=== PATIENT | female | born 1980 | race Caucasian/White ===

== ENCOUNTER 2023-05-18 11:07 | Outpatient (OUT) | payer OTHER, SELFPAY | END 2023-05-18 11:08 | disposition home or self-care (01) | PROVIDERS: Family Provider Family Medicine; PCP Radiology Diagnostic Radiology; Visit Provider Radiology Diagnostic Radiology | DX: I83.813 Varicose veins of bilateral lower extremities with pain (principal) ==

== ENCOUNTER 2023-06-06 13:17 | Outpatient (OUT) | payer OTHER, SELFPAY ==
--- NOTE | 2023-06-06 13:20 | VEIN_ITS ---
Patient Name: MARILOU COLÓN MR#: [id number] : 1980 Exam Date: 06/06/2023 Ordering Doctor: DR YVONNE RIDDLE M.D. RADIOLOGY REPORT PROCEDURE: [facility] - OFFICE VISIT INITIAL COMPARISON: None. PROGRESS NOTES: [age] year old female who presents with a 20 year history of leg pain, swelling, aching, throbbing, dilated bulging veins. The patient's left leg symptoms are worse than the right. There has been a progression of symptoms over time. This increases with prolonged leg dependency. The patient describes an improvement with rest and elevation. The patient denies any signs and symptoms to suggest arterial ischemia. The patient describes a family history : Noncontributory. The patient has drinking and smoking history of occasional alcohol consumption; no tobacco use. Patient has a past medical history significant for prior left lower extremity veins stripping. The patient denies a history of deep venous thrombus or pulmonary embolus. See separate history and physical for medication list. Prior stripping of proximal left great saphenous vein approximately 12 years ago. Long-term use of compression stockings. After review of nurse notes, history and physical exam I discussed at length the pathophysiology of venous hypertension and possible treatments, therapies and strategies available. We discussed at length the importance of elevating the lower extremities above the level of the heart, increased physical activity and compression stocking use. Ultrasound venous reflux study performed today was discussed at length with the patient. The report demonstrates prominent reflux within great and small saphenous veins bilaterally with only slight dilation of proximal right and mid left great saphenous veins, and prominent dilation of small saphenous veins bilaterally. Multiple large branch saphenous varicosities bilaterally. PHYSICAL EXAM: The right leg demonstrates prominent superficial varicosities, a few scattered spider veins, no ulceration, no edema, no skin discoloration. The left leg demonstrates prominent superficial varicosities, a few scattered spider veins, no ulceration, only slight edema at time of valuation but patient describes developing edema after prolonged standing/working, no skin discoloration. Both thighs, legs and feet were symmetrically warm to the touch. Good posterior tibial and dorsalis pedis pulses were present bilaterally. VEIN/[facility] EST Comprehensive IMPRESSION: 1. Bilateral lower extremity venous insufficiency 2. Bilateral lower extremity varicose veins 3. Mild left lower extremity subcutaneous edema 4. No flow significant arterial disease 5. CEAP: C3, AP, AP, OR PLAN: 1. Continued use of compression stockings 2. Elevated legs and increased physical activity symptomatic relief 3. Treatment of symptomatic left leg with endovenous laser ablation of small saphenous vein and microfoam chemical ablation. 4. Follow-up with asymptomatic right leg when patient is experiencing more symptoms per patient request. Nurse notes, history and physical were reviewed and confirmed, see attached forms. The nurse was present throughout the physical exam and consultation Dictated by: Dennis Nobles M.D. on 06/06/2023 at 15:20 Approved by: Dennis Nobles M.D. on 06/06/2023 at 15:27
--- NOTE | 2023-06-06 13:20 | VEIN_ITS ---
Patient Name: MARILOU COLÓN MR#: [id number] : 1980 Exam Date: 06/06/2023 Ordering Doctor: DR YVONNE RIDDLE M.D. RADIOLOGY REPORT PROCEDURE: [facility] EXT VENOUS REFLUX SANDRA LMTD COMPARISON: None. INDICATIONS: I83.813 Bilateral painful varicose veins TECHNIQUE: Duplex imaging of the lower extremity to assess the deep and superficial venous system for the presence of deep or superficial venous incompetence and to document the location and severity of disease. The study includes evaluation of the great saphenous vein (GSV), anterior accessory saphenous vein (AASV) and small saphenous vein (SSV). Patient scanned in reverse Trendelenburg and standing. FINDINGS: RIGHT LOWER EXTREMITY: Saphenofemoral Junction Reflux: Yes 11.8mm 1.7 sec GSV: Diam (mm) Reflux/ Time (sec) Proximal Thigh 5.6 Yes 2.7 Mid Thigh 4.5 Yes 1.2 Distal Thigh 4.4 Yes 1.4 Prox Calf 3.7 Yes 1.7 Mid Calf 2.5 No Saphenopopliteal Junction Reflux: 6.2mm Yes 2.1 SSV: Proximal Calf 7.6 Yes 1.0 Mid Calf 2.9 Yes 1.3 AASV: Not present Proximal Thigh Mid Thigh Distal Thigh Thrombi: No acute or chronic thrombus visualized Compressibility: Normal Flow: Normal Preforator: Dist/med calf 2.1mm with 0s reflux. Prox/ant thigh 7.9mm with 1.0s reflux with multiple large varicose veins coming off and across thigh. Tech Note: Incompetent GSV and SSV. Patent varicose vein mid/ant thigh 4.6mm with 0.8s reflux. LEFT LOWER EXTREMITY: Saphenofemoral Junction Reflux: Yes 10.7 mm 2.2 sec GSV: Diam (mm) Reflux/Time (sec) Proximal Thigh N/A Mid Thigh 5.8 Yes 1.2 Distal Thigh 5.0 Yes 1.8 Prox Calf N/A Mid Calf N/A Saphenopopliteal Junction Relux: 7.1 mm Yes 3.6 SSV: Proximal Calf 7.3 Yes 1.8 Mid Calf 4.6 Yes 1.2 AASV: Not present Proximal Thigh Mid Thigh Distal Thigh Thrombi: Chronic appearing thrombus visualized in a varicose vein at medial knee. Compressibility: Normal Flow: Normal Pre Owned Sales Consultant: No perforators. Tech Note: Incompetent GSV and SSV. Patent varicose vein prox/ant thigh 6.5mm with 1.8s reflux. Patent varicose vein mid/ant thigh 5.8mm with 1.6s reflux. CONCLUSION: 1. Slight abnormal dilation of the great saphenous veins bilaterally with prominent reflux. 2. Abnormal dilation and incompetency of small saphenous veins bilaterally. 3. Multiple prominent incompetent branch saphenous varicosities bilaterally. Dictated by: Dennis Nobles M.D. on 06/06/2023 at 14:26 Approved by: Dennis Nobles M.D. on 06/06/2023 at 15:19
--- OUTSIDE RECORDS SUMMARY | 2023-06-06 13:23 | XMS_ITS | CCD ---
Author Name Unknown Address [address] [place] [address] Organization [facility] Care Team Providers Care Playground Worker Name Role Phone MARU EDWARD Unavailable Unavailable MATEUSZ BURNETT Unavailable Unavailable Mateusz Burnett Primary Care Provider SALVATORE LI Referring Unavailable MATEUSZ BURNETT Primary Care Unavailable Mateusz Burnett Primary Care Provider ADAPPA, RAYRAY Referring Unavailable MATEUSZ BURNETT Primary Care Unavailable ADAPPA, RAYRAY Referring Unavailable MATEUSZ BURNETT Primary Care Unavailable ADAPPA, RAYRAY Admitting Unavailable ADAPPA, RAYRAY Attending Unavailable MATEUSZ BURNETT Primary Care Unavailable Chidi RESOLUTION MANAGER - DISPOSAL OPERATOR, Anahi Gilbert Primary Care Pr ovider Maldonado Ulloa Jr. Unavailable Elva Martins Unavailable Maldonado Ulloa Unavailable Jenna Olson Unavailable Chidi RESOLUTION MANAGER - DISPOSAL OPERATOR, Anahi Gilbert Primary Care Pr ovider INDIA Murillo Primary Care Provider INDIA Murillo Attending Provider Chidi RESOLUTION MANAGER - DISPOSAL OPERATOR, Anahi Gilbert Primary Care Pr ovider YVONNE LARA MD Attending Unavailable SALVATORE LI Referring Unavailable ANAHI MURILLO Primary Care Unavailabl SALVATORE Cerna Referring Unavailable ANAHI MURILLO Primary Care Unavailabl e Jenna Olson Admitting Unavailable Jenna Olson Attending Unavailable Anahi Murillo Primary Care Anahi Ramos Admitting Anahi Raoms Attending Anahi Ramos Primary Care Unavailabl e Self, Referral Admitting Unavailable Self, Referral Attending Unavailable Anahi Murillo Primary Care Unavailisaac dubose Medications Current Medications Medication Drug Class(es) Dates Sig (Normalized) Sig (Original) 0.5 ML semaglutide 0.5 MG/ML Auto-Injector [Wegovy] (2 sources) Start: 02-23-2021 Wegovy 0.25 MG/0.5ML as directed Subcutaneous Weekly for 30 days Jan, Active acetaminophen 325 mg / oxyCODONE hydrochloride 5 mg oral tablet (1 source) Opioid Agonist Start: 02-17-2020 End: 02-17-2020 oxyCODONE-acetamin ophen (PERCOCET) 5-325 MG per tablet 1 tablet calcium chloride 0.0014 meq/ml / potassium chloride 0.004 meq/ml / sodium chloride 0.103 meq/ml / sodium lactate 0.028 meq/ml injectable solution (1 source) Start: 02-17-2020 lactated ringers infusion citalopram 10 mg oral tablet (3 sources) Serotonin Reuptake Inhibitor take 1 tablet by mouth every twenty-four hours CeleXA 10 MG 1 tablet Orally Once a day Active take 1 tablet by butch th every twenty-four hours CeleXA 20 MG 1 tablet Orally Once a day Active 1 ml diphenhydrAMINE hydrochloride 50 mg/ml cartridge (1 source) Histamine-1 Receptor Antagonist Start: 02-17-2020 End: 02-17-2020 diphenhydrAMINE (BENADRYL) injection 12.5 mg 2 ml fentaNYL 0.05 mg/ml injection (1 source) Opioid Agonist Start: 02-17-2020 fentaNYL (SUBLIMAZE) injection 25 mcg 1 ml hydrALAZINE hydrochloride 20 mg/ml injection (1 source) Arteriolar Vasodilator Start: 02-17-2020 hydrALAZINE (APRESOLINE) injection 5 mg 1 ml HYDROmorphone hydrochloride 1 mg/ml cartridge (1 source) Opioid Agonist Start: 02-17-2020 HYDROmorphone (DILAUDID) injection 0.5 mg hydrOXYzine hydrochloride 25 mg oral tablet (11 sources) Antihistamine hydrOXYzine HCl 25 MG 1 tablet as needed Orally PRN Active 4 ml labetalol hydrochloride 5 mg/ml cartridge (1 source) beta-Adrenergic Gerard Start: 02-17-2020 labetalol (NORMODYNE;TRANDATE ) injection 5 mg 10 ml lidocaine hydrochloride 10 mg/ml injection (1 source) Antiarrhythmic, Amide Local Anesthetic Start: 02-17-2020 End: 02-17-2020 lidocaine PF 1 % injection 1 mL 2 ml metoclopramide 5 mg/ml prefilled syringe (1 source) Dopamine-2 Receptor Antagonist Start: 02-17-2020 End: 02-17-2020 metoclopramide (REGLAN) injection 10 mg minocycline 100 mg oral capsule (3 sources) Tetracycline-class Drug take 1 capsule by mouth once daily minocycline (MINOCIN;DYNACIN) 100 MG capsule Take 100 mg by mouth daily rosacea 0 Active phentermine hydrochloride 37.5 mg oral tablet (1 source) Sympathomimetic Amine Anorectic Start: 11-04-2019 End: 12-04-2019 take 1 tablet by mouth once daily before breakfast phentermine (ADIPEX-P) 37.5 MG tablet Indications: Obesity (BMI 35.0-39.9 without comorbidity) Take 1 tablet by mouth every morning (before breakfast) for 30 days. 30 tablet 0 11/04/2019 12/04/2019 Active 24 hr phentermine 7.5 mg / topiramate 46 mg extended release oral capsule (12 sources) Sympathomimetic Amine Anorectic take 1 capsule by mouth every twenty-four hours Qsymia 7.5-46 MG 1 capsule Orally Once a day for 30 days Active take 1 capsule by mo ut every twenty-four hours take 1 tablet by mouth once rosendo y Qsymia 7.5 MG /46 MG 7.5 MG /46 MG 1 Tablet Orally Once a day for 30 days Not-Taking take 1 tablet by mouth once rosendo y Qsymia 7.5 MG /46 MG 7.5 MG /46 MG 1 Tablet Orally Once a day for 30 days Active take 1 tablet by mouth once rosendo y Qsymia 3.75 MG / 23 MG 3.75 MG / 23 MG 1 Tablet Orally Once a day for 14 days Active promethazine (PHENERGAN) 6.2 5 mg in sodium chloride 0.9 % 50 mL IVPB (1 source) Start: 02-17-2020 End: 02-17-2020 promethazine (PHENERGAN) 6.2 5 mg in sodium chloride 0.9 % 50 mL IVPB 3 ml sodium chloride 9 mg/ml injection (3 sources) Start: 02-17-2020 sodium chlorid e flush 0.9 % injection 10 mL Start: 02-17-2020 End: 02-17-2020 0.9 % sodium chloride bolus Start: 02-17-2020 sodium chlorid e flush 0.9 % injection 10 mL Problems Active Problems Problem Classification Problem Date Documented Date Episodic/Chronic Administrative/social admission (2 sources) Encounter for pre-employment examination; Translations: [Encounter for pre-employment examination] Onset: 03-25-2018 Episodic Anxiety disorders (16 sources) Anxiety; Translations: [Anxiety disorder, unspecified] Onset: 02-23-2021 Resolved: 09-14-2021 Chronic Cancer of cervix (4 sources) Low grade squamous intraepithelial lesion on cervical Papanicolaou smear; Translations: [Low grade squamous intraepithelial lesion on cytologic smear of cervix (LGSIL)] Onset: 08-11-2022 Episodic Disorders of lipid metabolism (16 sources) Mixed hyperlipidemia; Translations: [Mixed hyperlipidemia] Onset: 02-23-2021 Resolved: 09-14-2021 Chronic Malaise and fatigue (1 source) Other fatigue; Translations: [Other fatigue] Onset: 07-05-2022 Episodic Nutritional deficiencies (2 sources) Vitamin D deficiency; Translations: [Vitamin D deficiency, unspecified] Onset: 09-14-2021 Resolved: 09-14-2021 Chronic Other female genital disorders (1 source) Cervical atypism; Translations: [ASCUS of cervix with negative high risk HPV] Episodic Other female genital disorders (1 source) Lesion of vulva; Translations: [Vulval lesion] Episodic Other nervous system disorders (7 sources) Skin sensation disturbance; Translations: [Paresthesia of skin] Episodic Other nutritional; endocrine; and metabolic disorders (14 sources) Obesity; Translations: [Obesity, unspecified] Chronic Other nutritional; endocrine; and metabolic disorders (12 sources) Body mass index 30+ - obesity; Translations: [Body mass index (BMI) 35.0-35.9, adult] Chronic Other nutritional; endocrine; and metabolic disorders (11 sources) Obese class II; Translations: [Body mass index (BMI) 36.0-36.9, adult] Chronic Other nutritional; endocrine; and metabolic disorders (11 sources) Morbid obesity; Translations: [Morbid (severe) obesity due to excess calories] Chronic Other nutritional; endocrine; and metabolic disorders (5 sources) Obesity, unspecified; Translations: [Obesity (BMI 35.0-39.9 without comorbidity) E66.9] Onset: 02-23-2021 Resolved: 09-14-2021 Chronic Unclassified (2 sources) Patient encounter status; Translations: [Women's annual routine gynecological examination] Unclassified (1 source) Encounter for screening mammogram for malignant neoplasm of breast; Translations: [Encounter for screening mammogram for malignant neoplasm of breast] Onset: 08-14-2022 Unclassified (1 source) Dietary counseling and surveillance; Translations: [Dietary counseling and surveillance] Onset: 09-14-2021 Past or Other Problems Problem Classification Problem Date Documented Da te Episodic/Chronic Other aftercare (3 sources) Other technician terminal and repeater (current) drug therapy Onset: 06-01-2021 Resolved: 09-14-2021 Episodic Other nervous system disorders (2 sources) Paresthesia of skin Onset: 06-01-2021 Resolved: 08-12-2021 Episodic Results Test Name Value Interpretation Reference Range Facility HPV DNA High Riskon 08-25-[address] [facility] Comment on above: Result Comment: This test amplifies and detects DNA of 14 high-risk HPV types associated with cervical cancer and its precursor lesions (HPV types 16,18, 31, 33, 35, 39, 45, 51, 52, 56, 58, 59, 66, and 68). Sensitivity may be affected by specimen collection methods, stage of infection, and the presence of interfering substances. Results should be interpreted in conjunction with other available laboratory and clinical data. A negative high-risk HPV result does not exclude the possibility of future cytologic HSIL or underlying CIN2-3 or cancer. This test is intended for medical purposes only and is not valid for the evaluation of suspected sexual abuse or for other forensic purposes. Performed By: #### H PV #### [employer] [address] [place] [address] Drip Molder: Kane Lawson MD HPV Type 16 Not detected Normal [facility] Comment on above: Performed By: #### H PV #### [employer] [address] [place] [address] Drip Molder: Kane Lawson MD HPV Type 18 Not detected Normal [facility] Comment on above: Performed By: #### H PVH #### [facility] [email or web address] [address] [place] [address] Drip Molder: Kane Lawson MD Other High Risk HPV Not detected Normal [facility] Comment on above: Performed By: #### H PVH #### [employer] [address] [place] [address] Drip Molder: Kane Lawson MD HPV DNA High Riskon 08-22-19 HPV Sample .THIN PREP [facility] Comment on above: Performed By: #### H PVH #### [facility] [email or web address] [address] [place] [address] Drip Molder: Kane Lawson MD Source CERVICAL MATERIAL Normal [facility] Comment on above: Performed By: #### H PVH #### [facility] [email or web address] [address] [place] [address] Drip Molder: Kane Lawson MD MM screening mammo BI w/CADo n 08-14-2022 MM screening mammo BI w/CAD [place] [address] Mammography Report Signed Patient: Marilou Red MR#: [id number] 9 : 1980 Acct:[id number] Age/Sex: 41 / F ADM Date: 08/14/22 Loc: [place] Room: Type: [facility] Attending Dr: Referral Self Copies to: SELF,REFERRAL Anahi Murillo APRN,DISPOSAL OPERATOR Ordering Provider: SELF,REFERRAL Date of Service: 08/14/22 MM/MM screening mammo BI w/CAD: SCREENING CLINICAL DATA: Screening for malignancy. BILATERAL SCREENING MAMMOGRAMS - FULL FIELD DIGITAL WITH TOMOSYNTHESIS AND CAD Tomosynthesis craniocaudal and mediolateral oblique views of both breasts were obtained using low- dose digital technique. Comparison is made to prior studies from 08/12/2021, 08/09/2020, 08/08/2019, and 05/08/2017. This examination was reviewed with the aid of CAD. There are scattered fibroglandular densities. There is a biopsy clip in the right breast which is unchanged. Benign-appearing lymph nodes are noted along the right chest wall. There are similar foca l asymmetries bilaterally. There are no dominant masses, typically malignant calcifications or architectural distortion. There has been no significant interval change. MM/MM screening mammo BI w/CAD IMPRESSION: NO MAMMOGRAPHIC EVIDENCE OF MALIGNANCY. ROUTINE FOLLOW-UP IS RECOMMENDED IN ONE YEAR. RESULT CODE: 2 Benign Findings(s) DENSITY CODE: 2 (approximately 25-50% glandular) FOLLOW UP: 1YR The false-negative rate of mammography is approximately 10-percent. Management of a palpable abnormality must be based on clinical grounds. Patient was entered into a reminder system with a target due date for the next mammogram. Impression dictated by: Alphonso Dye M.D.08/14/2022 1:17 PM Dictation Location: [facility] Transcribed By: [facility] 08/14/22 1317 Dictated By: Alphonso Dye II, MD 08/14/22 1309 Signed By: 08/14/22 1317 [facility] Cytologyon 08-11-2022 Cytology (NOTE) INTERPRETATION Cervical material, (ThinPrep vial, Imaging-assisted review): Specimen Adequacy: Satisfactory for evaluation. - Endocervical/transform ation zone component present. Descriptive Diagnosis: Atypical squamous cells of undetermined significance (ASC-US). Lard Refiner: SYLVIA Garcia Electronically Signed Out ag/08/21/2022 Procedure/Addendum HPV Procedure Report Date Ordered: 08/21/2022 Status: Signed Out Date Complete: 08/24/2022 By: System Interface Date Reported: 08/24/2022 Sample: HPV Type 16 Result: Not Detected Ref Range: (Not Detected) Sample: HPV Type 18 Result: Not Detected Ref Range: (Not Detected) Sample: Other High Risk HPV Result: Not Detected Ref Range: (Not Detected) Sample: HPV Interp Result: Ref Range: (Not Detected) This test amplifies and detects DNA of 14 high-risk HPV types associated with cervical cancer and its precursor lesions (HPV types 16,18, 31, 33, 35, 39, 45, 51, 52, 56, 58, 59, 66, and 68). Sensitivity may be affected by specimen collection methods, stage of infection, and the presence of interfering substances. Results should be interpreted in conjunction with other available laboratory and clinical data. A negative high-risk HPV result does not exclude the possibility of future cytologic HSIL or underlying CIN2-3 or cancer. This test is intended for medical purposes only and is not valid for the evaluation of suspected sexual abuse or for other forensic purposes. Source: A: Cervical material, (ThinPrep vial, Imaging-assisted review) Clinical History R87.612 Cytology smear of cervix with LSIL High risk HPV DNA testing is requested if the diagnosis is abnormal LMP: 07/24/2022 GYNECOLOGIC CYTOLOGY REPORT Patient Name: MARILOU RED [facility] Rec: [id number] Path Number: [id number] [facility] [facility] ANATOMIC PATHOLOGY [address] [place] [id number] [facility] Comment on above: Performed By: #### P PPVP #### [facility] [email or web address] [address] [place] [id number] Drip Molder: Kane Lawson MD Albumin [Mass/volume] in Ser um or PlasmaOrdered By: Anahi Murillo on 07-05-2022 Albumin [Mass/Vol] 3.8 g/dL 3.2-5.5 [facility] Basophils Auto (Bld) [#/Vol] Ordered By: Anahi Murillo on 07-05-2022 Basophils (Bld) [#/Vol] 0.0 10*3/uL 0.0-0.2 [facility] Basophils/100 WBC Auto (Bld) Ordered By: Anahi Murillo on 07-05-2022 Basophils/100 WBC (Bld) 0.7 % . [facility] Cholesterol [Mass/volume] in Serum or PlasmaOrdered By: Anahi Murillo on 07-05-2022 Cholesterol [Mass/Vol] 169 mg/dL 140-200 [facility] Comment on above: Chol less than 200 m g/dl low riskChol 201-239 mg/dl borderline riskChol 240 mg/dl and greater high risk Cholesterol in LDL Calc [Mas s/Vol]Ordered By: Anahi Murillo on 07-05-2022 Cholesterol in LDL [Mass/Vol] 94 mg/dL 0-100 [facility] Comment on above: LDL ATP III CLASSIFI CATIONLDL less than 100 mg/dL OptimalLDL 100-129 mg/dL Near or above optimalLDL 130-159 mg/dL Borderline highLDL 160-189 mg/dL HighLDL greater than 189 mg/dL Very high Cholesterol in VLDL Calc [Ma ss/Vol]Ordered By: Anahi Murillo on 07-05-2022 Cholesterol in VLDL [Mass/Vol] 30 mg/dL [facility] Complete Blood Count Auto Di ffon 07-05-2022 Basophils (Bld) [#/Vol] 0.0 10*3/uL Normal 0.0-0.2 [facility] Comment on above: Result Comment: PERF ORMED BY: [place] [address] PATHOLOGIST ASSOCIATE PROFESSOR OF CHEMISTRY MIKALA ENGLAND M.D. Performed By: #### C BC, T4F, CMP, LIPID, TSH3 #### [facility] [address] Basophils/100 WBC (Bld) 0.7 % Normal . [facility] Comment on above: Performed By: #### C BC, T4F, CMP, LIPID, TSH3 #### [facility] [address] [place] [address] [place] Eosinophils (Bld) [#/Vol] 0.2 10*3/uL Normal 0.0-0.45 [facility] Comment on above: Performed By: #### C BC, T4F, CMP, LIPID, TSH3 #### [facility] [address] [place] [address] [place] Eosinophils/100 WBC (Bld) 3.1 % Normal . [facility] Comment on above: Performed By: #### C BC, T4F, CMP, LIPID, TSH3 #### [address] Erythrocyte distribution width (RBC) [Ratio] 14.8 % Normal 11.9-15.3 [facility] Comment on above: Performed By: #### C BC, T4F, CMP, LIPID, TSH3 #### [address] Hematocrit (Bld) [Volume fraction] 38.2 % Normal 34.0-46.4 [facility] Comment on above: Performed By: #### C BC, T4F, CMP, LIPID, TSH3 #### [address] Hemoglobin (Bld) [Mass/Vol] 12.7 g/dL Normal 11.8-15.4 [facility] Comment on above: Performed By: #### C BC, T4F, CMP, LIPID, TSH3 #### [address] Lymphocytes (Bld) [#/Vol] 1.5 10*3/uL Normal 1.00-4.8 [facility] Comment on above: Performed By: #### C BC, T4F, CMP, LIPID, TSH3 #### [address] Lymphocytes/100 WBC (Bld) 27.6 % Normal . [facility] Comment on above: Performed By: #### C BC, T4F, CMP, LIPID, TSH3 #### [address] MCH (RBC) [Entitic mass] 29.1 pg Normal 24.7-34.3 [facility] Comment on above: Performed By: #### C BC, T4F, CMP, LIPID, TSH3 #### [address] MCV (RBC) [Entitic vol] 87.5 fL Normal 80-100 [facility] Comment on above: Performed By: #### C BC, T4F, CMP, LIPID, TSH3 #### [address] Mean Corpuscular HGB Conc 33.3 g/dL Normal 32.0-35.0 [facility] Comment on above: Performed By: #### C BC, T4F, CMP, LIPID, TSH3 #### [facility] [address] Monocytes (Bld) [#/Vol] 0.4 10*3/uL Normal 0.0-0.8 [facility] Comment on above: Performed By: #### C BC, T4F, CMP, LIPID, TSH3 #### [facility] [address] Monocytes/100 WBC (Bld) 7.0 % Normal . [facility] Comment on above: Performed By: #### C BC, T4F, CMP, LIPID, TSH3 #### [address] Neutrophils (Bld) [#/Vol] 3.4 10*3/uL Normal 1.8-7.7 [facility] Comment on above: Performed By: #### C BC, T4F, CMP, LIPID, TSH3 #### [address] Neutrophils/100 WBC (Bld) 61.6 % Normal . [facility] Comment on above: Performed By: #### C BC, T4F, CMP, LIPID, TSH3 #### [address] NRBC% 0.2 /100{WBC} Normal 0-0.5 [facility] Comment on above: Performed By: #### C BC, T4F, CMP, LIPID, TSH3 #### [facility] [address] Platelet mean volume (Bld) [Entitic vol] 8.5 fL Normal 6.3-10.7 [facility] Comment on above: Performed By: #### C BC, T4F, CMP, LIPID, TSH3 #### [place] [address] [place] Platelets (Bld) [#/Vol] 270 10*3/uL Normal 150-450 [facility] Comment on above: Performed By: #### C BC, T4F, CMP, LIPID, TSH3 #### [address] RBC (Bld) [#/Vol] 4.36 10*6/uL Normal 3.60-5.00 [facility] Comment on above: Performed By: #### C BC, T4F, CMP, LIPID, TSH3 #### [address] WBC (Bld) [#/Vol] 5.5 10*3/uL Normal 3.8-11.6 [facility] Comment on above: Performed By: #### C BC, T4F, CMP, LIPID, TSH3 #### [address] Comprehensive Metabolic Pane lenora 07-05-2022 Albumin [Mass/Vol] 3.8 g/dL Normal 3.2-5.5 [facility] Comment on above: Performed By: #### C BC, T4F, CMP, LIPID, TSH3 #### [address] Albumin/Globulin [Mass ratio] 1.5 {ratio} Normal [facility] Comment on above: Performed By: #### C BC, T4F, CMP, LIPID, TSH3 #### [address] ALP [Catalytic activity/Vol] 77 U/L Normal 32-92 [facility] Comment on above: Performed By: #### C BC, T4F, CMP, LIPID, TSH3 #### [address] ALT [Catalytic activity/Vol] 14 U/L Normal 10-60 [facility] Comment on above: Performed By: #### C BC, T4F, CMP, LIPID, TSH3 #### [address] Anion gap [Moles/Vol] 10.7 mmol/L Normal 6.0-15.0 [facility] Comment on above: Performed By: #### C BC, T4F, CMP, LIPID, TSH3 #### [facility] [address] AST [Catalytic activity/Vol] 18 U/L Normal 10-42 [facility] Comment on above: Performed By: #### C BC, T4F, CMP, LIPID, TSH3 #### [facility] [address] Bilirubin [Mass/Vol] 0.5 mg/dL Normal 0.3-1.2 [facility] Comment on above: Performed By: #### C BC, T4F, CMP, LIPID, TSH3 #### [address] Calcium [Mass/Vol] 9.1 mg/dL Normal 8.2-10.2 [facility] Comment on above: Performed By: #### C BC, T4F, CMP, LIPID, TSH3 #### [address] Chloride [Moles/Vol] 105 mmol/L Normal 95-114 [facility] Comment on above: Performed By: #### C BC, T4F, CMP, LIPID, TSH3 #### [address] CO2 [Moles/Vol] 25.8 mmol/L Normal 22.0-30.0 [facility] Comment on above: Performed By: #### C BC, T4F, CMP, LIPID, TSH3 #### [address] Creatinine [Mass/Vol] 0.73 mg/dL Normal 0.44-1.03 [facility] Comment on above: Performed By: #### C BC, T4F, CMP, LIPID, TSH3 #### [place] [address] [place] Estimated GFR ( Berkley > 60 Normal [facility] Comment on above: Result Comment: GFR estimated reference range: According to KDOQI guidelines, <60 ml/min/1.73m2 is sufficient to diagnose a patient with chronic kidney disease. Performed By: #### C BC, T4F, CMP, LIPID, TSH3 #### [facility] [address] Estimated GFR (Non- Am > 60 Normal [facility] Comment on above: Performed By: #### C BC, T4F, CMP, LIPID, TSH3 #### [facility] [address] Globulin (S) [Mass/Vol] 2.6 g/dL Normal [facility] Comment on above: Performed By: #### C BC, T4F, CMP, LIPID, TSH3 #### [address] Glucose [Mass/Vol] 88 mg/dL Normal 70-100 [facility] Comment on above: Result Comment: [facility] Glucose Reference Range is dependent on time and content of last meal. Glucose of more than 200 mg/dL in a nonstressed, ambulatory subject supports the diagnosis of Diabetes Mellitus. ADA recommended reference range Performed By: #### C BC, T4F, CMP, LIPID, TSH3 #### [address] Potassium [Moles/Vol] 4.5 mmol/L Normal 3.5-5.1 [facility] Comment on above: Performed By: #### C BC, T4F, CMP, LIPID, TSH3 #### [address] Protein [Mass/Vol] 6.4 g/dL Normal 6.1-7.9 [facility] Comment on above: Performed By: #### C BC, T4F, CMP, LIPID, TSH3 #### [address] Sodium [Moles/Vol] 137 mmol/L Normal 136-146 [facility] Comment on above: Performed By: #### C BC, T4F, CMP, LIPID, TSH3 #### [place] [address] [place] Urea nitrogen [Mass/Vol] 12 mg/dL Normal 9-23 [facility] Comment on above: Performed By: #### C BC, T4F, CMP, LIPID, TSH3 #### [facility] [address] Creatinine and Glomerular fi ltration rate.predicted panel (S/P/Bld)Ordered By: Anahi Murillo on 07-05-2022 Creatinine [Mass/Vol] 0.73 mg/dL 0.44-1.03 [facility] Eosinophils Auto (Bld) [#/Vo l]Ordered By: Anahi Murillo on 07-05-2022 Eosinophils (Bld) [#/Vol] 0.2 10*3/uL 0.0-0.45 [facility] Eosinophils/100 WBC Auto (Bl d)Ordered By: Anahi Murillo on 07-05-2022 Eosinophils/100 WBC (Bld) 3.1 % . [facility] Erythrocyte distribution wid th Auto (RBC) [Ratio]Ordered By: Anahi Murillo on 07-05-2022 Erythrocyte distribution width (RBC) [Ratio] 14.8 % 11.9-15.3 [facility] Estimated glomerular filtrat ion rate (GFR) non- AmericanOrdered By: Anahi Murillo on 07-05-2022 GFR/1.73 sq M.predicted among non-blacks MDRD (S/P/Bld) [Vol rate/Area] > 60 mL/Min [facility] Free T4 (Free Thyroxine)on 0 07-05-2022 Free T4 [Mass/Vol] 0.68 ng/dL Normal 0.61-1.12 [facility] Comment on above: Performed By: #### C BC, T4F, CMP, LIPID, TSH3 #### [facility] [address] Globulin Calc (S) [Mass/Vol] Ordered By: Anahi Murillo on 07-05-2022 Globulin (S) [Mass/Vol] 2.6 g/dL [facility] Hematocrit Auto (Bld) [Volum e fraction]Ordered By: Anahi Murillo on 07-05-2022 Hematocrit (Bld) [Volume fraction] 38.2 % 34.0-46.4 [facility] Hemoglobin [Mass/volume] in BloodOrdered By: Anahi Murillo on 07-05-2022 Hemoglobin (Bld) [Mass/Vol] 12.7 g/dL 11.8-15.4 [facility] Leukocytes [#/volume] correc evelio for nucleated erythrocytes in Blood by Automated counOrdered By: Anahi Murillo on 07-05-2022 WBC corrected for nucl RBC Auto (Bld) [#/Vol] 5.5 10*3/uL 3.8-11.6 [facility] Lipid Panelon 07-05-2022 Cholesterol [Mass/Vol] 169 mg/dL Normal 140-200 [facility] Comment on above: Result Comment: Chol less than 200 mg/dl low risk Chol 201-239 mg/dl borderline risk Chol 240 mg/dl and greater high risk Performed By: #### C BC, T4F, CMP, LIPID, TSH3 #### [facility] [address] Cholesterol in HDL [Mass/Vol] 44 mg/dL Normal 35-85 [facility] Comment on above: Result Comment: HDL CHOL ATP-III CLASSIFICATION Cardiovascular Risk HDL > or equal to 60 mg/dL LOW HDL < 40 mg/dL HIGH Performed By: #### C BC, T4F, CMP, LIPID, TSH3 #### [facility] [address] [place] [address] [facility] Cholesterol.total/Choles terol in HDL [Mass ratio] 3.8 {ratio} Normal <5.0 [facility] Comment on above: Performed By: #### C BC, T4F, CMP, LIPID, TSH3 #### [facility] [address] [place] [id number] [facility] LDL Cholesterol,Calculated 94 mg/dL Normal 0-100 [facility] Comment on above: Result Comment: LDL ATP III CLASSIFICATION LDL less than 100 mg/dL Optimal LDL 100-129 mg/dL Near or above optimal LDL 130-159 mg/dL Borderline high LDL 160-189 mg/dL High LDL greater than 189 mg/dL Very high Performed By: #### C BC, T4F, CMP, LIPID, TSH3 #### [facility] [address] Triglyceride w/Reflex 153 mg/dL High 35-149 [facility] Comment on above: Result Comment: TRIG ATP III CLASSIFICATION TRIG less than 150 mg/dL Normal TRIG 150-199 mg/dL Borderline high TRIG 200-500 mg/dL High TRIG greater than 500 mg/dL Very high Standard traceable to the Center for Disease Conrtrol and Prevention (CDC) test method. Performed By: #### C BC, T4F, CMP, LIPID, TSH3 #### [facility] [address] VLDL CHOLESTEROL 30 mg/dL Normal [facility] Comment on above: Performed By: #### C BC, T4F, CMP, LIPID, TSH3 #### [facility] [address] Lymphocytes Auto (Bld) [#/Vo l]Ordered By: Anahi Murillo on 07-05-2022 Lymphocytes (Bld) [#/Vol] 1.5 10*3/uL 1.00-4.8 [facility] Lymphocytes/100 WBC Auto (Bl d)Ordered By: Anahi Murillo on 07-05-2022 Lymphocytes/100 WBC (Bld) 27.6 % . [facility] MCH Auto (RBC) [Entitic mass ]Ordered By: Anahi Murillo on 07-05-2022 MCH (RBC) [Entitic mass] 29.1 pg 24.7-34.3 [facility] MCHC Auto (RBC) [Mass/Vol]Or dered By: Anahi Murillo on 07-05-2022 MCHC (RBC) [Mass/Vol] 33.3 g/dL 32.0-35.0 [facility] MCV Auto (RBC) [Entitic vol] Ordered By: Anahi Murillo on 07-05-2022 MCV (RBC) [Entitic vol] 87.5 fL 80-100 [facility] Monocytes Auto (Bld) [#/Vol] Ordered By: Anahi Murillo on 07-05-2022 Monocytes (Bld) [#/Vol] 0.4 10*3/uL 0.0-0.8 [facility] Monocytes/100 WBC Auto (Bld) Ordered By: Anahi Murillo on 07-05-2022 Monocytes/100 WBC (Bld) 7.0 % . [facility] Neutrophils Auto (Bld) [#/Vo l]Ordered By: Anahi Murillo on 07-05-2022 Neutrophils (Bld) [#/Vol] 3.4 10*3/uL 1.8-7.7 [facility] Neutrophils/100 WBC Auto (Bl d)Ordered By: Anahi Murillo on 07-05-2022 Neutrophils/100 WBC (Bld) 61.6 % . [facility] No Panel InformationOrdered By: Anahi Murillo on 07-05-2022 Estimated GFR () > 60 mL/Min [facility] Comment on above: GFR estimated refere nce range: According to KDOQI guidelines, <60 ml/min/1.73m2 is sufficient to diagnose a patient with chronic kidney disease. Pharmacy Creatinine Clearance (Chem N/A [facility] Nucleated erythrocytes [Pres ence] in Blood by Automated countOrdered By: Anahi Murillo on 07-05-2022 Nucleated RBC Auto Ql (Bld) 0.2 /100{WBC} 0-0.5 [facility] Platelet mean volume Auto (B ld) [Entitic vol]Ordered By: Anahi Murillo on 07-05-2022 Platelet mean volume (Bld) [Entitic vol] 8.5 fL 6.3-10.7 [facility] Platelets Auto (Bld) [#/Vol] Ordered By: Anahi Murillo on 07-05-2022 Platelets (Bld) [#/Vol] 270 10*3/uL 150-450 [facility] Protein [Mass/volume] in Ser um or PlasmaOrdered By: Anahi Murillo on 07-05-2022 Protein [Mass/Vol] 6.4 g/dL 6.1-7.9 [facility] RBC Auto (Bld) [#/Vol]Ordere d By: Anahi Murillo on 07-05-2022 RBC (Bld) [#/Vol] 4.36 10*6/uL 3.60-5.00 [facility] Serum or plasma alanine stockton otransferase measurement without P-5'-P (enzymatic activiOrdered By: Anahi Murillo on 07-05-2022 ALT No additional P-5'-P [Catalytic activity/Vol] 14 U/L 10-60 [facility] Serum or plasma albumin/glob ulin mass ratioOrdered By: Anahi Murillo on 07-05-2022 Albumin/Globulin [Mass ratio] 1.5 {ratio} [facility] Serum or plasma alkaline daniel sphatase measurement (enzymatic activity/volume)Ordered By: Anahi Murillo on 07-05-2022 ALP [Catalytic activity/Vol] 77 U/L 32-92 [facility] Serum or plasma anion gap de terminationOrdered By: Anahi Murillo on 07-05-2022 Anion gap [Moles/Vol] 10.7 mmol/L 6.0-15.0 [facility] Serum or plasma aspartate am inotransferase measurement (enzymatic activity/volume)Ordered By: Anahi Murillo on 07-05-2022 AST [Catalytic activity/Vol] 18 U/L 10-42 [facility] Serum or plasma calcium narciso urement (mass/volume)Ordered By: Anahi Murillo on 07-05-2022 Calcium [Mass/Vol] 9.1 mg/dL 8.2-10.2 [facility] Serum or plasma chloride joao surement (moles/volume)Ordered By: Anahi Murillo on 07-05-2022 Chloride [Moles/Vol] 105 mmol/L 95-114 [facility] Serum or plasma glucose narciso urement (mass/volume)Ordered By: Anahi Murillo on 07-05-2022 Glucose [Mass/Vol] 88 mg/dL 70-100 [facility] Comment on above: ADA recommended refe rence rangeRandom Glucose Reference Range is dependent on time and content of last meal. Glucose of more than 200 mg/dL in a nonstressed, ambulatory subject supports the diagnosis of Diabetes Mellitus. Serum or plasma high density lipoprotein (HDL) cholesterol measurementOrdered By: Anahi Murillo on 07-05-2022 Cholesterol in HDL [Mass/Vol] 44 mg/dL 35-85 [facility] Comment on above: HDL CHOL ATP-III CLA SSIFICATION Cardiovascular RiskHDL > or equal to 60 mg/dL LOWHDL < 40 mg/dL HIGH Serum or plasma potassium me asurement (moles/volume)Ordered By: Anahi Murillo on 07-05-2022 Potassium [Moles/Vol] 4.5 mmol/L 3.5-5.1 [facility] Serum or plasma sodium measu rement (moles/volume)Ordered By: Anahi Murillo on 07-05-2022 Sodium [Moles/Vol] 137 mmol/L 136-146 [facility] Serum or plasma total biliru bin measurement (mass/volume)Ordered By: Anahi Murillo on 07-05-2022 Bilirubin [Mass/Vol] 0.5 mg/dL 0.3-1.2 [facility] Serum or plasma total carbon dioxide measurement (moles/volume)Ordered By: Anahi Murillo on 07-05-2022 CO2 [Moles/Vol] 25.8 mmol/L 22.0-30.0 [facility] Serum or plasma total choles terol/high density lipoprotein (HDL) cholesterol mass ratOrdered By: Anahi Murillo on 07-05-2022 Cholesterol.total/Choles terol in HDL [Mass ratio] 3.8 {ratio} <5.0 [facility] Serum or plasma urea nitroge n measurement (mass/volume)Ordered By: Anahi Murillo on 07-05-2022 Urea nitrogen [Mass/Vol] 12 mg/dL 9-23 [facility] TSH DL <= 0.005 mIU/L QnOrde red By: Anahi Murillo on 07-05-2022 TSH Qn 2.02 m[IU]/L 0.45-5.33 [facility] Thyroid Stimulating Hormoneo n 07-05-2022 TSH Qn 2.02 m[IU]/L Normal 0.45-5.33 [facility] Comment on above: Result Comment: PERF ORMED BY: [facility] [address] [place] [address] PATHOLOGIST ASSOCIATE PROFESSOR OF CHEMISTRY MIKALA ENGLAND M.D. Performed By: #### C BC, T4F, CMP, LIPID, TSH3 #### [facility] [address] [place] [address] [facility] Thyroxine (T4) free [Mass/vo lume] in Serum or PlasmaOrdered By: Anahi Murillo on 07-05-2022 Free T4 [Mass/Vol] 0.68 ng/dL 0.61-1.12 [facility] Triglyceride [Mass/volume] i n Serum or PlasmaOrdered By: Anahi Murillo on 07-05-2022 Triglyceride [Mass/Vol] 153 mg/dL 35-149 [facility] Comment on above: TRIG ATP III CLASSIF ICATIONTRIG less than 150 mg/dL NormalTRIG 150-199 mg/dL Borderline highTRIG 200-500 mg/dL High TRIG greater than 500 mg/dL Very highStandard traceable to the Center for Disease Conrtrol and Prevention (CDC) test method. WBC Auto (Bld) [#/Vol]Ordere d By: Anahi Murillo on 07-05-2022 WBC (Bld) [#/Vol] 5.5 10*3/uL 3.8-11.6 [facility] HPV DNA High Riskon 12-26-19 22 HPV Interp Normal [facility] Comment on above: Result Comment: This test amplifies and detects DNA of 14 high-risk HPV types associated with cervical cancer and its precursor lesions (HPV types 16,18, 31, 33, 35, 39, 45, 51, 52, 56, 58, 59, 66, and 68). Sensitivity may be affected by specimen collection methods, stage of infection, and the presence of interfering substances. Results should be interpreted in conjunction with other available laboratory and clinical data. A negative high-risk HPV result does not exclude the possibility of future cytologic HSIL or underlying CIN2-3 or cancer. This test is intended for medical purposes only and is not valid for the evaluation of suspected sexual abuse or for other forensic purposes. Performed By: #### H PV #### [employer] [facility] [place], [place] [id number] Drip Molder: Kane Lawson MD HPV Type 16 Not detected Normal [facility] Comment on above: Performed By: #### H PVH #### [employer] [address] [place] [address] Drip Molder: Kane Lawson MD HPV Type 18 Not detected Normal [facility] Comment on above: Performed By: #### H PVH #### [facility] [address] [place] [address] Drip Molder: Kane Lawson MD Other High Risk HPV Not detected Normal [facility] Comment on above: Performed By: #### H PVH #### [facility] [address] [place] [address] Drip Molder: Kane Lawson MD HPV DNA High Riskon 12-23-19 HPV Sample .THIN PREP Normal [facility] Comment on above: Performed By: #### H PVH #### [facility] [address] [place] [address] Drip Molder: Knae Lawson MD Source CERVICAL MATERIAL Normal [facility] Comment on above: Performed By: #### H PVH #### [facility] [address] [place] [address] Drip Molder: Kane Lawson MD Cytologyon 12-14-2021 Cytology (NOTE) INTERPRETATION Cervical material, (ThinPrep vial, Imaging-assisted review): Specimen Adequacy: Satisfactory for evaluation. - Endocervical/transform ation zone component present. Descriptive Diagnosis: Atypical squamous cells of undetermined significance (ASC-US). Fungal organisms morphologically consistent with Erica species. Lard Refiner: MYRNA Blake M.D. Electronically Signed Out rdd/12/22/2021 Procedure/Addendum HPV Procedure Report Date Ordered: 12/22/2021 Status: Signed Out Date Complete: 12/25/2021 By: System Interface Date Reported: 12/25/2021 Sample: HPV Type 16 Result: Not Detected Ref Range: (Not Detected) Sample: HPV Type 18 Result: Not Detected Ref Range: (Not Detected) Sample: Other High Risk HPV Result: Not Detected Ref Range: (Not Detected) Sample: HPV Interp Result: Ref Range: (Not Detected) This test amplifies and detects DNA of 14 high-risk HPV types associated with cervical cancer and its precursor lesions (HPV types 16,18, 31, 33, 35, 39, 45, 51, 52, 56, 58, 59, 66, and 68). Sensitivity may be affected by specimen collection methods, stage of infection, and the presence of interfering substances. Results should be interpreted in conjunction with other available laboratory and clinical data. A negative high-risk HPV result does not exclude the possibility of future cytologic HSIL or underlying CIN2-3 or cancer. This test is intended for medical purposes only and is not valid for the evaluation of suspected sexual abuse or for other forensic purposes. 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 Comment on above: Performed By: #### P PPVP #### [address] [address] Drip Molder: Kane Lawson MD OPERATIVE REPORTon 0 OPERATIVE REPORT [address] [address] OPERATIVE REPORT PATIENT NAME: MARILOU RED : 1980 MED REC NO: [id number] ROOM: ACCOUNT NO: [id number] ADMIT DATE: 02/17/2020 PROVIDER: Rayray Hart DATE OF PROCEDURE: 02/17/2020 PREOPERATIVE DIAGNOSIS: Cholesteatoma, right ear. 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 OPERATION PERFORMED: 1. Exploration of the right middle ear and removal of cholesteatoma. 2. Removal of prosthesis. SURGEON: Rayray Hart MD ANESTHESIA: General. BLOOD LOSS: Minimal. COMPLICATIONS: None. SPECIMEN: Cholesteatoma and middle ear prosthesis. INDICATION: This lady had a large cholesteatoma removal in the past, and now is noted to have recurrence with a small blanca-like cholesteatoma and chronic infection, and now comes in for the above procedure. FINDINGS: There were two small blanca-like cholesteatomas in the inferior part of the ear canal covered by the tympanic membrane. The tympanic membrane markedly retracted and draping the medial wall. The PORP that she had placed in the past was lying on its side inferiorly with tympanic membrane draping it and was also removed. There was cholesteatomatous debris which was cleaned out. OPERATIVE PROCEDURE: General anesthesia was administered through an orotracheal intubation. The patient was supine on the table. The right ear was examined under the microscope and 1% Xylocaine with epinephrine 1:100,000 was infiltrated into the ear canal. The right ear was then prepped and draped in the usual manner. Findings as described above. The mucosa over the cholesteatoma seen inferiorly was dissected and the remnant of the tympanic membrane is draping it. One cholesteatoma like a blanca was removed and sent to pathology. The second one adjacent to it was smaller and suctioned out. Inferiorly, the prosthesis could be barely seen and the remnant of the tympanic membrane over it was reflected and a PORP seen and this was removed. There was cholesteatomatous debris in addition to the draping of the tympanic membrane which was suctioned and cleaned out. She has facial nerve. There was chronic infection, which was suctioned out and cleaned out. Gelfoam with Ciprodex otic drops was packed in the middle ear and the canal. The rest of the ear canal was filled with Bactroban ointment. She tolerated the procedure well and was sent to the recovery room in satisfactory condition. RAYRAY HART JEAN/Shirley_[email or web address]_T Doc#: [id number] CC: Normal [facility] POCT HCG, Prenancy, Uron Beta HCG ( test) Ql (U) Negative NEGATIVE [facility] [place] Comment on above: HCG screen is sensitive to 25 mIU/mL. However this test may tow picker lower levels of HCG. If further evaluation is needed please request quantitative HCG. - NOT REPORTED [place], [place] Surgical Pathologyon 020 Surgical Pathology (NOTE) [id number] [place] [id number] [facility] [place], [place] [id number] SURGICAL PATHOLOGY REPORT Patient Name: MARILOU RED MR#: [id number] Specimen #[id number] Final Diagnosis RIGHT EAR: CHOLESTEATOMA Aries Ferguson D.O. Electronically Signed Out cl/02/19/2020 Clinical Information Removal cholesteatoma right ear; patient to do COVID test at [facility], pt to bring results with her; formalin time: 15:16 Source: A: Cholesteatoma in right ear Gross Description Received in formalin labeled cholesteatoma right ear are portions of pink to pfeiffer-thomas soft tissue aggregating to approximately 0.4 x 0.2 x 0.1 cm . The specimen is entirely submitted in a single cassette. LJF/anayeli Microscopic Description Microscopic examination of one YURIDIA slide confirms the diagnosis. Normal [facility] Comment on above: Performed By: #### P PPES #### [facility] [address] [place] [address]. [place] [address] Drip Molder: Aries Ferguson DO CBC Auto Differentialon 01-26 Basophils (Bld) [#/Vol] 0.00 10*3/uL [place], [place] Basophils/100 WBC (Bld) 1 % 0 - 2 % [place], [place] Differential Type NOT REPORTED [place] Eosinophils (Bld) [#/Vol] 0.20 10*3/uL [place] Eosinophils/100 WBC (Bld) 3 % 0 - 4 % [place] Erythrocyte distribution width (RBC) [Ratio] 13.7 % 11.5 - 14.9 % [place] Hematocrit (Bld) [Volume fraction] 39.0 % 36 - 46 % [place] Hemoglobin (Bld) [Mass/Vol] 13.2 g/dL 12 - 16 g/dL [place] Lymphocytes (Bld) [#/Vol] 1.50 10*3/uL [place] Lymphocytes/100 WBC (Bld) 25 % 24 - 44 % [place] MCH (RBC) [Entitic mass] 31.0 pg 26 - 34 pg [place] MCHC (RBC) [Mass/Vol] 33.9 g/dL 31 - 37 g/dL [place], [place] MCV (RBC) [Entitic vol] 91.3 fL 80 - 100 fL [place] Monocytes (Bld) [#/Vol] 0.40 10*3/uL [place] Monocytes/100 WBC (Bld) 7 % 1 - 7 % [place], [place] Platelet mean volume (Bld) [Entitic vol] 8.9 fL 6 - 12 fL [place] Platelets (Bld) [#/Vol] NOT REPORTED [place] Platelets (Bld) [#/Vol] 256 10*3/uL [place] RBC (Bld) [#/Vol] 4.27 10*6/uL 4 - 5.2 m/uL [place], [place] RBC morphology finding Nom (Bld) NOT REPORTED [place] Segmented neutrophils/100 WBC (Bld) 64 % 36 - 66 % [place] Segs Absolute 4.00 [place] WBC (Bld) [#/Vol] NOT REPORTED per 100 WBC [place] WBC (Bld) [#/Vol] 6.2 10*3/uL [place] WBC Morphology NOT REPORTED [place] CBC with Diffon 02-10-2020 Abs. Basophil 0.00 k/uL Normal 0.0-0.[address] [facility] Comment on above: Performed By: #### C DP #### [facility] [address] [place] [address] Drip Molder: Aries Ferguson DO Abs.Neutrophil (Seg) 4.00 k/uL Normal 1.3-9.1 [facility] Comment on above: Performed By: #### C DP #### [facility] [address] [place] [address] Drip Molder: Aries Ferguson DO Basophils/100 WBC (Bld) 1 % Normal 0-2 [facility] Comment on above: Performed By: #### C DP #### [facility] [address] [place] [address] Drip Molder: Aries Ferguson DO Eosinophils (Bld) [#/Vol] 0.20 10*3/uL Normal 0.0-0.[address] [facility] Comment on above: Performed By: #### C DP #### [facility] [place] [address] Drip Molder: Aries Ferguson DO Eosinophils/100 WBC (Bld) 3 % Normal 0-[address] [facility] Comment on above: Performed By: #### C DP #### [facility] [place] [address] Drip Molder: Aries Ferguson DO Erythrocyte distribution width (RBC) [Ratio] 13.7 % Normal 11.5-14.[address] [facility] Comment on above: Performed By: #### C DP #### [facility] [place] [address] Drip Molder: Aries Ferguson DO Hematocrit (Bld) [Volume fraction] 39.0 % Normal 36-[address] [facility] Comment on above: Performed By: #### C DP #### [facility] [place] [address] Drip Molder: Aries Ferguson DO Hemoglobin (Bld) [Mass/Vol] 13.2 g/dL Normal 12.0-16.[address] [facility] Comment on above: Performed By: #### C DP #### [facility] [place] [address] Drip Molder: Aries Ferguson DO Lymphocytes (Bld) [#/Vol] 1.50 10*3/uL Normal 1.0-4.[address] [facility] Comment on above: Performed By: #### C DP #### [facility] [address] [place] [address] Drip Molder: Aries Ferguson DO Lymphocytes/100 WBC (Bld) 25 % Normal 24-[address] [facility] Comment on above: Performed By: #### C DP #### [facility] [address] [place] [address] Drip Molder: Aries Ferguson DO MCH (RBC) [Entitic mass] 31.0 pg Normal 26-[address] [facility] Comment on above: Performed By: #### C DP #### [facility] [address] [place] [address] Drip Molder: Aries Ferguson DO MCHC (RBC) [Mass/Vol] 33.9 g/dL Normal 31-37 [facility] Comment on above: Performed By: #### C DP #### [address] [address] Drip Molder: Aries Ferguson DO MCV (RBC) [Entitic vol] 91.3 fL Normal 80-100 [facility] Comment on above: Performed By: #### C DP #### [facility] [address] [place] [address] Drip Molder: Aries Ferguson DO Monocytes (Bld) [#/Vol] 0.40 10*3/uL Normal 0.1-1.[address] [facility] Comment on above: Performed By: #### C DP #### [facility] [address] [place] [address] [place] [address] Drip Molder: Aries Ferguson DO Monocytes/100 WBC (Bld) 7 % Normal 1-7 [facility] Comment on above: Performed By: #### C DP #### [facility] [address] [place] [address] Drip Molder: Aries Ferguson DO Neutrophil (Seg) 64 % Normal 36-66 [facility] Comment on above: Performed By: #### C DP #### [facility] [address] [place] [address] Drip Molder: Aries Ferguson DO Platelet mean volume (Bld) [Entitic vol] 8.9 fL Normal 6.0-12.[address] [facility] Comment on above: Performed By: #### C DP #### [facility] [place] [address] Drip Molder: Aries Ferguson DO Platelets (Bld) [#/Vol] 256 10*3/uL Normal 150-[address] [facility] Comment on above: Performed By: #### C DP #### [facility] [place] [facility] [place] [address] Drip Molder: Aries Ferguson DO RBC (Bld) [#/Vol] 4.27 10*6/uL Normal 4.0-5.[address] [facility] Comment on above: Performed By: #### C DP #### [facility] [place] [address] Drip Molder: Aries Ferguson DO WBC (Bld) [#/Vol] 6.2 10*3/uL Normal 3.5-11.[address] [facility] Comment on above: Performed By: #### C DP #### [facility] [place] [address] Drip Molder: Aries Ferguson DO Abs.Imm.Granulocyte NOT REPORTED Normal 0.00-0.30 [facility] Comment on above: Performed By: #### C DP #### [facility] [address] [place] [address] Drip Molder: Aries Ferguson DO Auto Diff Performed NOT REPORTED Normal [facility] Comment on above: Performed By: #### C DP #### [facility] [place] [address] Drip Molder: Aries Ferguson DO Immature granulocytes (Bld) [#/Vol] NOT REPORTED Normal [address] [facility] Comment on above: Performed By: #### C DP #### [facility] [address] [place] [address] Drip Molder: Aries Ferguson DO NRBC Automated NOT REPORTED Normal [facility] Comment on above: Performed By: #### C DP #### [facility] [place] [address] Drip Molder: Aries Ferguson DO Platelets (Bld) [#/Vol] NOT REPORTED Normal [facility] Comment on above: Performed By: #### C DP #### [facility] [address] [place] [address] Drip Molder: Aries Ferguson DO RBC morphology finding Nom (Bld) NOT REPORTED Normal [facility] Comment on above: Performed By: #### C DP #### [facility] [address] [place] [address] Drip Molder: Aries Ferguson DO WBC Morphology NOT REPORTED Normal [facility] Comment on above: Performed By: #### C DP #### [facility] [address] [place] [address]. [place] [address] Drip Molder: Aries Ferguson DO Lan 02-10-2020 Immature granulocytes (Bld) [#/Vol] NOT REPORTED [facility] [place], [place] CT IAC POSTERIOR FOSSA WO CO NTRASTon 01-21-2020 CT IAC POSTERIOR FOSSA WO CONTRAST EXAMINATION: CT OF THE INTERNAL AUDITORY CANAL WITHOUT CONTRAST 01/21/2020 9:26 am: TECHNIQUE: CT of the internal auditory canal was performed without contrast was performed without the administration of intravenous contrast. Multiplanar reformatted images are provided for review. Dose modulation, iterative reconstruction, and/or weight based adjustment of the mA/kV was utilized to reduce the radiation dose to as low as reasonably achievable. COMPARISON: 12/23/2013. HISTORY: ORDERING SYSTEM PROVIDED HISTORY: Central perforation of tympanic membrane, right ear TECHNOLOGIST PROVIDED HISTORY: Is the patient ?->No Reason for Exam: pt states she has a history of cyst near or behind ear drum. last surgery on this was in 2014 Acuity: Chronic Type of Exam: Ongoing FINDINGS: RIGHT TEMPORAL BONE: The right external auditory canal is patent. There is a circular calcification along the posterior tympanic membrane wall. There is an area of perforation along the tympanic membrane. Soft tissue is noted in the middle ear. The ossicles are absent. There is a right mastoid effusion. There is thinning of the tegmen tympani with questionable areas of cortical dehiscence along the roof of the mastoid air cells. 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 The facial canal is unremarkable. The vestibule, vestibular aqueduct, and cochlea are unremarkable. The IAC is normal in appearance. The carotid canal and jugular bulb are unremarkable. LEFT TEMPORAL BONE: The left external auditory canal, tympanic membrane, ossicles, middle ear, mastoid air cells are clear. The cochlea, vestibule, vestibular aqueduct, and semicircular canals are normal in appearance. The carotid canal and jugular bulb are unremarkable. BRAIN: Limited images through the cerebral and cerebellar parenchyma are unremarkable. ORBITS: The visualized portion of the orbits demonstrate no acute abnormality. SINUSES: The paranasal sinuses are normal in appearance. IMPRESSION: 1. The right tympanic membrane is perforated with areas of thickening and calcification along the posterior right tympanic membrane wall. 2. Thickened secretions are noted in the middle ear and mastoid air cells, concerning for cholesteatoma recurrence. The right ossicles are absent, unchanged. 3. 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 Interpreted by: Arnold Valiente MD Signed by: Arnold Valiente MD 01/21/20 Final result Normal [facility] HPV DNA High Riskon 11-17-19 20 HPV Interp [facility] Comment on above: Result Comment: This test amplifies and detects DNA of 14 high-risk HPV types associated with cervical cancer and its precursor lesions (HPV types 16,18, 31, 33, 35, 39, 45, 51, 52, 56, 58, 59, 66, and 68). Sensitivity may be affected by specimen collection methods, stage of infection, and the presence of interfering substances. Results should be interpreted in conjunction with other available laboratory and clinical data. A negative high-risk HPV result does not exclude the possibility of future cytologic HSIL or underlying CIN2-3 or cancer. This test is intended for medical purposes only and is not valid for the evaluation of suspected sexual abuse or for other forensic purposes. Performed By: #### H PVH #### [facility] [email or web address] [address] [place] [address] Drip Molder: Kane Lawson MD HPV Type 16 Not Detected [facility] Comment on above: Performed By: #### H PVH #### [address] [address] Drip Molder: Kane Lawson MD HPV Type 18 Not Detected [facility] Comment on above: Performed By: #### H PVH #### [facility] [email or web address] [address] [place] [address] Drip Molder: Kane Lawson MD Other High Risk HPV Not Detected [facility] Comment on above: Performed By: #### H PVH #### [facility] [email or web address] [address] [place] [address] Drip Molder: Kane Lawson MD HPV DNA High Riskon 11-14-19 20 HPV Sample .THIN PREP [facility] Comment on above: Performed By: #### H PVH #### [facility] [email or web address] [address] [place] [address] Drip Molder: Kane Lawson MD Source .CERVIX Normal [facility] Comment on above: Performed By: #### H PVH #### [facility] [address] [place] [address] Drip Molder: Kane Lawson MD Cytologyon 11-04-2019 Cytology (NOTE) INTERPRETATION Cervical material, (ThinPrep vial, Imaging-assisted review): Specimen Adequacy: Satisfactory for evaluation. - Endocervical/transform ation zone component present. Descriptive Diagnosis: Atypical squamous cells of undetermined significance (ASC-US). Comments: High Risk HPV testing was ordered. Lard Refiner: MARTIN Vora M.D. Electronically Signed Out marky/11/12/2019 Procedure/Addendum HPV Procedure Report Date Ordered: 2019 Status: Signed Out Date Complete: 2019 By: ALEKSANDRA Schultz(ASCP) Date Reported: 11/17/2019 INTERPRETATION Martita HPV DNA High Risk HPV Sample Thin Prep (Ref Range) HPV Type 16 Not Detected (Not Detected) HPV Type 18 Not Detected (Not Detected) Other High Risk HPV Not Detected (Not Detected) This test amplifies and detects DNA of 14 high-risk HPV types associated with cervical cancer and its precursor lesions (HPV types 16, 18, 31, 33, 35, 39, 45, 51, 52, 56, 58, 59, 66, and 68). Sensitivity may be affected by specimen collection methods, stage of infection, and the presence of interfering substances. Results should be interpreted in conjunction with other available laboratory and clinical data. A negative high-risk HPV result does not exclude the possibility of future cytologic HSIL or underlying CIN2-3 or cancer. This test is intended for medical purposes only and is not valid for the evaluation of suspected sexual abuse or for other forensic purposes. 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 High Risk HPV DNA testing is requested if the diagnosis is ASC-US LMP: 10/20/2019 GYNECOLOGIC CYTOLOGY REPORT Patient Name: MARILOU RED Med Rec: [id number] Path Number: [id number] [facility] ANATOMIC PATHOLOGY [address] [place] [id number] Normal [facility] Comment on above: Performed By: #### P PPVP #### [employer] [facility] [employer] [address] [place] [address] Drip Molder: Kane Lawson MD Hep B Surf Abon 03-25-2018 Hep B Surf Ab 134.10 mIU/mL High <10 [facility] Comment on above: Result Comment: REFE RENCE RANGE:<10.0 NON-REACTIVE/NOT IMMUNE>=10.0 REACTIVE/IMMUNEThe presence of Anti-HBs usually indicates recovery from acute or chronic HBV infection or acquired immunity from HBV vaccination.Positive results (quantitative levels of equal to or greater than 10.0 mIU/mL) indicate an adequate immunity from previous infection, vaccination or immune globulin adminstration.Anti-HBc would help define positivity due to Hepatitis B infection. Performed By: #### A HBS ####[facility] [employer] [place] [address] Vital Signs Date Time Vital Sign Value Performing Clinician Facility 09-14-2021 09:45-0400 Body height 172.09 cm Maldonado Ulloa Other [facility] Other 09-14-2021 09:45-0400 Body mass index (BMI) [Ratio] 32.97 kg/m2 Maldonado Ulloa Other [facility] Other 09-14-2021 09:45-0400 Body weight 97.66 kg Maldonado Ulloa Other [facility] Other 09-14-2021 09:45-0400 Diastolic blood pressure 75 mm[Hg] Maldonado Ulloa Other [facility] Other 09-14-2021 09:45-0400 Respiratory rate 18 /min Maldonado Ulloa Other [facility] Other 09-14-2021 09:45-0400 SaO2% (BldA) [Mass fraction] 100 % Maldonado Ulloa Other [facility] Other 09-14-2021 09:45-0400 Systolic blood pressure 97 mm[Hg] Maldonado Ulloa Other [facility] Other 08-12-2021 09:30-0400 Body height 172.09 cm Jenna Scally Other [facility] Other 08-12-2021 09:30-0400 Body mass index (BMI) [Ratio] 33.4 kg/m2 Jenna Scally Other [facility] Other 08-12-2021 09:30-0400 Body weight 98.93 kg Jenna Scally Other [facility] Other 08-12-2021 09:30-0400 Diastolic blood pressure 85 mm[Hg] Jenna Scally Other [facility] Other 08-12-2021 09:30-0400 Respiratory rate 18 /min Jenna Scally Other [facility] Other 08-12-2021 09:30-0400 SaO2% (BldA) [Mass fraction] 100 % Jenna Scally Other [facility] Other 08-12-2021 09:30-0400 Systolic blood pressure 106 mm[Hg] Jenna Scally Other [facility] Other 06-01-2021 09:45-0500 Body height 172.09 cm Maldonado Laila Other [facility] Other 06-01-2021 09:45-0500 Body mass index (BMI) [Ratio] 33.59 kg/m2 Maldonado Laila Other [facility] Other 06-01-2021 09:45-0500 Body weight 99.47 kg Maldonado Morochodiff Other [facility] Other 06-01-2021 09:45-0500 Diastolic blood pressure 77 mm[Hg] Maldonado Ulloa Other [facility] Other 06-01-2021 09:45-0500 Respiratory rate 18 /min Maldonado Ulloa Other [facility] Other 06-01-2021 09:45-0500 SaO2% (BldA) [Mass fraction] 100 % Maldonado Ulloa Other [facility] Other 06-01-2021 09:45-0500 Systolic blood pressure 111 mm[Hg] Maldonado Ulloa Other [facility] Other 04-20-2021 09:45-0500 Body height 172.09 cm Maldonado Ulloa Jr. Other [facility] Other 04-20-2021 09:45-0500 Body mass index (BMI) [Ratio] 33.48 kg/m2 Maldonado Ulloa Jr. Other [facility] Other 04-20-2021 09:45-0500 Body weight 99.16 kg Maldonado Ulloa . Other [facility] Other 04-20-2021 09:45-0500 Diastolic blood pressure 77 mm[Hg] Maldonado Ulloa Jr. Other [facility] Other 04-20-2021 09:45-0500 Respiratory rate 18 /min Maldonado Ulloa . Other [facility] Other 04-20-2021 09:45-0500 SaO2% (BldA) [Mass fraction] 100 % Maldonado Galvanedie Mccoy. Other [facility] Other 04-20-2021 09:45-0500 Systolic blood pressure 105 mm[Hg] Maldonado Ulloa . Other [facility] Other 02-23-2021 09:15-0400 Body height 172.09 cm Maldonado Ulloa . Other [facility] Other 02-23-2021 09:15-0400 Body mass index (BMI) [Ratio] 35.46 kg/m2 Maldonado Ulloa . Other [facility] Other 02-23-2021 09:15-0400 Body weight 105.01 kg Maldonado Ulloa . Other [facility] Other 02-23-2021 09:15-0400 Diastolic blood pressure 74 mm[Hg] Maldonado Ulloa . Other [facility] Other 02-23-2021 09:15-0400 Respiratory rate 18 /min Maldonado Ulloa . Other [facility] Other 02-23-2021 09:15-0400 SaO2% (BldA) [Mass fraction] 99 % Maldonado Ulloa Jr. Other [facility] Other 02-23-2021 09:15-0400 Systolic blood pressure 108 mm[Hg] Maldonado Ulloa Jr. Other [facility] Other 02-17-2020 16:30-0400 BP Diastolic 67 mm[Hg] [facility] [place] [facility] [place] 02-17-2020 16:30-0400 BP Systolic 126 mm[Hg] Rayray [facility] [place] , [place] 02-17-2020 16:20-0400 Body Temperature 97.11 [degF] [facility] [place] 02-17-2020 16:20-0400 Pulse (Heart Rate) 68 /min [facility], [place] 02-17-2020 16:20-0400 Pulse Oximetry 100 % [facility]- [place] , [place] 02-17-2020 16:20-0400 Respiratory Rate 16 /min [facility] 02-17-2020 12:10-0400 BMI (Body Mass Index) 35.55 kg/m2 [facility] [place], [place] 02-17-2020 12:10-0400 Body weight 102.97 kg [facility] , [place] 02-17-2020 12:10-0400 Height 170.2 cm [facility]- [place] , [place] 02-10-2020 08:06-0400 BMI (Body Mass Index) 35.62 kg/m2 St 1 [facility]- [place], [place] 02-10-2020 08:06-0400 Body Temperature 97.81 [degF] [facility] [place] 02-10-2020 08:06-0400 Body weight 103.15 kg [facility]- [place] , [place] 02-10-2020 08:06-0400 BP Diastolic 77 mm[Hg] [facility] [place] , [place] 02-10-2020 08:06-0400 BP Systolic 109 mm[Hg] [facility] [place] , [place] 02-10-2020 08:06-0400 Height 170.2 cm [facility] [place] , [place] 02-10-2020 08:06-0400 Pulse (Heart Rate) 79 /min [facility], [place] 02-10-2020 08:06-0400 Pulse Oximetry 100 % [facility] , [place] 02-10-2020 08:06-0400 Respiratory Rate 12 /min [facility] [place] Encounters Encounter Date Encounter Type Care Provider Facility Start: 08-23-2022 End: 08-24-2022 ambulatory YVONNE LARA MD Facility:[id number] Start: 08-14-2022 End: 08-14-2022 ambulatory Referral Self Facility:[facility] Start: 08-11-2022 End: 08-12-2022 ambulatory [facility] Start: 08-11-2022 End: 08-11-2022 Subsequent hospital visit by physician Anahi Murillo APRN - DISPOSAL OPERATOR Work Phone: [facility] Comment on above: 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 Start: 07-05-2022 End: 07-05-2022 ambulatory Anahi Murillo Facility:[facility] Start: 07-05-2022 End: 07-05-2022 ambulatory INDIA Murillo Work Phone: [facility] Work Phone: Start: 07-05-2022 End: 07-05-2022 Patient encounter procedure INDIA Murillo Work Phone: [facility] [place] Work Phone: Start: 12-14-2021 End: 12-15-2021 ambulatory SALVATORE [facility] Start: 12-14-2021 Encounter for gynecological examination (general) (routine) without abnormal findings [facility] Start: 12-14-2021 End: 12-14-2021 Patient encounter procedure Anahi Murillo RESOLUTION MANAGER - DISPOSAL OPERATOR Work Phone: [facility] Start: 12-14-2021 End: 12-14-2021 Subsequent hospital visit by physician Anahi Murillo RESOLUTION MANAGER - DISPOSAL OPERATOR Work Phone: [facility] Comment on above: Women's annual routi ne gynecological examination Start: 09-14-2021 End: 09-15-2021 ambulatory Jenna Gee [facility] Other Start: 09-14-2021 Follow-up encounter Maldonado guerrero [facility] Start: 08-12-2021 (FCCCWMNF/U) Weight Management f/u Jenna Olson [facility] Start: 08-12-2021 End: 08-12-2021 ambulatory Jenna Olson Other [facility] Other Start: 08-09-2021 End: 08-09-2021 ambulatory Maldonado Ulloa Other [facility] Other Start: 08-09-2021 Telephone encounter Maldonado guerrero [facility] Start: 07-04-2021 End: 07-04-2021 ambulatory Maldonado Ulloa Other [facility] Other Start: 07-04-2021 Telephone encounter Maldonado guerrero [facility] Start: 06-20-2021 End: 06-20-2021 ambulatory Elva Martins Other [facility] Other Start: 06-20-2021 Telephone encounter Elva lam [facility] Start: 06-01-2021 End: 06-01-2021 ambulatory Maldonado Ulloa Other [facility] Other Start: 06-01-2021 Follow-up encounter Maldonado guerrero [facility] Start: 04-20-2021 End: 04-20-2021 ambulatory Maldonado Ulloa Jr. Other [facility] Other Start: 04-20-2021 Follow-up encounter Maldonado jiménez [facility] Start: 03-29-2021 End: 03-29-2021 ambulatory Elva Martins Other [facility] Other Start: 03-29-2021 Telephone encounter Elva Martins [facility] Start: 03-07-2021 Telephone encounter Maldonado jiménez [facility] Start: 02-23-2021 Follow-up encounter Maldonado jiménez [facility] Start: 12-02-2020 End: 12-02-2020 Subsequent hospital visit by physician Anahi Quigley CNP Work Phone: [facility] Comment on above: 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 Start: 06-07-2020 End: 06-07-2020 Subsequent hospital visit [facility] Comment on above: Vulval lesion; LGSIL on Pap smear of cervix Start: 05-03-2020 End: 05-03-2020 Subsequent hospital visit by physician [facility] Comment on above: ASCUS of cervix with negative high risk HPV Start: 02-17-2020 End: 02-17-2020 Patient encounter procedure [facility] Start: 02-17-2020 End: 02-17-2020 Subsequent hospital visit by physician Rayray Hart Work Phone: [facility] Start: 02-13-2020 End: 02-13-2020 Subsequent hospital visit by physician Ronni Covid Screening Schedule [facility] Covid Screening Comment on above: Preop testing Start: 02-10-2020 End: 02-15-2020 Patient encounter procedure [facility] Start: 02-10-2020 End: 02-14-2020 Subsequent hospital visit by physician Jermaine Pat 1 [facility]-Admit [facility] Start: 01-21-2020 End: 01-24-2020 Patient encounter procedure RAYRAY ADAPPA [facility] Start: 11-04-2019 End: 11-05-2019 [facility] Start: 11-04-2019 End: 11-04-2019 Subsequent hospital visit by physician Mateusz Burnett [facility] Comment on above: Women's annual routi ne gynecological examination Start: 03-25-2018 End: 03-26-2018 Patient encounter procedure MARU CHEYANNE [facility] Procedures Date Procedure Procedure Detail Performing Clinician Start: 12-14-2021 Microscopic observat ion [Identifier] in Cervix by Cyto stain Anahi Murillo RESOLUTION MANAGER - DISPOSAL OPERATOR Work Phone: Start: 12-02-2020 Microscopic observat ion [Identifier] in Cervix by Cyto stain Anahi Murillo RESOLUTION MANAGER - DISPOSAL OPERATOR Work Phone: Start: 02-17-2020 DISCHARGE PATIENT RAYRAY ADAPPA Start: 02-17-2020 Level iv surg pathol ogy gross&microscopic exam RAYRAY ADAPPA Start: 02-17-2020 BEDREST RAYRAY ADAP PA Start: 02-17-2020 Continuous pulse oximetry RAYRAY ADAPPA Start: 02-17-2020 ENCOURAGE DEEP BREAT GENI AND COUGHING RAYRAY ADAPPA Start: 02-17-2020 NURSING COMMUNICATION V IJAY ADAPPA Start: 02-17-2020 Urine test visual color cmprsn meths RAYRAY ADAPPA Start: 02-17-2020 INITIATE OXYGEN THER APY PROTOCOL RAYRAY ADAPPA Start: 02-17-2020 NOTIFY PHYSICIAN (SPECIFY) RAYRAY ADAPPA Start: 02-17-2020 VITAL SIGNS RAYRAY ADAP PA Start: 02-17-2020 Urine test visual color cmprsn meths Rayray Adappa Work Phone: Start: 02-10-2020 Blood count complete auto&auto difrntl wbc RAYRAY ADAPPA Start: 02-10-2020 Blood count complete auto&auto difrntl wbc [place] [facility] Work Phone: Start: 01-21-2020 Ct orbit sella/post fossa/ear w/o contrast matrl RAYRAY ADAPPA Start: 11-04-2019 Screen pap by renard clemente md [facility] Start: 03-25-2018 HEPATITIS B SURFACE ANTIBODY MARU EDWARD Plan of Treatment Date Care Activity Detail Author Start: 03-21-2028 DTaP/Tdap/Td vaccine (2 - Td or Tdap) DTaP/Tdap/Td vaccine (2 - Td or Tdap) [facility] Start: 03-21-2028 DTaP/Tdap/Td vaccine (2 - Td) DTaP/Tdap/Td vaccine (2 - Td) [place] Start: 12-14-2026 Screening for malign ant neoplasm of cervix [facility] Start: 12-03-2025 Screening for malign ant neoplasm of cervix [facility] Start: 05-03-2025 Screening for malign ant neoplasm of cervix Cervical cancer screen [place] Start: 12-14-2024 Screening for malign ant neoplasm of cervix Pap smear [facility] Start: 11-03-2024 Screening for malign ant neoplasm of cervix Cervical cancer screen [place] Start: 12-03-2023 Screening for malign ant neoplasm of cervix Pap smear [facility] Start: 04-30-2023 Screening for malign ant neoplasm of cervix Cervical cancer screen [place] Start: 08-22-2022 Lipid panel Lipids [facility] Start: 01-26-2022 Influenza vaccination Flu vaccine (# 1) [facility] Start: 12-26-2021 Influenza vaccination Flu vaccine (# 1) [facility] Start: 07-09-2021 COVID-19 Vaccine (4 - Booster for Moderna series) COVID-19 Vaccine (4 - Booster for Moderna series) [facility] Start: 06-07-2021 Depression Screen Depression Screen [facility] Start: 01-26-2021 Influenza vaccination Flu vaccine (# 1) [facility] Work Phone: Start: 07-26-2020 End: 07-26-2020 Office Visit 07/26/2020 Office Visit Obstetrics and Gynecology Salvatore Li MD [address] [place] [address] [phone] [facility] OBSTETRICS & [facility]YNECOLOGY Start: 05-03-2020 End: 05-03-2020 Office Visit 05/03/2020 Office Visit Obstetrics and Gynecology Salvatore Li MD [address] [place] [address] [phone] [facility] OBSTETRICS & [facility]YNECOLOGY Start: 02-17-2020 End: 02-17-2020 Hospital Encounter [facility] Comment on above: REMOVAL CHOLESTEATOM A Start: 01-27-2020 Influenza vaccination [place] Start: 12-02-2019 End: 12-02-2019 Office Visit 12/02/2019 Office Visit Obstetrics and Gynecology Salvatore Li MD [address] [place] [address] [phone] [facility] LIFE SKILLS SPECIALIST Start: 2016 Diabetes screen Diabetes screen [facility] Start: 2000 DTaP/Tdap/Td vaccine (1 - Tdap) DTaP/Tdap/Td vaccine (1 - Tdap) [place] Start: 11-14-1999 Hepatitis C screening Hepatitis C sc reen [facility] Start: 1993 Depression Screen Depression Screen [facility] Start: 1982 Varicella vaccine (1 of 2 - 2-dose childhood series) Varicella vaccine (1 of 2 - 2-dose childhood series) [facility] Start: 05-15-1982 COVID-19 Vaccine (#1) COVID-19 Vacci ne (#1) [facility] Start: 1981 Hepatitis C screening Hepatitis C sc reen [place] End: 02-13-2020 COVID-19 Ambulatory COVID-19 Ambulatory Lab Routine Preop testing 1 Occurrences starting 02/13/2020 until 02/13/2020 [place], [place] Comment on above: 1 Occurrences starti ng 02/13/2020 until 02/13/2020 COVID-19 Ambulatory COVID-19 Amb ulatory Lab Routine Preop testing 02/13/2020 7:21 AM EDT [place] End: 11-04-2019 Cytopathology procedure, preparation of smear, genital source PAP SMEAR Lab Routine Women's annual routine gynecological examination 1 [facility]ur[facility] starting 11/04/2019 until [facility]04[facility]: [facility] Occurrences starti ng 11/04/2019 until 11/04/2019 End: 05-03-2020 Cytopathology procedure, preparation of smear, genital source PAP SMEAR Lab Routine ASCUS of cervix with negative high risk HPV 1 Occurrences starting 05/03/2020 until 05/03/2020 [facility]: [facility] Occurrences starti ng 05/03/2020 until 05/03/2020 End: 12-02-2020 Cytopathology procedure, preparation of smear, genital source PAP SMEAR Lab Routine LGSIL on Pap smear of cervix 1 Occurrences starting 12/02/2020 until 12/02/2020 71lbs Phone: Comment on above: 1 Occurrences starti ng 12/02/2020 until 12/02/2020 End: 12-14-2021 Cytopathology procedure, preparation of smear, genital source PAP SMEAR Lab Routine Women's annual routine gynecological examination 1 Occurrences starting 12/14/2021 until 12/14/2021 [facility] Phone: Comment on above: 1 Occurrences starti ng 12/14/2021 until 12/14/2021 End: 08-11-2022 Cytopathology procedure, preparation of smear, genital source PAP SMEAR Lab Routine LGSIL on Pap smear of cervix 1 Occurrences starting 08/11/2022 until 08/11/2022 [employer] Phone: Comment on above: 1 Occurrences starti ng 08/11/2022 until 08/11/2022 Oxygen therapy [[facility] Data Set] Initiate Oxygen Therapy Protocol Respiratory Care Routine Daily until discontinued starting [facility]17[facility]2020 [facility]: Daily until disconti nued starting 02/17/2020 Phase I & II - meter ed glucose Phase I & II - metered glucose Point of Care Testing Routine As Needed until discontinued starting 02/17[facility]2020 [facility] above: As Needed until disc ontinued starting 02/17/2020 Surgical Pathology Surgical Path ology Lab Routine Release Upon Ordering for 1 Occurrences starting 02/17/2020 [place], [place] Comment on above: Release Upon Orderin g for 1 Occurrences starting 02/17/2020 End: 06-07-2020 Surgical Pathology [place] Comment on above: 1 Occurrences starti ng 06/07/2020 until 06/07/2020 Immunizations Immunization Date Immunization Notes Care Provider Fa chad 03-06-2017 Influenza Vaccine, unspecified formulation Mateusz [place], [place] 03-08-2016 Influenza Vaccine, unspecified formulation Mateusz [place] Payers Date Payer Category Payer Self-pay [id number] 2019 [employer] ( and others) [facility] xxxxxxxxxxx 2019-Present [id number] 2019 [employer] ( and others) [id number] 2019 [employer] ( and others) [id number] 2019 [employer] ( and others) [id number] 1980 Unknown [id number] .174 1980 Unknown [id number] .176 1980 Unknown [id number] 2.16.840.1.611460.3.579.2 .176 1980 Unknown [id number] 2.16.840.1.152089.3.579.2 .176 1980 Unknown [id number] 2.16.840.1.560593.3.579.2 .159 1980 Unknown [id number] 2.16.840.1.988270.3.579.2 .173 1980 Unknown [id number] [id number] .173 [employer] ( and others) [id number] Unknown Other1 (STD) [id number] Unknown [id number] [id number] .531 Unknown [id number] 2.16.840.1.258935.3.579.2 .531 Unknown [id number] [id number] .531 Social History Date Type Detail Facility Start: 01-22-2014 End: 11-04-2019 Tobacco smoking status [facility] Never smoker [facility] Start: 11-04-2019 End: 08-11-2022 Alcohol intake Current drinker of alcohol (finding) [place], [place] Start: 01-22-2014 Alcohol Comment [place], [place] Start: 1980 Sex Assigned At Not on file M [place], [place] Exposure to SARS-CoV-2 (event) Unable to assess [place] Start: 01-22-2014 End: 02-10-2020 Tobacco use and exposure Never used [place] Exposure to SARS-CoV-2 (event) Not sure [place] Sex Assigned At Sex Assigned At Bir th [facility] Other Start: 1980 Sex Assigned At Female F [facility] Clinical Notes 02-23-2021 to 09-14-2021 Note Date & Type Note Facility 09-14-2021 Evaluation note Encounter Date Diagnosis Assessment Notes Aug, Mixed hyperlipidemia (ICD-10 - E78.2) Aug, Obesity (BMI 30.0-34.9) (ICD-10 - E66.9) Aug, Vitamin D deficiency (ICD-10 - E55.9) Aug, Anxiety (ICD-10 - F41.9) Aug, Encounter for medication management (ICD-10 - Z79.899) [facility] Other 03-18-2022 Evaluation note* Encounter Date Diagnosis Assessment Notes Treatment Notes Treatment Clinical Notes Jul, Mixed hyperlipidemia (ICD-10 - E78.2) Discussed risks of elevated LDL. Encouraged intake of foods low in saturated fat as well as supplements (erum, fish oil). Discussed LDL contributing to insulin resistance and increase cardiovascular risk factors. Jul, Obesity (BMI 30.0-34.9) (ICD-10 - E66.9) Continue Qsymia for the treatment of obesity to help with both hunger and cravings. Medication information reviewed. OAARS reviewed did not reveal any compliance concerns. Patient continues to make good marylu effort toward weight management, and i feel appropriate for continuation.Poss ible side effects were reviewed. The mechanism of action of Qsymia was reviewed, which is combination therapy of phentermine plus Topiramate. The risks, benefits and side effects were reviewed; including but not limited to: Dry mouth, constipation, palpitations, fatigue or grogginess, kidney stones, paresthesias, potential visual memory changes and insomnia. The patient was also counseled on the potential for slight increase in blood pressure and heart rate which will be monitored monthly. The teratogenic risk for women was discussed as was the need for contraception. The patient denies any history of CAD, arrhythmias, stroke, uncontrolled hyperthyroidism, kidney stones, or glaucoma. Plan, purchase and prepare healthy foods. Use shopping list, electronic shopping to curb impulse buying. Stock pantry with healthy foods. Keep fruits and vegetables accessible. Avoid bringing unhealthy foods in to the home. Plan family meals minimally 3 x per week. Decrease screen time. Jul, Paresthesias (ICD-10 - R20.2) initally concern, now improved Jul, Anxiety (ICD-10 - F41.9) not worse Jul, Encounter for medication management (ICD-10 - Z79.899) Jul, Other I have spent 30 minutes with this patient and over 50% of the visit was counseling done by myself, Danielle TROTTER. [facility] Other 11-24-2021 Evaluation note* Encounter Date Diagnosis Assessment Notes Treatment Notes Treatment Clinical Notes Mar, Mixed hyperlipidemia (ICD-10 - E78.2) Mar, Obesity (BMI 30.0-34.9) (ICD-10 - E66.9) Mar, Anxiety (ICD-10 - F41.9) [facility] Other 09-29-2021 Evaluation note* Encounter Date Diagnosis Assessment Notes Treatment Notes Treatment Clinical Notes Jan, Mixed hyperlipidemia (ICD-10 - E78.2) Jan, Obesity (BMI 35.0-39.9 without comorbidity) (ICD-10 - E66.9) Jan, Anxiety (ICD-10 - F41.9) [facility] Other Evaluation note* Diagnosis LGSIL on Pap smear of cervix documented in this encounter 71lbs Phone: evaluxkutd noteNo [employer] Other Evaluation noteNortRefle[employer] Medical Other Evaluation note* Diagnosis Women's annual routine gynecological examination documented in this encounter [employer] Phone: evaluation noteNo assessment information available [facility] Work Phone: Evaluation note* Diagnosis LGSIL on Pap smear of cervix documented in this encounter [employer] Phone: History general Narrative - Reported* Type Description Date Medical History anxiety Surgical History Right Ear Surgery [facility] Other History general Narrative - ReportedNoSMB Suite Other Summary Purpose Family History No Family History Records FoundNo Family History Records FoundNo Family History Records FoundNo Family History Records FoundNo Family History Records FoundNo Family History Records Found Advance Directives No Advanced Directives Records FoundDocuments on File Type Date Recorded Patient Sap Portal Consultant Expl anation Advance Directives and Living Will Power of Material Assembler Documents on File Type Date Recorded Patient Sap Portal Consultant Expl anation ACP-Advance Directive ACP-Power of Material Assembler Documents on File Type Date Recorded Patient Sap Portal Consultant Expl anation ACP-Advance Directive ACP-Power of Material Assembler Advance Directive Response Recorded Date/ Time Advance Directives No July 29 2:55pm Assessments Diagnosis Women's annual routine gynecological examination Diagnosis Preop testing Preoperative examination, unspecified Diagnosis ASCUS of cervix with negative high risk HPV Diagnosis Vulval lesion Other specified noninflammatory disorder of vulva and perineum LGSIL on Pap smear of cervix Discharge Instructions * Instructions* Megan Cunningham RN - 02/10/2020 Pre-op Instructions For Out-Patient Surgery Medication Instructions: Please stop herbs and any supplements now (includes vitamins and minerals). Please contact your surgeon and prescribing physician for pre-op instructions for any blood thinners. If you have inhalers/aerosol treatments at home, please use them the morning of your surgery and bring the inhalers with you to the hospital. Please take the following medications the morning of your surgery with a sip of water: None. Surgery Instructions: 1. After midnight before surgery: Do not eat or drink anything, including water, mints, gum, and hard candy. You may brush your teeth without swallowing. No smoking, chewing tobacco, or street drugs. Please shower or bathe before surgery. 2. Please do not wear any cologne, lotion, powder, deodorant, jewelry, piercings, perfume, makeup, nail hungarian, hair accessories, or hair spray on the day of surgery. Wear loose comfortable clothing. 3. Leave your valuables at home. Bring a storage case for any glasses/contacts. 4. An adult who is responsible for you MUST drive you home and should be with you for the first 24 hours after surgery. The Day of Surgery: Arrive at [facility] Surgery Entrance at the time directed by your surgeon and check in at the desk. If you have a living will or healthcare power of trademark attorney, please bring a copy. You will be taken to the pre-op holding area where you will be prepared for surgery. A physical assessment will be performed by a nurse practitioner or warehouse operations manager. Your IV will be started and you will meet your anesthesiologist. We are currently limiting visitors to only one designated person in the pre-op holding area. When you go to surgery, your family will be directed to the surgical waiting room, where the doctor shouldspeak with them after your surgery. After surgery, you will be taken to the recovery room then when you are awake and stable you will go to the short stay unit for preparation to be discharged. Only your one designated person is allowed to come to short stay for your discharge. If you use a Bi-PAP or C-PAP machine, please bring it with you and leave it in the car in case it is needed in recovery room. documented in this encounter* Instructions* Suad Thomson RN - 02/17/2020 DISCHARGE INSTRUCTIONS FOR GENERAL ANESTHESIA In order to continue your care at home, please follow the instructions below. Anesthesia Do not drink any alcoholic beverages or make any legal or important decisions for 24 hours. If your surgery was on an extremity or abdomen, do not drive or operate any machinery until yoursurgeon approves, otherwise do not drive or operate any machinery for 24 hours or as restricted by your surgeon. Pain Medications Please do not drive, operate machinery, or drink alcoholic beverages while taking any prescribed pain medication. Diet - Start out eating lightly (broth, soup, crackers, toast, etc.) advancing as tolerated to yourusual diet. Try to avoid spicy and greasy/fatty foods for 24 hours. Drink plenty of fluids after surgery, unless you are on a fluid restriction. Avoid milk/milk product for several hours. Call your surgeon for the following: ? You have pain that does not get better after you take pain medicine. ? For an oral temperature (by mouth) is 101 degrees or higher, chills, or excessive sweating. ? You have increasing and progressive bleeding or drainage from surgery site. ? Signs of an infection: increased swelling, redness, warmth, or hardness around surgery area or yellow or green drainage. ? Persistent nausea or vomiting and can t keep fluids down. ? If you are unable to urinate within 8 hours of surgery. ? Redness or swelling at IV site. ? For any questions or concerns you may have. No water in the right ear. 7 eye pads today and change once a day for 3 days. Keep appointment in office for follow-up documented in this encounter History of Present Illness * Ester Stewart RN - 02/17/2020 12:09 PM EDT Urine test negative documented in this encounter Chief Complaint and Reason for Visit Chief Complaint R53.83 R53.81 Z00.00 Additional Source Comments INFORMATION SOURCE (unrecogn ized section and content) DATE CREATED AUTHOR 05/24/2018 [facility] DATE CREATED AUTHOR AUTHOR'S ORGANIZ ATION 12/13/2019 [facility] DATE CREATED AUTHOR AUTHOR'S ORGANIZ ATION 02/20/2020 [facility] DATE CREATED AUTHOR AUTHOR'S ORGANIZ ATION 08/26/2022 [facility] DATE CREATED AUTHOR AUTHOR'S ORGANIZ ATION 08/29/2022 [facility] DATE CREATED AUTHOR AUTHOR'S ORGANIZ ATION 08/30/2022 [facility] Reason for Visit (unrecogniz ed section and content) Status Reason Specialty Diagnoses / Procedures Referre d By Contact Referred To Contact Diagnoses 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 Procedures MT EXC SKIN BENIG <5MM FACE,FACIAL REMOVAL CHOLESTEATOMA Rayray Hart MD [address] [place] [address] [facility] Care Teams (unrecognized sec tion and content) Playground Worker Relationship Specialty Start Date End Date Anahi Murillo APRN - DISPOSAL OPERATOR [address] [place] [address] PCP - General Nurse Practitioner 12/02/20 Team Status: Inactive Member Role Status Dates Anahi Murillo APRN CHROME WORKER-C Primary Care Provider, Attending Provider Active Team Status: Active Member Role Status Dates Anahi Murillo APRN CHROME WORKER-C Primary Care Provider Active Playground Worker Relationship Specialty Start Date End Date Anahi Murillo APRN - DISPOSAL OPERATOR [address] [place] [address] PCP - General Nurse Practitioner 12/02/20 Goals (unrecognized section and content) Goals may be documented in a n alternate section FOR RECORDS PERTAINING TO PATIENTS WHO ARE OR HAVE BEEN ENROLLED IN A CHEMICAL DEPENDENCY/SUBSTANCEABUSE PROGRAM, SOME INFORMATION MAY BE OMITTED. This clinical summary was aggregated from multiple sources. Caution should be exercised in using it in the provision of clinical care. This summary normalizes information from multiple sources, and as a consequence, information in this document may materially change the coding, format and clinical context of patient data. In addition, data may be omitted in some cases. CLINICAL DECISIONS SHOULD BE BASED ON THE PRIMARY CLINICAL RECORDS. [facility] [employer] [facility]. provides no warranty or guarantee of the accuracy or completeness of information in this document.
== END 2023-06-06 13:18 | disposition home or self-care (01) ==
LOC: VC 13:18
PROVIDERS: Family Provider Family Medicine; PCP Radiology Diagnostic Radiology; Visit Provider Radiology Diagnostic Radiology
DX: I83.813 Varicose veins of bilateral lower extremities with pain (principal)
CPT/HCPCS: 93970; G0463

== ENCOUNTER 2023-07-30 12:46 | Outpatient (OUT) | payer OTHER, SELFPAY ==
--- NOTE | 2023-07-30 12:48 | VEIN_ITS ---
[address] [address] Patient Name: MARILOU COLÓN MRN: [id number] date: 1980 Sex: F Assigned Patient Location: Current Patient Location: Accession/Order Number: [id number] Exam Date: 07/30/2023 12:50 Report Date: 07/30/2023 13:44 At the request of: YVONNE RIDDLE Procedure: VC Endovenous Ablation 1VeinLT EXAMINATION: VC Endovenous Ablation 1Vein Left small saphenous vein HISTORY: Pain due to varicose veins of bilateral legs I83.813 COMPARISON: No relevant comparison available. TECHNIQUE: The risks and benefits of the procedure had been previously discussed, and were rediscussed at length. Informed written consent was obtained. Dalia Ireland and Per Atwood assisted. Time out procedure was performed. The left lower extremity was prepared and draped in the usual sterile fashion to allow knee flexion in the sterile field. Duplex ultrasound probe was draped in a sterile cover, sterile transmission gel was used. Venous mapping was performed with the areas of dilation and large tributaries marked. The total length was 27 cm from the entry 4 cm above the lateral malleolus to where the vein begins to dive into the muscle fascia. The diameter of the small saphenous vein ranged from 4-6 mm. A 30 gauge needle and 1% buffered lidocaine was used to anesthetize the entry site. A 4 mm incision was made with a scalpel and the saphenous vein was entered percutaneously under direct ultrasound guidance with a micropuncture set, a single stick was successful in gaining access. A micro-guide wire was inserted and the needle removed. A micro-set including a dilator was inserted over the microwire and the needle and dilator were removed. A 0.018 guide wire was inserted through the micro-set and threaded through the saphenous vein to the saphenofemoral junction. The dilator was removed and an introducer sheath was inserted over the wire until the end of the sheath entered the saphenofemoral junction. The dilator and wire were removed and the 600 micron fiber was introduced and placed and positioned so that it extended beyond the sheath and was 3 cm peripheral to the saphenofemoral femoral junction. Final position of the fiber was determined by ultrasound guidance and duplex imaging. Tumescent anesthetic was delivered by ultrasound guidance. 75 cc of fluid was delivered along the entire course of the saphenous vein. The solution consisted of 1000 cc of normal saline with 40 mL of 1% lidocaine and 20 mL of sodium bicarbonate. A final positioning check was made. The energy source was turned on by means of the foot pedal and the fiber and sheath were withdrawn. The total number of Joules delivered was 1281. The laser was active for 160 seconds under continuous pulse, average laser use of 8 J. Laser start time 13:13 07/30/23 . Laser stop time 13:26 07/30/23 . A duplex ultrasound revealed compressibility and flow at the saphenofemoral junction immediately after the procedure. Hemostasis at the access site was achieved. The skin incision of the saphenous vein was closed with a 4 x 4. A compression stocking was applied. Postop instructions were given. A follow up appointment was recommended and scheduled. The patient tolerated the procedure well and was discharged in good condition . VEIN/VC Endovenous Ablation 1VeinLT IMPRESSION: Technically successful endovenous laser ablation left small saphenous vein Electronically authenticated by: YVONNE RIDDLE Date: 07/30/2023 13:44
--- OUTSIDE RECORDS SUMMARY | 2023-07-30 12:59 | XMS_ITS | CCD ---
Author Name Unknown Address [address] [place] [address] Organization [facility] Care Team Providers [employer] Name Role Phone MARU EDWARD Unavailable Unavailable DELMI BURNETT Unavailable Unavailable Delmi Burnett Primary Care Provider [phone] ISMAEL LI Referring Unavailable DELMI BURNETT Primary Care Unavailable Delmi Burnett Primary Care Provider ADAPPA, RAYRAY Referring Unavailable DELMI BURNETT Primary Care Unavailable ADAPPA, RAYRAY Referring Unavailable DELMI BURNETT Primary Care Unavailable ADAPPA, RAYRAY Admitting Unavailable ADAPPA, RAYRAY Attending Unavailable DELMI BURNETT Primary Care Unavailable Michael EMBALMER APPRENTICE - VETERINARY PHYSIOLOGIST, Glenys Ofelia Primary Care Pr ovider Maldonado Ulloa Jr. Unavailable Elva Martins Unavailable Maldonado Ulloa Unavailable Jenna Olson Unavailable Michael EMBALMER APPRENTICE - VETERINARY PHYSIOLOGIST, Glenys Ofelia Primary Care Pr ovider INDIA Murillo Primary Care Provider INDIA Murillo Attending Provider [phone] Michael EMBALMER APPRENTICE - VETERINARY PHYSIOLOGIST, Glenys Ofelia Primary Care Pr ovider YVONNE LARA MD Attending Unavailable MICHAEL GLENYS OFELIA Primary Care UnavailISMAEL Moraes Referring Unavailable ISMAEL LI Referring Unavailable GLENYS MURILLO Primary Care UnavailMD Delmi Abad Primary Care Provider MD Delmi Burnett Attending Provider Delmi Burnett Primary Care Unavailable Delmi Burnett Attending Unavailable Delmi Burnett Admitting Unavailable Michael Glenyssujey Gilbert Primary Care Unavailabl e Self, Referral Admitting Unavailable Self, Referral Attending Unavailable Medications Current Medications Medication Drug Class(es) Dates [...] 02-23-2021 Resolved: 09-14-2021 Chronic Cancer of cervix (5 sources) Low grade squamous intraepithelial lesion on cervical Papanicolaou smear; Translations: [Low grade squamous intraepithelial lesion on cytologic smear of cervix (LGSIL)] Onset: 08-11-2022 Episodic Disorders of lipid metabolism (16 sources) Mixed hyperlipidemia; Translations: [Mixed hyperlipidemia] Onset: 02-23-2021 Resolved: 09-14-2021 Chronic Malaise and fatigue (1 source) Other fatigue; Translations: [Other fatigue] Onset: 07-12-2023 Episodic Nutritional deficiencies (2 sources) Vitamin D [...] for malignant neoplasm of breast] Onset: 08-14-2022 Past or Other Problems Problem Classification Problem Date Documented Da te Episodic/Chronic Other aftercare (3 sources) Other shelter (current) drug therapy Onset: 06-01-2021 Resolved: 09-14-2021 Episodic Other nervous system disorders (2 sources) Paresthesia of skin Onset: 06-01-2021 Resolved: 08-12-2021 Episodic Results Test Name Value Interpretation Reference Range Facility Alanine aminotransferase [En zymatic activity/volume] in Serum or PlasmaOrdered By: Delmi Burnett on 07-12-2023 ALT [Catalytic activity/Vol] 14 U/L 7-52 [facility] Albumin [Mass/volume] in Ser um or Plasma by Bromocresol green (BCG) dye binding methoOrdered By: Delmi Burnett on 07-12-2023 Albumin BCG dye [Mass/Vol] 4.2 g/dL 3.5-5.7 [facility] Alkaline phosphatase [Enzyma tic activity/volume] in Serum or PlasmaOrdered By: Delmi Burnett on 07-12-2023 ALP [Catalytic activity/Vol] 68 U/L 34-104 [facility] Aspartate aminotransferase [ Enzymatic activity/volume] in Serum or PlasmaOrdered By: Delmi Burnett on 07-12-2023 AST [Catalytic activity/Vol] 17 U/L 13-39 [facility] Basophils Auto (Bld) [#/Vol] Ordered By: Delmi Burnett on 07-12-2023 Basophils (Bld) [#/Vol] 0.1 10*3/uL 0.0-0.2 [facility] Basophils/100 WBC Auto (Bld) Ordered By: Delmi Burnett on 07-12-2023 Basophils/100 WBC (Bld) 1.0 % . [facility] Bilirubin.total [Mass/volume ] in Serum or PlasmaOrdered By: Delmi Burnett on 07-12-2023 Bilirubin [Mass/Vol] 0.5 mg/dL 0.3-1.0 [facility] Calcium [Mass/volume] in Ser um or PlasmaOrdered By: Delmi Burnett on 07-12-2023 Calcium [Mass/Vol] 9.1 mg/dL 8.6-10.3 [facility] Carbon dioxide, total [Moles /volume] in Serum or PlasmaOrdered By: Delmi Burnett on 07-12-2023 CO2 [Moles/Vol] 29.0 mmol/L 21.0-31.0 [facility] Chloride [Moles/volume] in S fermin or PlasmaOrdered By: Delmi Burnett on 07-12-2023 Chloride [Moles/Vol] 106 mmol/L 98-107 [facility] Cholesterol [Mass/volume] in Serum or PlasmaOrdered By: Delmi Burnett on 07-12-2023 Cholesterol [Mass/Vol] 190 mg/dL 140-200 [facility] Comment on above: Chol less than 200 m g/dl low riskChol 201-239 mg/dl borderline riskChol 240 mg/dl and greater high risk Cholesterol in LDL Calc [Mas s/Vol]Ordered By: Delmi Burnett on 07-12-2023 Cholesterol in LDL [Mass/Vol] 111 mg/dL 0-100 [facility] Comment on above: LDL ATP III CLASSIFI CATIONLDL less than 100 mg/dL OptimalLDL 100-129 mg/dL Near or above optimalLDL 130-159 mg/dL Borderline highLDL 160-189 mg/dL HighLDL greater than 189 mg/dL Very high Cholesterol in VLDL Calc [Ma ss/Vol]Ordered By: Delmi Burnett on 07-12-2023 Cholesterol in VLDL [Mass/Vol] 20 mg/dL [facility] Complete Blood Count Auto Di ffon 07-12-2023 Basophils (Bld) [#/Vol] 0.1 10*3/uL Normal 0.0-0.2 [facility] Comment on above: Result Comment: PERF ORMED BY: [facility] [address] [place] [address] PATHOLOGIST DEVELOPMENT ADMINISTRATOR MIKALA ENGLAND M.D. Performed By: #### C MP, TSH3, LIPID, T4F, CBC #### [address] Basophils/100 WBC (Bld) 1.0 % Normal . [facility] Comment on above: Performed By: #### C MP, TSH3, LIPID, T4F, CBC #### [address] Eosinophils (Bld) [#/Vol] 0.1 10*3/uL Normal 0.0-0.45 [facility] Comment on above: Performed By: #### C MP, TSH3, LIPID, T4F, CBC #### [address] Eosinophils/100 WBC (Bld) 2.0 % Normal . [facility] Comment on above: Performed By: #### C MP, TSH3, LIPID, T4F, CBC #### [address] Erythrocyte distribution width (RBC) [Ratio] 14.5 % Normal 11.9-15.3 [facility] Comment on above: Performed By: #### C MP, TSH3, LIPID, T4F, CBC #### [address] Hematocrit (Bld) [Volume fraction] 38.8 % Normal 34.0-46.4 [facility] Comment on above: Performed By: #### C MP, TSH3, LIPID, T4F, CBC #### [address] Hemoglobin (Bld) [Mass/Vol] 12.9 g/dL Normal 11.8-15.4 [facility] Comment on above: Performed By: #### C MP, TSH3, LIPID, T4F, CBC #### [address] Lymphocytes (Bld) [#/Vol] 1.7 10*3/uL Normal 1.00-4.8 [facility] Comment on above: Performed By: #### C MP, TSH3, LIPID, T4F, CBC #### [address] Lymphocytes/100 WBC (Bld) 27.9 % Normal . [facility] Comment on above: Performed By: #### C MP, TSH3, LIPID, T4F, CBC #### [address] MCH (RBC) [Entitic mass] 30.4 pg Normal 24.7-34.3 [facility] Comment on above: Performed By: #### C MP, TSH3, LIPID, T4F, CBC #### [address] MCV (RBC) [Entitic vol] 91.3 fL Normal 80-100 [facility] Comment on above: Performed By: #### C MP, TSH3, LIPID, T4F, CBC #### [address] Mean Corpuscular HGB Conc 33.3 g/dL Normal 32.0-35.0 [facility] Comment on above: Performed By: #### C MP, TSH3, LIPID, T4F, CBC #### [address] Monocytes (Bld) [#/Vol] 0.4 10*3/uL Normal 0.0-0.8 [facility] Comment on above: Performed By: #### C MP, TSH3, LIPID, T4F, CBC #### [address] Monocytes/100 WBC (Bld) 6.5 % Normal . [facility] Comment on above: Performed By: #### C MP, TSH3, LIPID, T4F, CBC #### [address] Neutrophils (Bld) [#/Vol] 3.8 10*3/uL Normal 1.8-7.7 [facility] Comment on above: Performed By: #### C MP, TSH3, LIPID, T4F, CBC #### [address] Neutrophils/100 WBC (Bld) 62.6 % Normal . [facility] Comment on above: Performed By: #### C MP, TSH3, LIPID, T4F, CBC #### [address] NRBC% 0.1 /100{WBC} Normal 0-0.5 [facility] Comment on above: Performed By: #### C MP, TSH3, LIPID, T4F, CBC #### [address] Platelet mean volume (Bld) [Entitic vol] 8.7 fL Normal 6.3-10.7 [facility] Comment on above: Performed By: #### C MP, TSH3, LIPID, T4F, CBC #### [address] Platelets (Bld) [#/Vol] 285 10*3/uL Normal 150-450 [facility] Comment on above: Performed By: #### C MP, TSH3, LIPID, T4F, CBC #### [address] RBC (Bld) [#/Vol] 4.25 10*6/uL Normal 3.60-5.[address] [facility] Comment on above: Performed By: #### C MP, TSH3, LIPID, T4F, CBC #### [address] WBC (Bld) [#/Vol] 6.1 10*3/uL Normal 3.8-11.6 [facility] Comment on above: Performed By: #### C MP, TSH3, LIPID, T4F, CBC #### [address] Comprehensive Metabolic Pane lenora 07-12-2023 Albumin [Mass/Vol] 4.2 g/dL Normal 3.5-5.7 [facility] Comment on above: Performed By: #### C MP, TSH3, LIPID, T4F, CBC #### [facility] [address] [place] [address] Albumin/Globulin [Mass ratio] 1.6 {ratio} Normal [facility] Comment on above: Performed By: #### C MP, TSH3, LIPID, T4F, CBC #### [facility] [address] [place] [address] ALP [Catalytic activity/Vol] 68 U/L Normal 34-104 [facility] Comment on above: Performed By: #### C MP, TSH3, LIPID, T4F, CBC #### [address] ALT [Catalytic activity/Vol] 14 U/L Normal 7-52 [facility] Comment on above: Performed By: #### C MP, TSH3, LIPID, T4F, CBC #### [address] Anion gap [Moles/Vol] 7.5 mmol/L Normal 6.0-15.0 [facility] Comment on above: Performed By: #### C MP, TSH3, LIPID, T4F, CBC #### [address] AST [Catalytic activity/Vol] 17 U/L Normal 13-39 [facility] Comment on above: Performed By: #### C MP, TSH3, LIPID, T4F, CBC #### [address] Bilirubin [Mass/Vol] 0.5 mg/dL Normal 0.3-1.0 [facility] Comment on above: Performed By: #### C MP, TSH3, LIPID, T4F, CBC #### [address] Calcium [Mass/Vol] 9.1 mg/dL Normal 8.6-10.3 [facility] Comment on above: Performed By: #### C MP, TSH3, LIPID, T4F, CBC #### [facility] [address] Chloride [Moles/Vol] 106 mmol/L Normal 98-107 [facility] Comment on above: Performed By: #### C MP, TSH3, LIPID, T4F, CBC #### [address] CO2 [Moles/Vol] 29.0 mmol/L Normal 21.0-31.0 [facility] Comment on above: Performed By: #### C MP, TSH3, LIPID, T4F, CBC #### [address] Creatinine [Mass/Vol] 0.69 mg/dL Normal 0.60-1.20 [facility] Comment on above: Performed By: #### C MP, TSH3, LIPID, T4F, CBC #### [address] GFR/1.73 sq M.predicted MDRD (S/P/Bld) [Vol rate/Area] mL/min/{1.73_m2} Normal [facility] Comment on above: Performed By: #### C MP, TSH3, LIPID, T4F, CBC #### [address] Globulin (S) [Mass/Vol] 2.6 g/dL Normal [facility] Comment on above: Performed By: #### C MP, TSH3, LIPID, T4F, CBC #### [address] Glucose [Mass/Vol] 88 mg/dL Normal 70-100 [facility] Comment on above: Result Comment: [place] Glucose Reference Range is dependent on time and content of last meal. Glucose of more than 200 mg/dL in a nonstressed, ambulatory subject supports the diagnosis of Diabetes Mellitus. ADA recommended reference range Performed By: #### C MP, TSH3, LIPID, T4F, CBC #### [address] Potassium [Moles/Vol] 4.5 mmol/L Normal 3.5-5.1 [facility] Comment on above: Performed By: #### C MP, TSH3, LIPID, T4F, CBC #### [facility] [address] Protein [Mass/Vol] 6.8 g/dL Normal 6.4-8.9 [facility] Comment on above: Performed By: #### C MP, TSH3, LIPID, T4F, CBC #### [facility] [address] Sodium [Moles/Vol] 138 mmol/L Normal 136-145 [facility] Comment on above: Performed By: #### C MP, TSH3, LIPID, T4F, CBC #### [facility] [address] Urea nitrogen [Mass/Vol] 16 mg/dL Normal 7-25 [facility] Comment on above: Performed By: #### C MP, TSH3, LIPID, T4F, CBC #### [address] Creatinine [Mass/volume] in Serum or PlasmaOrdered By: Delmi Burnett on 07-12-2023 Creatinine [Mass/Vol] 0.69 mg/dL 0.60-1.20 [facility] Eosinophils Auto (Bld) [#/Vo l]Ordered By: Delmi Burnett on 07-12-2023 Eosinophils (Bld) [#/Vol] 0.1 10*3/uL 0.0-0.45 [facility] Eosinophils/100 WBC Auto (Bl d)Ordered By: Delmi Burnett on 07-12-2023 Eosinophils/100 WBC (Bld) 2.0 % . [facility] Erythrocyte distribution wid th Auto (RBC) [Ratio]Ordered By: Delmi Burnett on 07-12-2023 Erythrocyte distribution width (RBC) [Ratio] 14.5 % 11.9-15.3 [facility] Free T4 (Free Thyroxine)on 0 07-12-2023 Free T4 [Mass/Vol] 0.61 ng/dL Normal 0.61-1.12 [facility] Comment on above: Performed By: #### C MP, TSH3, LIPID, T4F, CBC #### [facility] [address] Globulin Calc (S) [Mass/Vol] Ordered By: Delmi Burnett on 07-12-2023 Globulin (S) [Mass/Vol] 2.6 g/dL [facility] Glucose [Mass/volume] in Ser um or PlasmaOrdered By: Delmi Burnett on 07-12-2023 Glucose [Mass/Vol] 88 mg/dL 70-100 [facility] Comment on above: ADA recommended refe rence rangeRandom Glucose Reference Range is dependent on time and content of last meal. Glucose of more than 200 mg/dL in a nonstressed, ambulatory subject supports the diagnosis of Diabetes Mellitus. Hematocrit Auto (Bld) [Volum e fraction]Ordered By: Delmi Burnett on 07-12-2023 Hematocrit (Bld) [Volume fraction] 38.8 % 34.0-46.4 [facility] Hemoglobin [Mass/volume] in BloodOrdered By: Delmi Burnett on 07-12-2023 Hemoglobin (Bld) [Mass/Vol] 12.9 g/dL 11.8-15.4 [facility] Leukocytes [#/volume] correc evelio for nucleated erythrocytes in Blood by Automated counOrdered By: Delmi Burnett on 07-12-2023 WBC corrected for nucl RBC Auto (Bld) [#/Vol] 6.1 10*3/uL 3.8-11.6 [facility] Lipid Panelon 07-12-2023 Cholesterol [Mass/Vol] 190 mg/dL Normal 140-200 [facility] Comment on above: Result Comment: Chol less than 200 mg/dl low risk Chol 201-239 mg/dl borderline risk Chol 240 mg/dl and greater high risk Performed By: #### C MP, TSH3, LIPID, T4F, CBC #### [facility] [address] [place] [id number] [facility] Cholesterol in HDL [Mass/Vol] 59 mg/dL Normal 23-92 [facility] Comment on above: Result Comment: HDL CHOL ATP-III CLASSIFICATION Cardiovascular Risk HDL > or equal to 60 mg/dL LOW HDL < 40 mg/dL HIGH Performed By: #### C MP, TSH3, LIPID, T4F, CBC #### [facility] [address] Cholesterol.total/Choles terol in HDL [Mass ratio] 3.2 {ratio} Normal <5.0 [facility] Comment on above: Performed By: #### C MP, TSH3, LIPID, T4F, CBC #### [facility] [address] LDL Cholesterol,Calculated 111 mg/dL High 0-100 [facility] Comment on above: Result Comment: LDL ATP III CLASSIFICATION LDL less than 100 mg/dL Optimal LDL 100-129 mg/dL Near or above optimal LDL 130-159 mg/dL Borderline high LDL 160-189 mg/dL High LDL greater than 189 mg/dL Very high Performed By: #### C MP, TSH3, LIPID, T4F, CBC #### [facility] [address] Triglyceride w/Reflex 102 mg/dL Normal 0-149 [facility] Comment on above: Result Comment: TRIG ATP III CLASSIFICATION TRIG less than 150 mg/dL Normal TRIG 150-199 mg/dL Borderline high TRIG 200-500 mg/dL High TRIG greater than 500 mg/dL Very high Standard traceable to the Center for Disease Conrtrol and Prevention (CDC) test method. Performed By: #### C MP, TSH3, LIPID, T4F, CBC #### [facility] [address] VLDL CHOLESTEROL 20 mg/dL Normal [facility] Comment on above: Performed By: #### C MP, TSH3, LIPID, T4F, CBC #### [facility] [address] Lymphocytes Auto (Bld) [#/Vo l]Ordered By: Delmi Burnett on 07-12-2023 Lymphocytes (Bld) [#/Vol] 1.7 10*3/uL 1.00-4.8 [facility] Lymphocytes/100 WBC Auto (Bl d)Ordered By: Delmi Burnett on 07-12-2023 Lymphocytes/100 WBC (Bld) 27.9 % . [facility] MCH Auto (RBC) [Entitic mass ]Ordered By: Delmi Burnett on 07-12-2023 MCH (RBC) [Entitic mass] 30.4 pg 24.7-34.3 [facility] MCHC Auto (RBC) [Mass/Vol]Or dered By: Delmi Burnett on 07-12-2023 MCHC (RBC) [Mass/Vol] 33.3 g/dL 32.0-35.0 [facility] MCV Auto (RBC) [Entitic vol] Ordered By: Delmi Burnett on 07-12-2023 MCV (RBC) [Entitic vol] 91.3 fL 80-100 [facility] Monocytes Auto (Bld) [#/Vol] Ordered By: Delmi Burnett on 07-12-2023 Monocytes (Bld) [#/Vol] 0.4 10*3/uL 0.0-0.8 [facility] Monocytes/100 WBC Auto (Bld) Ordered By: Delmi Burnett on 07-12-2023 Monocytes/100 WBC (Bld) 6.5 % . [facility] Neutrophils Auto (Bld) [#/Vo l]Ordered By: Delmi Burnett on 07-12-2023 Neutrophils (Bld) [#/Vol] 3.8 10*3/uL 1.8-7.7 [facility] Neutrophils/100 WBC Auto (Bl d)Ordered By: Delmi Burnett on 07-12-2023 Neutrophils/100 WBC (Bld) 62.6 % . [facility] No Panel InformationOrdered By: Delmi Burnett on 07-12-2023 Estimated GFR (CKD-EPI) > 60.0 mL/Min [facility] Creatinine Clearance (Chem N/A [facility] Nucleated erythrocytes [Pres ence] in Blood by Automated countOrdered By: Delmi Burnett on 07-12-2023 Nucleated RBC Auto Ql (Bld) 0.1 /100{WBC} 0-0.5 [facility] Platelet mean volume Auto (B ld) [Entitic vol]Ordered By: Delmi Burnett on 07-12-2023 Platelet mean volume (Bld) [Entitic vol] 8.7 fL 6.3-10.7 [facility] Platelets Auto (Bld) [#/Vol] Ordered By: Delmi Burnett on 07-12-2023 Platelets (Bld) [#/Vol] 285 10*3/uL 150-450 [facility] Potassium [Moles/volume] in Serum or PlasmaOrdered By: Delmi Burnett on 07-12-2023 Potassium [Moles/Vol] 4.5 mmol/L 3.5-5.1 [facility] Protein [Mass/volume] in Ser um or PlasmaOrdered By: Delmi Burnett on 07-12-2023 Protein [Mass/Vol] 6.8 g/dL 6.4-8.9 [facility] RBC Auto (Bld) [#/Vol]Ordere d By: Delmi Burnett on 07-12-2023 RBC (Bld) [#/Vol] 4.25 10*6/uL 3.60-5.[address] [facility] Serum or plasma albumin/glob ulin mass ratioOrdered By: Delmi Burnett on 07-12-2023 Albumin/Globulin [Mass ratio] 1.6 {ratio} [facility] Serum or plasma anion gap de terminationOrdered By: Delmi Burnett on 07-12-2023 Anion gap [Moles/Vol] 7.5 mmol/L 6.0-15.0 [facility] Serum or plasma high density lipoprotein (HDL) cholesterol measurementOrdered By: Delmi Burnett on 07-12-2023 Cholesterol in HDL [Mass/Vol] 59 mg/dL 23-92 [facility] Comment on above: HDL CHOL ATP-III CLA SSIFICATION Cardiovascular RiskHDL > or equal to 60 mg/dL LOWHDL < 40 mg/dL HIGH Serum or plasma total choles terol/high density lipoprotein (HDL) cholesterol mass ratOrdered By: Delmi Burnett on 07-12-2023 Cholesterol.total/Choles terol in HDL [Mass ratio] 3.2 {ratio} <5.0 [facility] Sodium [Moles/volume] in Ser um or PlasmaOrdered By: Delmi Burnett on 07-12-2023 Sodium [Moles/Vol] 138 mmol/L 136-145 [facility] Thyroid Stimulating Hormoneo n 07-12-2023 TSH Qn 1.70 m[IU]/L Normal 0.45-5.33 [facility] Comment on above: Result Comment: PERF ORMED BY: [facility] [address] [place] [address] PATHOLOGIST DEVELOPMENT ADMINISTRATOR MIKALA ENGLAND M.D. Performed By: #### C MP, TSH3, LIPID, T4F, CBC #### [facility] [address] Thyrotropin [Units/volume] i n Serum or PlasmaOrdered By: Delmi Burnett on 07-12-2023 TSH Qn 1.70 m[IU]/L 0.45-5.33 [facility] Thyroxine (T4) free [Mass/vo lume] in Serum or PlasmaOrdered By: Delmi Burnett on 07-12-2023 Free T4 [Mass/Vol] 0.61 ng/dL 0.61-1.12 [facility] Triglyceride [Mass/volume] i n Serum or PlasmaOrdered By: Delmi Burnett on 07-12-2023 Triglyceride [Mass/Vol] 102 mg/dL 0-149 [facility] Comment on above: TRIG ATP III CLASSIF ICATIONTRIG less than 150 mg/dL NormalTRIG 150-199 mg/dL Borderline highTRIG 200-500 mg/dL High TRIG greater than 500 mg/dL Very highStandard traceable to the Center for Disease Conrtrol and Prevention (CDC) test method. Urea nitrogen [Mass/volume] in Serum or PlasmaOrdered By: Delmi Burnett on 07-12-2023 Urea nitrogen [Mass/Vol] 16 mg/dL 7-25 [facility] WBC Auto (Bld) [#/Vol]Ordere d By: Delmi Burnett on 07-12-2023 WBC (Bld) [#/Vol] 6.1 10*3/uL 3.8-11.6 [facility] HPV DNA High Riskon 06-26-19 24 HPV Interp Normal [facility] Comment on above: Result Comment: This [...] purposes. Performed By: #### H PVH #### [address] [address] Hospital Receiving Clerk: Kane Lawson MD HPV Type 16 Not detected Normal [facility] Comment on above: Performed By: #### H PVH #### [address] [address] Hospital Receiving Clerk: Kane Lawson MD HPV Type 18 Not detected [facility] Comment on above: Performed By: #### H PVH #### [address] [address] Hospital Receiving Clerk: Kane Lawson MD Other High Risk HPV Not detected [facility] Comment on above: Performed By: #### H PVH #### [address] [address] Hospital Receiving Clerk: Kane Lawson MD HPV DNA High Riskon 06-25-19 24 HPV Sample .THIN PREP [facility] Comment on above: Performed By: #### H PVH #### [address] [address] Hospital Receiving Clerk: Kane Lawson MD Source CERVICAL MATERIAL Normal [facility] Comment on above: Performed By: #### H PVH #### [address] [address] Hospital Receiving Clerk: Kane Lawson MD Cytology Reporton 06-08-2023 Cytology report Cyto stain.thin prep Doc (Cvx/Vag) (NOTE) Path Number: [id number] DIAGNOSIS Imaged ThinPrep Pap - Cervical (1 monolayer slide): Specimen Adequacy: Satisfactory for evaluation. - Endocervical/transform ation zone component present. Descriptive Diagnosis: Atypical squamous cells of undetermined significance (ASC-US). Cytotech Screener: KACEY Electronically Signed Out Viviana Conde. /06/25/2023 Procedure/Addendum HPV Procedure Report Date Ordered: 06/25/2023 Status: Signed Out Date Complete: 06/26/2023 By: System Interface Date Reported: 06/26/2023 Sample: HPV Type 16 Result: Not Detected [...] abuse or for other forensic purposes. Performed at [address] [address] ([phone] Source of Specimen: A: Imaged ThinPrep Pap - Cervical (1 monolayer slide) HPV Reflex?............... .......HPV if Abnormal Clinical History R87.610 Cytology smear of cervix with ASC-US Processing Lab: [address] [id number] Interpretation performed at [address] [address] This Pap Test has been evaluated with the assistance of the ThinPrep Pap Test Imaging System. The Pap smear is a screening test primarily for squamous epithelial lesions, which is subject to both false negative and false positive results. Your patient should be reminded to consult you immediately if she experiences any suspicious signs or symptoms, regardless of her Pap smear result. GYNECOLOGIC CYTOLOGY REPORT Patient Name: KOURTNEY RED [facility] Rec: [id number] [facility] ANATOMIC PATHOLOGY [address] [place] [id number] [facility] Health HPV DNA High Riskon 08-25-19 23 HPV Interp [facility] Comment on above: Result Comment: This test [...] purposes. Performed By: #### H PVH #### [address] [id number] Hospital Receiving Clerk: Kane Lawson MD HPV Type 16 Not detected [facility] Comment on above: Performed By: #### H PVH #### [address] [address] Hospital Receiving Clerk: Kane Lawson MD HPV Type 18 Not detected [facility] Comment on above: Performed By: #### H PVH #### [address] [address] Hospital Receiving Clerk: Kane Lawson MD Other High Risk HPV Not detected [facility] Comment on above: Performed By: #### H PVH #### [address] [address] Hospital Receiving Clerk: Kane Lawson MD HPV DNA High Riskon 08-22-19 23 HPV Sample .THIN PREP Normal [facility] Comment on above: Performed By: #### H PVH #### [employer] [address] [place], [place] [phone] Hospital Receiving Clerk: Kane Lawson MD Source CERVICAL MATERIAL Normal [facility] Comment on above: Performed By: #### H PVH #### [facility] [address] [place], [place] [phone] Hospital Receiving Clerk: Kane Lawson MD MM screening mammo BI w/CADo n 08-14-2022 MM screening mammo BI w/CAD [facility] [place] [address] Mammography Report Signed Patient: Kourtney Red MR#: [id number] 9 : 1980 Acct:[id number] Age/Sex: 41 / F ADM Date: 08/14/22 Loc: [place] Room: Type: [facility] Attending Dr: Referral Self Copies to: SELF,REFERRAL Glenys Murillo APRN,VETERINARY PHYSIOLOGIST Ordering Provider: SELF,REFERRAL Date of Service: 08/14/22 [...] Alphonso Dye M.D.08/14/2022 1:17 PM Dictation Location: [facility] Transcribed By: CITLALLI 08/14/22 1317 Dictated By: Alphonso Dye II, MD 08/14/22 1309 Signed By: 08/14/22 1317 [place] Cytologyon 08-11-2022 Cytology (NOTE) INTERPRETATION Cervical material, (ThinPrep vial, Imaging-assisted review): Specimen Adequacy: Satisfactory for evaluation. - Endocervical/transform ation zone component present. Descriptive Diagnosis: Atypical squamous cells of undetermined significance (ASC-US). Wire Worker: SYLVIA Garcia Electronically Signed Out ag/08/21/2022 Procedure/Addendum [...] LMP: 07/24/2022 GYNECOLOGIC CYTOLOGY REPORT Patient Name: KOURTNEY RED [facility] Rec: [id number] Path Number: [id number] [employer] [facility] ANATOMIC PATHOLOGY [address] [place] [phone] Normal [facility] Comment on above: Performed By: #### P PPVP #### [facility] [address] [place] [address] [phone] Hospital Receiving Clerk: Kane Lawson MD Albumin [Mass/volume] in Ser um or PlasmaOrdered By: Glenys Murillo on 07-05-2022 Albumin [Mass/Vol] 3.8 g/dL 3.2-5.5 [facility] Basophils Auto (Bld) [#/Vol] Ordered By: Glenys Murillo on 07-05-2022 Basophils (Bld) [#/Vol] 0.0 10*3/uL 0.0-0.2 [facility] Basophils/100 WBC Auto (Bld) Ordered By: Glenys Murillo on 07-05-2022 Basophils/100 WBC (Bld) 0.7 % . [facility] Cholesterol [Mass/volume] in Serum or PlasmaOrdered By: Glenys Murillo on 07-05-2022 Cholesterol [Mass/Vol] 169 mg/dL 140-200 [facility] Comment on above: Chol less than 200 m g/dl low riskChol 201-239 mg/dl borderline riskChol 240 mg/dl and greater high risk Cholesterol in LDL Calc [Mas s/Vol]Ordered By: Glenys Murillo on 07-05-2022 Cholesterol in LDL [Mass/Vol] 94 mg/dL 0-100 [facility] Comment on above: LDL ATP III CLASSIFI CATIONLDL less than 100 mg/dL OptimalLDL 100-129 mg/dL Near or above optimalLDL 130-159 mg/dL Borderline highLDL 160-189 mg/dL HighLDL greater than 189 mg/dL Very high Cholesterol in VLDL Calc [Ma ss/Vol]Ordered By: Glenys Murillo on 07-05-2022 Cholesterol in VLDL [Mass/Vol] 30 mg/dL [facility] Creatinine and Glomerular fi ltration rate.predicted panel (S/P/Bld)Ordered By: Glenys Murillo on 07-05-2022 Creatinine [Mass/Vol] 0.73 mg/dL 0.44-1.03 [facility] Eosinophils Auto (Bld) [#/Vo l]Ordered By: Glenys Murillo on 07-05-2022 Eosinophils (Bld) [#/Vol] 0.2 10*3/uL 0.0-0.45 [facility] Eosinophils/100 WBC Auto (Bl d)Ordered By: Glenys Murillo on 07-05-2022 Eosinophils/100 WBC (Bld) 3.1 % . [facility] Erythrocyte distribution wid th Auto (RBC) [Ratio]Ordered By: Glenys Murillo on 07-05-2022 Erythrocyte distribution width (RBC) [Ratio] 14.8 % 11.9-15.3 [facility] Estimated glomerular filtrat ion rate (GFR) non- AmericanOrdered By: Glenys Murillo on 07-05-2022 GFR/1.73 sq M.predicted among non-blacks MDRD (S/P/Bld) [Vol rate/Area] > 60 mL/Min [facility] Globulin Calc (S) [Mass/Vol] Ordered By: Glenys Murillo on 07-05-2022 Globulin (S) [Mass/Vol] 2.6 g/dL [facility] Hematocrit Auto (Bld) [Volum e fraction]Ordered By: Glenys Murillo on 07-05-2022 Hematocrit (Bld) [Volume fraction] 38.2 % 34.0-46.4 [facility] Hemoglobin [Mass/volume] in BloodOrdered By: Glenys Murillo on 07-05-2022 Hemoglobin (Bld) [Mass/Vol] 12.7 g/dL 11.8-15.4 [facility] Leukocytes [#/volume] correc evelio for nucleated erythrocytes in Blood by Automated counOrdered By: Glenys Murillo on 07-05-2022 WBC corrected for nucl RBC Auto (Bld) [#/Vol] 5.5 10*3/uL 3.8-11.6 [facility] Lymphocytes Auto (Bld) [#/Vo l]Ordered By: Glenys Murillo on 07-05-2022 Lymphocytes (Bld) [#/Vol] 1.5 10*3/uL 1.00-4.8 [facility] Lymphocytes/100 WBC Auto (Bl d)Ordered By: Glenys Murillo on 07-05-2022 Lymphocytes/100 WBC (Bld) 27.6 % . [facility] MCH Auto (RBC) [Entitic mass ]Ordered By: Glenys Murillo on 07-05-2022 MCH (RBC) [Entitic mass] 29.1 pg 24.7-34.3 [facility] MCHC Auto (RBC) [Mass/Vol]Or dered By: Glenys Murillo on 07-05-2022 MCHC (RBC) [Mass/Vol] 33.3 g/dL 32.0-35.0 [facility] MCV Auto (RBC) [Entitic vol] Ordered By: Glenys Murillo on 07-05-2022 MCV (RBC) [Entitic vol] 87.5 fL 80-100 [facility] Monocytes Auto (Bld) [#/Vol] Ordered By: Glenys Murillo on 07-05-2022 Monocytes (Bld) [#/Vol] 0.4 10*3/uL 0.0-0.8 [facility] Monocytes/100 WBC Auto (Bld) Ordered By: Glenys Murillo on 07-05-2022 Monocytes/100 WBC (Bld) 7.0 % . [facility] Neutrophils Auto (Bld) [#/Vo l]Ordered By: Glenys Murillo on 07-05-2022 Neutrophils (Bld) [#/Vol] 3.4 10*3/uL 1.8-7.7 [facility] Neutrophils/100 WBC Auto (Bl d)Ordered By: Glenys Murillo on 07-05-2022 Neutrophils/100 WBC (Bld) 61.6 % . [facility] No Panel InformationOrdered By: Glenys Murillo on 07-05-2022 Estimated GFR () > 60 mL/Min [facility] Comment on above: GFR estimated refere nce range: According to KDOQI guidelines, <60 ml/min/1.73m2 is sufficient to diagnose a patient with chronic kidney disease. Pharmacy Creatinine Clearance (Chem N/A [facility] Nucleated erythrocytes [Pres ence] in Blood by Automated countOrdered By: lGenys Murillo on 07-05-2022 Nucleated RBC Auto Ql (Bld) 0.2 /100{WBC} 0-0.5 [facility] Platelet mean volume Auto (B ld) [Entitic vol]Ordered By: Glenys Murillo on 07-05-2022 Platelet mean volume (Bld) [Entitic vol] 8.5 fL 6.3-10.7 [facility] Platelets Auto (Bld) [#/Vol] Ordered By: Glenys Murillo on 07-05-2022 Platelets (Bld) [#/Vol] 270 10*3/uL 150-450 [facility] Protein [Mass/volume] in Ser um or PlasmaOrdered By: Glenys Murillo on 07-05-2022 Protein [Mass/Vol] 6.4 g/dL 6.1-7.9 [facility] RBC Auto (Bld) [#/Vol]Ordere d By: Glenys Murillo on 07-05-2022 RBC (Bld) [#/Vol] 4.36 10*6/uL 3.60-5.[address] [facility] Serum or plasma alanine stockton otransferase measurement without P-5'-P (enzymatic activiOrdered By: Glenys Murillo on 07-05-2022 ALT No additional P-5'-P [Catalytic activity/Vol] 14 U/L 10-60 [facility] Serum or plasma albumin/glob ulin mass ratioOrdered By: Glenys Murillo on 07-05-2022 Albumin/Globulin [Mass ratio] 1.5 {ratio} [facility] Serum or plasma alkaline daniel sphatase measurement (enzymatic activity/volume)Ordered By: Glenys Murillo on 07-05-2022 ALP [Catalytic activity/Vol] 77 U/L 32-92 [facility] Serum or plasma anion gap de terminationOrdered By: Glenys Murillo on 07-05-2022 Anion gap [Moles/Vol] 10.7 mmol/L 6.0-15.0 [facility] Serum or plasma aspartate am inotransferase measurement (enzymatic activity/volume)Ordered By: Glenys Murillo on 07-05-2022 AST [Catalytic activity/Vol] 18 U/L 10-42 [facility] Serum or plasma calcium narciso urement (mass/volume)Ordered By: Glenys Murillo on 07-05-2022 Calcium [Mass/Vol] 9.1 mg/dL 8.2-10.2 [facility] Serum or plasma chloride joao surement (moles/volume)Ordered By: Glenys Murillo on 07-05-2022 Chloride [Moles/Vol] 105 mmol/L 95-114 [facility] Serum or plasma glucose narciso urement (mass/volume)Ordered By: Glenys Murillo on 07-05-2022 Glucose [Mass/Vol] 88 mg/dL 70-100 [facility] Comment on above: ADA recommended refe rence rangeRandom Glucose Reference Range is dependent on time and content of last meal. Glucose of more than 200 mg/dL in a nonstressed, ambulatory subject supports the diagnosis of Diabetes Mellitus. Serum or plasma high density lipoprotein (HDL) cholesterol measurementOrdered By: Glenys Murillo on 07-05-2022 Cholesterol in HDL [Mass/Vol] 44 mg/dL 35-85 [facility] Comment on above: HDL CHOL ATP-III CLA SSIFICATION Cardiovascular RiskHDL > or equal to 60 mg/dL LOWHDL < 40 mg/dL HIGH Serum or plasma potassium me asurement (moles/volume)Ordered By: Glenys Murillo on 07-05-2022 Potassium [Moles/Vol] 4.5 mmol/L 3.5-5.1 [facility] Serum or plasma sodium measu rement (moles/volume)Ordered By: Glenys Murillo on 07-05-2022 Sodium [Moles/Vol] 137 mmol/L 136-146 [facility] Serum or plasma total biliru bin measurement (mass/volume)Ordered By: Glenys Murillo on 07-05-2022 Bilirubin [Mass/Vol] 0.5 mg/dL 0.3-1.2 [facility] Serum or plasma total carbon dioxide measurement (moles/volume)Ordered By: Glenys Murillo on 07-05-2022 CO2 [Moles/Vol] 25.8 mmol/L 22.0-30.0 [facility] Serum or plasma total choles terol/high density lipoprotein (HDL) cholesterol mass ratOrdered By: Glenys Murillo on 07-05-2022 Cholesterol.total/Choles terol in HDL [Mass ratio] 3.8 {ratio} <5.0 [facility] Serum or plasma urea nitroge n measurement (mass/volume)Ordered By: Glenys Murillo on 07-05-2022 Urea nitrogen [Mass/Vol] 12 mg/dL 9- [facility] TSH DL <= 0.005 mIU/L QnOrde red By: Glenys Mruillo on 07-05-2022 TSH Qn 2.02 m[IU]/L 0.45-5.33 [facility] Thyroxine (T4) free [Mass/vo lume] in Serum or PlasmaOrdered By: Glenys Murillo on 07-05-2022 Free T4 [Mass/Vol] 0.68 ng/dL 0.61-1.12 [facility] Triglyceride [Mass/volume] i n Serum or PlasmaOrdered By: Glenys Murillo on 07-05-2022 Triglyceride [Mass/Vol] 153 mg/dL 35-149 [facility] Comment on above: TRIG ATP III CLASSIF ICATIONTRIG less than 150 mg/dL NormalTRIG 150-199 mg/dL Borderline highTRIG 200-500 mg/dL High TRIG greater than 500 mg/dL Very highStandard traceable to the Center for Disease Conrtrol and Prevention (CDC) test method. WBC Auto (Bld) [#/Vol]Ordere d By: Glenys Murillo on 07-05-2022 WBC (Bld) [#/Vol] 5.5 10*3/uL 3.8-11.6 [facility] OPERATIVE REPORTon 0 OPERATIVE REPORT [address] [phone] OPERATIVE REPORT PATIENT NAME: KOURTNEY RED : 1980 MED REC NO: [id number] ROOM: ACCOUNT NO: [id number] ADMIT DATE: 02/17/2020 PROVIDER: Rayray Hart DATE [...] in satisfactory condition. RAYRAY HART JEAN/Shirley_OPSAJ_T Doc#: [id number] CC: Normal [facility] POCT HCG, Prenancy, Uron Beta HCG ( test) Ql (U) Negative NEGATIVE [place], [place] Comment on above: HCG screen is sensitive to 25 mIU/mL. However this test may machine operator hop picker lower levels of HCG. If further evaluation is needed please request quantitative HCG. - NOT REPORTED [place], [place] Surgical Pathologyon 020 Surgical Pathology (NOTE) [id number] [place], [place] [address] SURGICAL PATHOLOGY REPORT Patient Name: KOURTNEY RED MR#: [id number] Specimen #[id number] Final Diagnosis RIGHT EAR: CHOLESTEATOMA Aries Ferguson D.O. Electronically Signed Out [facility]/02/19/2020 Clinical Information Removal cholesteatoma right ear; patient to do COVID test at [facility], pt to bring results with her; formalin [...] one YURIDIA slide confirms the diagnosis. Normal [facility] Comment on above: Performed By: #### P PPES #### [facility] [address] [facility] [place] [address] Hospital Receiving Clerk: Aries Ferguson DO CBC Auto Differentialon 01-26 Basophils (Bld) [#/Vol] 0.00 10*3/uL [place], [place] Basophils/100 WBC (Bld) 1 % 0 - 2 % M [place], [place] Differential Type NOT REPORTED [place] Eosinophils (Bld) [#/Vol] 0.20 10*3/uL [place] Eosinophils/100 WBC (Bld) 3 % 0 - 4 % [place] Erythrocyte distribution width (RBC) [Ratio] 13.7 % 11.5 - 14.9 % [place] Hematocrit (Bld) [Volume fraction] 39.0 % 36 - 46 % [place] Hemoglobin (Bld) [Mass/Vol] 13.2 g/dL 12 - 16 g/dL [place] Lymphocytes (Bld) [#/Vol] 1.50 10*3/uL [place] Lymphocytes/100 WBC (Bld) 25 % 24 - 44 % [place] MCH (RBC) [Entitic mass] 31.0 pg 26 - 34 pg [place] MCHC (RBC) [Mass/Vol] 33.9 g/dL 31 - 37 g/dL M [place] MCV (RBC) [Entitic vol] 91.3 fL 80 - 100 fL [place] Monocytes (Bld) [#/Vol] 0.40 10*3/uL [place] Monocytes/100 WBC (Bld) 7 % 1 - 7 % M [place] Platelet mean volume (Bld) [Entitic vol] 8.9 fL 6 - 12 fL [place] Platelets (Bld) [#/Vol] NOT REPORTED [place] Platelets (Bld) [#/Vol] 256 10*3/uL [place] RBC (Bld) [#/Vol] 4.27 10*6/uL 4 - 5.2 m/uL [place], [place] RBC morphology finding Nom (Bld) NOT REPORTED [place] Segmented neutrophils/100 WBC (Bld) 64 % 36 - 66 % [place] Segs Absolute 4.00 [place] WBC (Bld) [#/Vol] NOT REPORTED per 100 WBC [place] WBC (Bld) [#/Vol] 6.2 10*3/uL [place] WBC Morphology NOT REPORTED [place] CBC with Diffon 02-10-2020 Abs. Basophil 0.00 k/uL Normal 0.0-0.2 [facility] Comment on above: Performed By: #### C DP #### [facility] [address] [facility] [place] [address] Hospital Receiving Clerk: Aries Ferguson DO Abs.Neutrophil (Seg) 4.00 k/uL Normal 1.3-9.1 [facility] Comment on above: Performed By: #### C DP #### [facility] [address] [facility] [place] [address] Hospital Receiving Clerk: Aries Ferguson DO Basophils/100 WBC (Bld) 1 % Normal 0-2 [facility] Comment on above: Performed By: #### C DP #### [facility] [address] [facility] [place] [address] Hospital Receiving Clerk: Aries Ferguson DO Eosinophils (Bld) [#/Vol] 0.20 10*3/uL Normal 0.0-0.4 [facility] Comment on above: Performed By: #### C DP #### [facility] [address] [facility] [place] [address] Hospital Receiving Clerk: Aries Ferguson DO Eosinophils/100 WBC (Bld) 3 % Normal 0-4 [facility] Comment on above: Performed By: #### C DP #### [facility] [address] [facility] [place] [address] Hospital Receiving Clerk: Aries Ferguson DO Erythrocyte distribution width (RBC) [Ratio] 13.7 % Normal 11.5-14.9 [facility] Comment on above: Performed By: #### C DP #### [facility] [address] [facility] [place] [address] Hospital Receiving Clerk: Aries Ferguson DO Hematocrit (Bld) [Volume fraction] 39.0 % Normal 36-46 [facility] Comment on above: Performed By: #### C DP #### [facility] [place] [address] Hospital Receiving Clerk: Aries Ferguson DO Hemoglobin (Bld) [Mass/Vol] 13.2 g/dL Normal 12.0-16.0 [facility] Comment on above: Performed By: #### C DP #### [facility] [place] [address] Hospital Receiving Clerk: Aries Ferguson DO Lymphocytes (Bld) [#/Vol] 1.50 10*3/uL Normal 1.0-4.8 [facility] Comment on above: Performed By: #### C DP #### [facility] [address] [place] [address] Hospital Receiving Clerk: Aries Ferguson DO Lymphocytes/100 WBC (Bld) 25 % Normal 24-44 [facility] Comment on above: Performed By: #### C DP #### [facility] [address] [place] [address] Hospital Receiving Clerk: Aries Ferguson DO MCH (RBC) [Entitic mass] 31.0 pg Normal 26-34 [facility] Comment on above: Performed By: #### C DP #### [facility] [address] [place] [address] Hospital Receiving Clerk: Aries Ferguson DO MCHC (RBC) [Mass/Vol] 33.9 g/dL Normal 31-37 [facility] Comment on above: Performed By: #### C DP #### [facility] [address] [place] [address] Hospital Receiving Clerk: Aries Ferguson DO MCV (RBC) [Entitic vol] 91.3 fL Normal 80-100 M [facility] Comment on above: Performed By: #### C DP #### [facility] [address] [place] [address] Hospital Receiving Clerk: Aries Ferguson DO Monocytes (Bld) [#/Vol] 0.40 10*3/uL Normal 0.1-1.3 [facility] Comment on above: Performed By: #### C DP #### [facility] [address] [place] [address] Hospital Receiving Clerk: Aries Ferguson DO Monocytes/100 WBC (Bld) 7 % Normal 1-7 M [facility] Comment on above: Performed By: #### C DP #### [facility] [place] [address] Hospital Receiving Clerk: Aries Ferguson DO Neutrophil (Seg) 64 % Normal 36-66 [facility] Comment on above: Performed By: #### C DP #### [facility] [place] [address] Hospital Receiving Clerk: Aries Ferguson DO Platelet mean volume (Bld) [Entitic vol] 8.9 fL Normal 6.0-12.0 [facility] Comment on above: Performed By: #### C DP #### [facility] [address] [place] [address] Hospital Receiving Clerk: Aries Ferguson DO Platelets (Bld) [#/Vol] 256 10*3/uL Normal 150-450 [facility] Comment on above: Performed By: #### C DP #### [facility] [place] [address] Hospital Receiving Clerk: Aries Ferguson DO RBC (Bld) [#/Vol] 4.27 10*6/uL Normal 4.0-5.2 [facility] Comment on above: Performed By: #### C DP #### [facility] [address] [place] [address] Hospital Receiving Clerk: Aries Ferguson DO WBC (Bld) [#/Vol] 6.2 10*3/uL Normal 3.5-11.0 [facility] Comment on above: Performed By: #### C DP #### [facility] [place] [address] Hospital Receiving Clerk: Aries Ferguson DO Abs.Imm.Granulocyte NOT REPORTED Normal 0.00-0.30 [facility] Comment on above: Performed By: #### C DP #### [facility] [address] [place] [address] Hospital Receiving Clerk: Aries Ferguson DO Auto Diff Performed NOT REPORTED Normal [facility] Comment on above: Performed By: #### C DP #### [facility] [address] [place] [address] Hospital Receiving Clerk: Aries Ferguson DO Immature granulocytes (Bld) [#/Vol] NOT REPORTED Normal 0 [facility] Comment on above: Performed By: #### C DP #### [facility] [address] [place] [address] Hospital Receiving Clerk: Aries Ferguson DO NRBC Automated NOT REPORTED Normal [facility] Comment on above: Performed By: #### C DP #### [facility] [place] [address] Hospital Receiving Clerk: Aries Ferguson DO Platelets (Bld) [#/Vol] NOT REPORTED Normal [facility] Comment on above: Performed By: #### C DP #### [facility] [address] [place] [address] Hospital Receiving Clerk: Aries Ferguson DO RBC morphology finding Nom (Bld) NOT REPORTED Normal [facility] Comment on above: Performed By: #### C DP #### [facility] [address] [place] [address] Hospital Receiving Clerk: Aries Ferguson DO WBC Morphology NOT REPORTED Normal [facility] Comment on above: Performed By: #### C DP #### [facility] [address] [place] [address] Hospital Receiving Clerk: Aries Ferguson DO Otheron 02-10-2020 Immature granulocytes (Bld) [#/Vol] NOT REPORTED [facility] [place] [place] IAC POSTERIOR FOSSA WO CO NTRASTon [...] Arnold Valiente MD 01/21/20 Final result Normal [facility] HPV DNA High Riskon 11-17-19 20 HPV Interp Normal [facility] Comment on above: Result Comment: This [...] purposes. Performed By: #### H PV #### [facility] [address] [place] [phone] Hospital Receiving Clerk: Kane Lawson MD HPV Type 16 Not Detected Normal [facility] Comment on above: Performed By: #### H PVH #### [facility] [address] [place] [address] [id number] Hospital Receiving Clerk: Kane Lawson MD HPV Type 18 Not Detected Normal [facility] Comment on above: Performed By: #### H PVH #### [facility] [address] [place] [address] [id number] Hospital Receiving Clerk: Kane Lawson MD Other High Risk HPV Not Detected Normal [facility] Comment on above: Performed By: #### H PVH #### [facility] [address] [place] [address] Hospital Receiving Clerk: Kane Lawson MD HPV DNA High Riskon 11-14-19 20 HPV Sample .THIN PREP Normal [facility] Comment on above: Performed By: #### H PVH #### [facility] [address] [place] [address] Hospital Receiving Clerk: Kane Lawson MD Source .CERVIX Normal [facility] Comment on above: Performed By: #### H PVH #### [facility] [address] [place] [address] Hospital Receiving Clerk: Kane Lawson MD Cytologyon 11-04-2019 Cytology (NOTE) INTERPRETATION Cervical material, (ThinPrep vial, Imaging-assisted review): Specimen Adequacy: Satisfactory for evaluation. - Endocervical/transform ation zone component present. Descriptive Diagnosis: Atypical squamous cells of undetermined significance (ASC-US). Comments: High Risk HPV testing was ordered. Wire Worker: MARTIN Vora M.D. 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 High Risk HPV DNA testing is requested if the diagnosis is ASC-US LMP: 10/20/2019 GYNECOLOGIC CYTOLOGY REPORT Patient Name: KOURTNEY RED Med Rec: [id number] Path Number: [id number] [facility] [place] ANATOMIC PATHOLOGY [address] [place] [phone] Normal [facility] Comment on above: Performed By: #### P PPVP #### [facility] [address] [place] [address] Hospital Receiving Clerk: Kane Lawson MD Hep B Surf Abon 03-25-2018 Hep B Surf Ab 134.10 mIU/mL High <10 [facility] Comment on above: Result Comment: REFE [...] B infection. Performed By: #### A HBS ####[address] [place] [address] Vital Signs Date Time Vital Sign Value Performing Clinician Facility 09-14-2021 09:45-0400 Body height 172.09 cm Maldonado Ulloa Other [facility] Other 09-14-2021 09:45-0400 Body mass index (BMI) [Ratio] 32.97 kg/m2 Maldonado Ulloa Other [facility] Other 09-14-2021 09:45-0400 Body weight 97.66 kg Maldonado Ulloa Other [facility] Other 09-14-2021 09:45-0400 Diastolic blood pressure 75 mm[Hg] Maldonado Ulloa Other [facility] XII Other 09-14-2021 09:45-0400 Respiratory rate 18 /min Maldonado Ulloa Other [facility] Other 09-14-2021 09:45-0400 SaO2% (BldA) [Mass fraction] 100 % Maldonado Morochodiff Other [facility] Other 09-14-2021 09:45-0400 Systolic blood pressure 97 mm[Hg] Maldonado Morochodiff Other [facility] Other 08-12-2021 09:30-0400 Body height 172.09 cm Jenna Pinaly Other [facility] Other 08-12-2021 09:30-0400 Body mass index (BMI) [Ratio] 33.4 kg/m2 Jenna Scally Other [facility] Other 08-12-2021 09:30-0400 Body weight 98.93 kg Jenna Scally Other [facility] Other 08-12-2021 09:30-0400 Diastolic blood pressure 85 mm[Hg] Jenna Scally Other [facility] Other 08-12-2021 09:30-0400 Respiratory rate 18 /min Jenna Scally Other [facility] Other 08-12-2021 09:30-0400 SaO2% (BldA) [Mass fraction] 100 % Jenna Olson Other [facility] Other 08-12-2021 09:30-0400 Systolic blood pressure 106 mm[Hg] Jenna Olson Other [facility] Other 06-01-2021 09:45-0500 Body height 172.09 cm Maldonado Morochodiff Other [facility] Other 06-01-2021 09:45-0500 Body mass index (BMI) [Ratio] 33.59 kg/m2 Maldonado Morochodiff Other [facility] Other 06-01-2021 09:45-0500 Body weight 99.47 kg Maldonado Laila Other [facility] Other 06-01-2021 09:45-0500 Diastolic blood pressure 77 mm[Hg] Maldonado Ulloa Other [facility] Other 06-01-2021 09:45-0500 Respiratory rate 18 /min Maldonado Ulloa Other [facility] Other 06-01-2021 09:45-0500 SaO2% (BldA) [Mass fraction] 100 % Maldonado Ulloa Other [facility] Other 06-01-2021 09:45-0500 Systolic blood pressure 111 mm[Hg] Maldonado Ulloa Other [facility] Other 04-20-2021 09:45-0500 Body height 172.09 cm Maldonado Ulloa . Other [facility] Other 04-20-2021 09:45-0500 Body mass index (BMI) [Ratio] 33.48 kg/m2 Maldonado Ulloa . Other [facility] Other 04-20-2021 09:45-0500 Body weight 99.16 kg Maldonado Ulloa . Other [facility] Other 04-20-2021 09:45-0500 Diastolic blood pressure 77 mm[Hg] Maldonado Ulloa . Other [facility] Other 04-20-2021 09:45-0500 Respiratory rate 18 /min Maldonado Galvanedie Mccoy. Other [facility] Other 04-20-2021 09:45-0500 SaO2% (BldA) [Mass fraction] 100 % Maldonado Galvanedie Mccoy. Other [facility] Other 04-20-2021 09:45-0500 Systolic blood pressure 105 mm[Hg] Maldonado Ulloa . Other [facility] Other 02-23-2021 09:15-0400 Body height 172.09 cm Maldonado Ulloa . Other [facility] Other 02-23-2021 09:15-0400 Body mass index (BMI) [Ratio] 35.46 kg/m2 Maldonado Ulloa . Other [facility] Other 02-23-2021 09:15-0400 Body weight 105.01 kg Maldonado Ulloa . Other [facility] Other 02-23-2021 09:15-0400 Diastolic blood pressure 74 mm[Hg] Maldonado Ulloa Jr. Other [facility] Other 02-23-2021 09:15-0400 Respiratory rate 18 /min Maldonado Ulloa Jr. Other [facility] Other 02-23-2021 09:15-0400 SaO2% (BldA) [Mass fraction] 99 % Maldonado Ulloa Jr. Other [facility] Other 02-23-2021 09:15-0400 Systolic blood pressure 108 mm[Hg] Maldonado Ulloa Jr. Other [facility] Other 02-17-2020 16:30-0400 BP Diastolic 67 mm[Hg] [facility] [place] 02-17-2020 16:30-0400 BP Systolic 126 mm[Hg] [facility] [place] 02-17-2020 16:20-0400 Body Temperature 97.11 [degF] [facility] , [place] 02-17-2020 16:20-0400 Pulse (Heart Rate) 68 /min [facility] [place] 02-17-2020 16:20-0400 Pulse Oximetry 100 % [facility] [place] 02-17-2020 16:20-0400 Respiratory Rate 16 /min [facility] [place] 02-17-2020 12:10-0400 BMI (Body Mass Index) 35.55 kg/m2 [facility] [place] 02-17-2020 12:10-0400 Body weight 102.97 kg Rayray [facility] [place] 02-17-2020 12:10-0400 Height 170.2 cm Rayray Hart [facility] , [place] 02-10-2020 08:06-0400 BMI (Body Mass Index) 35.62 kg/m2 St 1 [facility], [place] 02-10-2020 08:06-0400 Body Temperature 97.81 [degF] [facility] , [place] 02-10-2020 08:06-0400 Body weight 103.[address] 1 [facility] , [place] 02-10-2020 08:06-0400 BP Diastolic 77 mm[Hg] [facility] 1 [facility] , [place] 02-10-2020 08:06-0400 BP Systolic 109 mm[Hg] St 1 [facility] , [place] 02-10-2020 08:06-0400 Height 170.2 cm [facility] 1 [facility] , [place] 02-10-2020 08:06-0400 Pulse (Heart Rate) 79 /min St 1 [facility], [place] 02-10-2020 08:06-0400 Pulse Oximetry 100 % St 1 [facility] [place] 02-10-2020 08:06-0400 Respiratory Rate 12 /min [facility] 1 [facility], [place] Encounters Encounter Date Encounter Type Care Provider Facility Start: 07-12-2023 End: 07-12-2023 ambulatory Delmi Burnett Facility:[facility] Start: 07-12-2023 End: 07-12-2023 ambulatory MD Delmi Burnett Work Phone: [facility] Work Phone: Start: 07-12-2023 End: 07-12-2023 Patient encounter procedure MD Delmi Burnett Work Phone: [facility] Start: 06-08-2023 End: 06-09-2023 ambulatory ISMAEL Howard [facility] Start: 08-23-2022 End: 08-24-2022 ambulatory YVONNE LARA MD Facility:[id number] Start: 08-14-2022 End: 08-14-2022 ambulatory Glenys Murillo Facility:[facility] Start: 08-11-2022 End: 08-12-2022 ambulatory GLENYS MURILLO [facility] Start: 08-11-2022 End: 08-11-2022 Subsequent hospital visit by physician Glenys Murillo EMBALMER APPRENTICE - VETERINARY PHYSIOLOGIST Work Phone: [facility] Comment on above: 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 Start: 07-05-2022 End: 07-05-2022 ambulatory EMBALMER APPRENTICE Glenys Murillo Work Phone: [facility] Work Phone: Start: 07-05-2022 End: 07-05-2022 Patient encounter procedure EMBALMER APPRENTICE Glenys Murillo Work Phone: [facility] [place] Work Phone: Start: 12-14-2021 End: 12-14-2021 Patient encounter procedure Glenys Murillo EMBALMER APPRENTICE - VETERINARY PHYSIOLOGIST Work Phone: [facility] Start: 12-14-2021 End: 12-14-2021 Subsequent hospital visit by physician Glenys Murillo EMBALMER APPRENTICE - VETERINARY PHYSIOLOGIST Work Phone: [facility] Comment on above: Women's annual routi ne gynecological examination Start: 09-14-2021 End: 09-14-2021 ambulatory Maldonado Ulloa Other [facility] [facility] [facility] Other Start: 09-14-2021 Follow-up encounter Maldonado guerrero [facility] Start: 08-12-2021 [facility] Weight Management f/u Jenna Olson [facility] Start: 08-12-2021 End: 08-12-2021 ambulatory Jenna Olson Other [facility] Other Start: 08-09-2021 End: 08-09-2021 ambulatory Maldonado Ulloa Other [facility] Other Start: 08-09-2021 Telephone encounter Maldonado guerrero [facility] Start: 07-04-2021 End: 07-04-2021 ambulatory Maldonado Ulloa Other [facility] Other Start: 07-04-2021 Telephone encounter Maldonado Morochodiff [facility] Start: 06-20-2021 End: 06-20-2021 ambulatory Elva Martins Other [facility] Other Start: 06-20-2021 Telephone encounter Elva Baldwin [facility] Start: 06-01-2021 End: 06-01-2021 ambulatory Maldonadoleonardo Morochodiff Other [facility] Other Start: 06-01-2021 Follow-up encounter Maldonado Morochosheryl Simon [facility] Start: 04-20-2021 End: 04-20-2021 ambulatory Maldonado Ulloa Jr. Other [facility] Other Start: 04-20-2021 Follow-up encounter Maldonado jiménez [facility] Start: 03-29-2021 End: 03-29-2021 ambulatory Elva Martins Other [facility] Other Start: 03-29-2021 Telephone encounter Elva Baldwin [facility] Start: 03-07-2021 Telephone encounter Maldonado jiménez [facility] Start: 02-23-2021 Follow-up encounter Maldonado jiménez 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 Start: 06-07-2020 End: 06-07-2020 Subsequent hospital visit by physician Delmi Burnett [facility] Laboratory Comment on above: Vulval lesion; LGSIL on Pap smear of cervix Start: 05-03-2020 End: 05-03-2020 Subsequent hospital visit by physician Delmi Burnett [facility] Comment on above: ASCUS of cervix with negative high risk HPV Start: 02-17-2020 End: 02-17-2020 [facility] Start: 02-17-2020 End: 02-17-2020 Subsequent hospital visit by physician Rayray Hart Work Phone: [facility] Start: 02-13-2020 End: 02-13-2020 Subsequent hospital visit by physician Ronni Covid Screening Schedule [facility] Covid Screening Comment on above: Preop testing Start: 02-10-2020 End: 02-15-2020 Patient encounter procedure [facility] Start: 02-10-2020 End: 02-14-2020 Subsequent hospital visit by physician Jermaine Pat 1 [facility] Pre-Admit Testing Start: 01-21-2020 End: 01-24-2020 Patient encounter procedure [facility] Start: 11-04-2019 End: 11-05-2019 Patient encounter procedure ISMAEL Owen [facility] Start: 11-04-2019 End: 11-04-2019 Subsequent hospital visit by physician Delmi Burnett [facility] Comment on above: Women's annual routi ne gynecological examination Start: 03-25-2018 End: 03-26-2018 Patient encounter procedure MARU LAGUERREDENEISHA [facility] Procedures Date Procedure Procedure Detail Performing Clinician Start: 12-14-2021 Microscopic observat ion [Identifier] in Cervix by Cyto stain Glenys Murillo EMBALMER APPRENTICE - VETERINARY PHYSIOLOGIST Work Phone: Start: 12-02-2020 Microscopic observat ion [Identifier] in Cervix by Cyto stain Glenys Murillo EMBALMER APPRENTICE - VETERINARY PHYSIOLOGIST Work Phone: Start: 02-17-2020 DISCHARGE PATIENT RAYRAY [...] 02-10-2020 Blood count complete auto&auto difrntl wbc [place] [facility] Work Phone: Start: 01-21-2020 Ct orbit sella/post fossa/ear w/o contrast matrl RAYRAY ADAPPA Start: 11-04-2019 Screen pap by renard LI Start: 03-25-2018 HEPATITIS B SURFACE ANTIBODY MARU EDWARD Plan of Treatment Date Care Activity Detail Author Start: 03-21-2028 DTaP/Tdap/Td vaccine (2 - Td or Tdap) DTaP/Tdap/Td vaccine (2 - Td or Tdap) [facility] Start: 03-21-2028 DTaP/Tdap/Td vaccine (2 - Td) DTaP/Tdap/Td vaccine (2 - Td) [place] Start: 12-14-2026 Screening for malign ant neoplasm of cervix [facility] Start: 12-03-2025 Screening for malign ant neoplasm of cervix [facility] Start: 05-03-2025 Screening for malign ant neoplasm of cervix Cervical cancer screen [place], [place] Start: 12-14-2024 Screening for malign ant neoplasm of cervix Pap smear [facility] Start: 11-03-2024 Screening for malign ant neoplasm of cervix Cervical cancer screen [place], [place] Start: 12-03-2023 Screening for malign ant neoplasm of cervix Pap smear [facility] Start: 04-30-2023 Screening for malign ant neoplasm of cervix Cervical cancer screen [place], [place] Start: 08-22-2022 [facility] Start: 01-26-2022 Influenza vaccination Flu vaccine (# 1) [facility] Start: 12-26-2021 Influenza vaccination Flu vaccine (# 1) [facility] Start: 07-09-2021 COVID-19 Vaccine (4 - Booster for Moderna series) COVID-19 Vaccine (4 - Booster for Moderna series) [facility] Start: 06-07-2021 Depression Screen Depression Screen [facility] Start: 01-26-2021 Influenza vaccination Flu vaccine (# 1) [facility] Work Phone: Start: 07-26-2020 End: 07-26-2020 Office Visit 07/26/2020 Office Visit Obstetrics and Gynecology Ismael Li MD [address] [place] [address] [phone] [facility]ST[facility]YN[facility]OLOG[facility] Start: 05-03-2020 End: 05-03-2020 Office Visit 05/03/2020 Office Visit Obstetrics and Gynecology Ismael Li MD [address] [place] [address] [phone] [facility]ST[facility]OLOG[facility] Start: 02-17-2020 End: 02-17-2020 Hospital Encounter [facility] Comment on above: REMOVAL CHOLESTEATOM A Start: 01-27-2020 Influenza vaccination [place], [place] Start: 12-02-2019 End: 12-02-2019 Office Visit 12/02/2019 Office Visit Obstetrics and Gynecology Ismael Li MD [address] [place] [address] [phone] [facility]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 Start: 2016 Diabetes screen Diabetes screen [facility] Start: 2000 DTaP/Tdap/Td vaccine (1 - Tdap) DTaP/Tdap/Td vaccine (1 - Tdap) [place] Start: 11-14-1999 Hepatitis C screening Hepatitis C sc reen [facility] Start: 1993 Depression Screen Depression Screen [facility] Start: 1982 Varicella vaccine (1 of 2 - 2-dose childhood series) Varicella vaccine (1 of 2 - 2-dose childhood series) [facility] Start: 05-15-1982 COVID-19 Vaccine (#1) COVID-19 Vacci ne (#1) [facility] Start: 1981 Hepatitis C screening Hepatitis C sc reen [place], [place] End: 02-13-2020 COVID-19 Ambulatory COVID-19 Ambulatory Lab Routine Preop testing 1 Occurrences starting 02/13/2020 until 02/13/2020 [place] Comment on above: 1 Occurrences starti ng 02/13/2020 until 02/13/2020 COVID-19 Ambulatory COVID-19 Amb ulatory Lab Routine Preop testing 02/13/2020 7:21 AM EDT [place] End: 11-04-2019 Cytopathology procedure, preparation of smear, genital source PAP SMEAR Lab Routine Women's annual routine gynecological examination 1 Occurrences starting 11/04/2019 until 11/04/2019 [place] Comment on above: 1 Occurrences starti ng 11/04/2019 until 11/04/2019 End: 05-03-2020 Cytopathology procedure, preparation of smear, genital source PAP SMEAR Lab Routine ASCUS of cervix with negative high risk HPV 1 Occurrences starting 05/03/2020 until 05/03/2020 [place] Comment on above: 1 Occurrences starti ng 05/03/2020 until 05/03/2020 End: 12-02-2020 Cytopathology procedure, preparation of smear, genital source PAP SMEAR Lab Routine LGSIL on Pap smear of cervix 1 Occurrences starting 12/02/2020 until 12/02/2020 [facility] [employer] Phone: Comment on above: 1 Occurrences starti ng 12/02/2020 until 12/02/2020 End: 12-14-2021 Cytopathology procedure, preparation of smear, genital source PAP SMEAR Lab Routine Women's annual routine gynecological examination 1 Occurrences starting 12/14/2021 until 12/14/2021 [facility] Phone: Comment on above: 1 Occurrences starti ng 12/14/2021 until 12/14/2021 End: 08-11-2022 Cytopathology procedure, preparation of smear, genital source PAP SMEAR Lab Routine LGSIL on Pap smear of cervix 1 Occurrences starting 08/11/2022 until 08/11/2022 GISELLE PETTY [facility] Work Phone: Comment on above: 1 Occurrences starti ng 08/11/2022 until 08/11/2022 Oxygen therapy [[facility] Data Set] Initiate Oxygen Therapy Protocol Respiratory Care Routine Daily until discontinued starting 02/17/2020 [place] Comment on above: Daily until disconti nued starting 02/17/2020 Phase I & II - meter ed glucose Phase I & II - metered glucose Point of Care Testing Routine As Needed until discontinued starting 02/17/2020 [place] Comment on above: As Needed until disc ontinued starting 02/17/2020 Surgical Pathology Surgical Path ology Lab Routine Release Upon Ordering for 1 Occurrences starting 02/17/2020 [place] Comment on above: Release Upon Orderin g for 1 Occurrences starting 02/17/2020 End: 06-07-2020 Surgical Pathology [place], [place] Comment on above: 1 Occurrences starti ng 06/07/2020 until 06/07/2020 Immunizations Immunization Date Immunization Notes Care Provider Rai bonilla 03-06-2017 Influenza Vaccine, unspecified formulation [facility] , [place] 03-08-2016 Influenza Vaccine, unspecified formulation [place], [place] Payers Date Payer Category Payer Self-pay [id number] 2019 [employer] ( and others) [facility] xxxxxxxxxxx 2019-Present xxxxxxxxxxx [id number] 2019 [employer] ( and others) [id number] 2019 [employer] ( and others) [facility] [id number] 2019-Present [phone] [address] [place] [address] [id number] 2019 [employer] ( and others) [id number] 1981 Unknown [id number] 1981 Unknown [id number] 1981 Unknown [id number] 1981 Unknown [id number] 1981 Unknown [id number] 1981 Unknown [id number] 1981 Unknown [id number] [employer] ( and others) [id number] Unknown Other1 (STD) [id number] Unknown Insurance No Card [id number] Unknown [id number] Unknown [id number] Social History Date Type Detail Facility Start: 01-22-2014 End: 11-04-2019 Tobacco smoking status [facility] Start: 11-04-2019 End: 08-11-2022 Alcohol intake Current drinker of alcohol (finding) [facility] Start: 01-22-2014 Alcohol Comment social [facility] Start: 1980 Sex Assigned At Not on file [facility] Exposure to SARS-CoV-2 (event) Unable to assess Anita Cempra DOMINICK JEAN Start: 01-22-2014 End: 02-10-2020 Tobacco use and exposure Never used [facility]ita [facility] Exposure to SARS-CoV-2 (event) Not sure [facility]ita [facility] Sex Assigned At Sex Assigned At Bir th [facility] [facility] Other Start: 1980 Sex Assigned At Female F [facility] Clinical Notes 02-23-2021 to 09-14-2021 Note Date & Type Note Facility 09-14-2021 Evaluation note Encounter Date Diagnosis Assessment Notes Aug, Mixed hyperlipidemia (ICD-10 - E78.2) Aug, Obesity (BMI 30.0-34.9) (ICD-10 - E66.9) Aug, Vitamin D deficiency (ICD-10 - E55.9) Aug, Anxiety (ICD-10 - F41.9) Aug, Encounter for medication management (ICD-10 - Z79.899) [facility] Other 03-18-2022 Evaluation note* Encounter Date Diagnosis [...] was counseling done by myself, Danielle TROTTER. [facility] Other 11-24-2021 Evaluation note* Encounter Date Diagnosis Assessment Notes Treatment Notes Treatment Clinical Notes Mar, Mixed hyperlipidemia (ICD-10 - E78.2) Mar, Obesity (BMI 30.0-34.9) (ICD-10 - E66.9) Mar, Anxiety (ICD-10 - F41.9) [facility] Other 09-29-2021 Evaluation note* Encounter Date Diagnosis Assessment Notes Treatment Notes Treatment Clinical Notes Jan, Mixed hyperlipidemia (ICD-10 - E78.2) Jan, Obesity (BMI 35.0-39.9 without comorbidity) (ICD-10 - E66.9) Jan, Anxiety (ICD-10 - F41.9) [facility] Other Evaluation note* Diagnosis LGSIL on Pap smear of cervix documented in this encounter [employer] Phone: evaluation noteNo InformationNort [facility] Other Evaluation noteNort [facility] Other Evaluation note* Diagnosis Women's annual routine gynecological examination documented in this encounter [employer] Work Phone: evaluation noteNo assessment information available [facility] Work Phone: Evaluation note* Diagnosis LGSIL on Pap smear of cervix documented in this encounter [employer] Work Phone: History general Narrative - Reported* Type Description Date Medical History anxiety Surgical History Right Ear Surgery [facility] Other History general [facility] Other Summary Purpose Family History No Family History Records Found Relationship Condition Age at Onset Recorded Date/T haylie father Malignant neoplasm Unknown Malignant neoplasm of urinary bladder Unk nown Unknown Not Specified Malignant neoplasm Unknown Advance Directives No Advanced Directives Records FoundDocuments on File Type Date Recorded Patient Director Of Online Education Expl anation Advance Directives and Living Will Power of Construction Teacher Documents on File Type Date Recorded Patient Director Of Online Education Expl anation ACP-Advance Directive ACP-Power of Construction Teacher Documents on File Type Date Recorded Patient Director Of Online Education Expl anation ACP-Advance Directive ACP-Power of Construction Teacher Advance Directive Response Recorded Date/ Time Advance [...] powder, deodorant, jewelry, piercings, perfume, makeup, nail irish, hair accessories, or hair spray on the day of surgery. Wear loose comfortable clothing. 3. Leave your valuables at home. Bring a storage case for any glasses/contacts. 4. An adult who is responsible for you MUST drive you home and should be with you for the first 24 hours after surgery. The Day of Surgery: Arrive at [facility] Surgery Entrance at the time directed by your surgeon and check in at the desk. If you have a living will or healthcare power of strategic analyst, please bring a copy. You will be taken to the pre-op holding area where you will be prepared for surgery. A physical assessment will be performed by a nurse practitioner or dye house supervisor. Your IV will be started and you [...] for Visit Chief Complaint R53.83 R53.81 Z00.00 Chief Complaint Z00.00 Additional Source Comments INFORMATION SOURCE (unrecogn ized section and content) DATE CREATED AUTHOR 05/24/2018 [facility] DATE CREATED AUTHOR AUTHOR'S ORGANIZ ATION 12/13/2019 [facility] Donny Prieto [facility] DATE CREATED AUTHOR AUTHOR'S ORGANIZ ATION 02/20/2020 [facility] DATE CREATED AUTHOR AUTHOR'S ORGANIZ ATION 08/26/2022 [facility] DATE CREATED AUTHOR AUTHOR'S ORGANIZ ATION 06/27/2023 [facility] [place] Mayte glez DATE CREATED AUTHOR AUTHOR'S ORGANIZ ATION 07/27/2023 [facility] Reason for Visit (unrecogniz ed section and content) Status Reason Specialty Diagnoses / Procedures Referre d By Contact Referred To Contact Diagnoses 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 Procedures [place] EXC SKIN BENIG <5MM FACE,FACIAL REMOVAL CHOLESTEATOMA Adappa, Rayray, MD [address] [address] [facility] Care Teams (unrecognized sec tion and content) Seed Pot[employer] Relationship Specialty Start Date End Date Glenys Murillo, EMBALMER APPRENTICE - VETERINARY PHYSIOLOGIST [address] [place] [address] PCP - General Nurse Practitioner 12/02/20 Team Status: Inactive Member Role Status Dates Glenys Murillo APRN ZOO CARETAKER-C Primary Care Provider, Attending Provider Active Team Status: Active Member Role Status Dates Glenys Murillo APRN ZOO CARETAKER-C Primary Care Provider Active [employer] Relationship Specialty Start Date End Date Glenys Murillo EMBALMER APPRENTICE - VETERINARY PHYSIOLOGIST [address] [place] [address] PCP - General Nurse Practitioner 12/02/20 Team Status: Active Member Role Status Dates Delmi Burnett MD Primary Care Provider Active Team Status: Inactive Member Role Status Dates Delmi Burnett MD Primary Care Provide r, Attending Provider Active Start: July 12, 2023 End: July 12, 2023 Goals (unrecognized section and content) Goals may [...] BE BASED ON THE PRIMARY CLINICAL RECORDS. [employer] provides no warranty or guarantee of the accuracy or completeness of information in this document.
[2023-07-30] MEDS: LIDOCAINE HCL 1% 100 MG/10 ML MDV INJ (13:39)
[2023-07-30] MEDS: 0.9 % SODIUM CHLORIDE 500 ML, LIDOCAINE HCL 20 ML, SODIUM BICARBONATE 10 MEQ INJ (13:39)
== END 2023-07-30 12:47 | disposition home or self-care (01) ==
LOC: VC 12:47
PROVIDERS: Family Provider Family Medicine; PCP Radiology Diagnostic Radiology; Visit Provider Radiology Diagnostic Radiology
DX: I83.813 Varicose veins of bilateral lower extremities with pain (principal)
CPT/HCPCS: 36478

== ENCOUNTER 2023-08-06 14:26 | Outpatient (OUT) | payer OTHER, SELFPAY ==
--- NOTE | 2023-08-06 14:28 | VEIN_ITS ---
Patient Name: MARILOU COLÓN MR#: [id number] : 1980 Exam Date: 08/06/2023 Ordering Doctor: DR DONTA RIDDLE M.D. RADIOLOGY REPORT PROCEDURE: [facility] - OFFICE VISIT FOLLOW UP COMPARISON: None. PROGRESS NOTES: The patient reports no significant problems following intravenous laser ablation of the left small saphenous vein. The patient has worn her compression stockings. The patient did not require oral analgesics Physical exam demonstrates no erythema or warmth. No cellulitis or thrombophlebitis. No active ulceration. The left small saphenous vein cannot be palpated Review of the ultrasound performed the same day demonstrates occlusive thrombus extending throughout the treated left small saphenous vein with heat induced thrombus 3.1 mm from the saphenous popliteal junction period no deep vein thrombus. The patient expressed a desire to proceed with treatment of left leg incompetent varicose veins with micro foam chemical ablation. VEIN/[facility] Facility EST LMTD IMPRESSION: 1. Successful ablation of the left small saphenous vein with heat induced thrombus 3.1 mm from the saphenous popliteal junction 2. Persistent incompetent left leg varicose veins. PLAN: 1. 325 milligram enteric coated aspirin once per day for the next 14 days 2. Micro foam chemical ablation left leg incompetent varicose veins Nurse notes, history and physical were reviewed and confirmed, see attached forms. The nurse was present throughout the physical exam and consultation Dictated by: Donta Riddle MD on 08/06/2023 at 15:10 Approved by: Donta Riddle MD on 08/06/2023 at 15:11
--- NOTE | 2023-08-06 14:28 | VEIN_ITS ---
Patient Name: MARILOU COLÓN MR#: [id number] : 1980 Exam Date: 08/06/2023 Ordering Doctor: DR DONTA RIDDLE M.D. RADIOLOGY REPORT PROCEDURE: VC EXT VENOUS LT LIMITED COMPARISON: None. INDICATIONS: Phlebitis of superficial veins of left lower extremity I80.02 TECHNIQUE: Lower extremity ramirez scale and Duplex Doppler evaluation of the deep venous system from the inguinal ligament through the calf veins. FINDINGS: REGION: Right lower extremity. THROMBI: Negative for DVT. Heat induced thrombus in left SSV 3.1 mm from SPJ and extends to distal lower leg/heel. COMPRESSIBILITY: Non-compressible segments corresponding to thrombus FLOW: Areas of no flow corresponding to thrombus CONCLUSION: Post ablation occlusion of the left small saphenous vein with heat induced thrombus 3.1 mm from the saphenopopliteal junction Dictated by: Donta Riddle MD on 08/06/2023 at 14:49 Approved by: Donta Riddle MD on 08/06/2023 at 14:52
== END 2023-08-06 14:27 | disposition home or self-care (01) ==
LOC: VC 14:26
PROVIDERS: Family Provider Family Medicine; PCP Radiology Diagnostic Radiology; Visit Provider Radiology Diagnostic Radiology
DX: I80.02 Phlebitis and thrombophlebitis of superficial vessels of left lower extremity (principal)
CPT/HCPCS: 93971; G0463

== ENCOUNTER 2023-08-10 10:35 | Outpatient (OUT) | payer OTHER, SELFPAY ==
--- NOTE | 2023-08-10 10:37 | VEIN_ITS ---
[address] [address] Patient Name: MARILOU COLÓN MRN: [id number] date: 1980 Sex: F Assigned Patient Location: Current Patient Location: Accession/Order Number: [id number] Exam Date: 08/10/2023 10:52 Report Date: 08/10/2023 12:04 At the request of: YVONNE RIDDLE Procedure: VC INJ Foam Sclerosant WUS MANUFA[employer]URING INTERN PROCEDURE: VC INJ Foam Sclerosant WUS MANUFA[employer]URING INTERN HISTORY: I83.813 Bilateral painful varicose veins Pre-operative Diagnosis: CEAP class C3 venous insufficiency with pain, tenderness, edema and incompetent branch saphenous vein(s), chronic venous insufficiency left leg secondary to venous incompetence Post-operative Diagnosis: CEAP class C3 venous insufficiency with pain, tenderness, edema and incompetent branch saphenous vein(s), chronic venous insufficiency left leg secondary to venous incompetence Procedure Performed: 1. Ultrasound-guided microfoam chemical ablation with Varithenaregistered 2. Intraoperative ultrasound guidance Physician: Dennis Nobles M.D. Anesthesia: None Indications for Procedure: 42 year old female. Symptoms including lower extremity pain, heaviness, throbbing, dilated bulging veins for many years despite conservative medical therapy including medical compression stockings, exercise and analgesics. Prior procedures include endovenous laser ablation. Multiple incompetent varicosities of the left leg. Duplex scan showed reflux and enlarged diameters up to 5 mm. The patient underwent informed consent including management options where the complications of infection, bleeding, pain, and skin injury were discussed. Particular attention was spent discussing thrombus extension and deep vein thrombosis as well as the possibility of pulmonary embolus and treatment with oral or injectable blood thinners. Procedure: The patient walked to the procedure room. All applicable staff donned appropriate apparel. A procedure timeout was performed to confirm correct patient, correct extremity, correct procedure, and correct room set-up including presence of all applicable supplies, devices, and drugs. A duplex ultrasound, performed by myself confirmed the location and incompetence of branch saphenous varicosities and their course was marked on the skin together with the dilated tributaries. The extent of treatment of the vein and the associated varicosities was determined through ultrasound mapping. The skin was prepped and then punctured with a butterfly needle and advanced under ultrasound guidance. The Varithenaregistered canister was activated and the canister was primed and purged as required in the instructions for use. Varithenaregistered was drawn into a sterile syringe. Varithenaregistered was slowly administered at 0.5-1.0 cc/second with close observation by ultrasound of its course in the vessels. Total volume utilized was: 14 mL (5 mL into a 3.5 mm varicosity mid medial lower left leg; 7 mL into a 5 mm varicosity mid anterior thigh; 2 mL into a 3.5 mm varicosity mid lateral lower leg). Following administration of Varithenaregistered the leg was elevated and the patient was asked to repeatedly dorsiflex the ankle to limit flow of Varithenaregistered into perforating veins. Once appropriate spasm had been confirmed in the treated veins, the vascular catheter was removed from the leg and light pressure was applied over the puncture site for hemostasis. The common femoral and deep superficial veins were then evaluated for flow and compressibility prior to dressing placement. The lower extremity was kept elevated at 45 degrees above the horizontal and cording material was applied over the saphenous segments and tributaries to allow for eccentric compression over the target vessels including the targeted saphenous vein(s). A multilayer dressing was applied consisting of foam pads, coban and thigh-high 20-30 mm Hg compression elastic support hose were placed on the patient. The leg was lowered only after compression had been applied and the patient was immediately ambulatory. The patient ambulated 10 minutes under supervision and was without apparent concerns at time of release. Post-care instructions include advising patient to keep post-treatment bandages in place and dry for 48 hours, avoid extended periods of inactivity, avoid heavy exercise for one week, wear compression stockings on the treated leg continuously for two weeks, to walk daily for 10 minutes over the next month. The patient was instructed to take an anti-inflammatory medicine as needed and to follow up for color duplex scan of the Saphenous veins, the treated branch saphenous varicosities, the adjacent deep veins, and additional treatment within 7 days. PERSONNEL: Bijal King RN Electronically authenticated by: DENNIS NOBLES Date: 08/10/2023 12:04
--- OUTSIDE RECORDS SUMMARY | 2023-08-10 10:45 | XMS_ITS | CCD ---
Author Name Unknown Address [address] [place] [address] Organization [facility] Care Team Providers Care Diaper Machine Tender Name Role Phone MARU EDWARD Unavailable Unavailable DELMI BURNETT Unavailable Unavailable Delmi Burnett Primary Care Provider ISMAEL LI Referring Unavailable DELMI BURNETT Primary Care Unavailable Delmi Burnett Primary Care Provider ADAPPA, RAYRAY Referring Unavailable DELMI BURNETT Primary Care Unavailable ADAPPA, RAYRAY Referring Unavailable DELMI BURNETT Primary Care Unavailable ADAPPA, RAYRAY Admitting Unavailable ADAPPA, RAYRAY Attending Unavailable DELMI BURNETT Primary Care Unavailable Michael STERILE TECH - NIB FINISHER, [place]ys Ofelia Primary Care Pr ovider Maldonado Ulloa Jr. Unavailable Elva Martins Unavailable Maldonado Ulloa Unavailable Jenna Olson Unavailable Michael STERILE TECH - NIB FINISHER, Glenys Ofelia Primary Care Pr ovider INDIA Murilloa Ofelia Primary Care Provider INDIA Murillo Attending Provider Michael STERILE TECH - NIB FINISHER, Glenys Ofelia Primary Care Pr ovider YVONNE [...] te Episodic/Chronic Other aftercare (3 sources) Other terminal block assembler (current) drug therapy Onset: 06-01-2021 Resolved: 09-14-2021 Episodic Other nervous system disorders (2 sources) Paresthesia of skin Onset: 06-01-2021 Resolved: 08-12-2021 Episodic Results Test Name Value Interpretation Reference Range Facility Alanine aminotransferase [En zymatic activity/volume] in Serum or PlasmaOrdered By: Delmi Burnett on 07-12-2023 ALT [Catalytic activity/Vol] 14 U/L 7-52 [facility] Albumin [Mass/volume] in Ser um or Plasma by Bromocresol green (BCG) dye binding methoOrdered By: Delmi Burnett on 07-12-2023 Albumin BCG dye [Mass/Vol] 4.2 g/dL 3.5-5.7 [facility] Alkaline phosphatase [Enzyma tic activity/volume] in Serum or PlasmaOrdered By: Delmi Burnett on 07-12-2023 ALP [Catalytic activity/Vol] 68 U/L 34-104 [facility] Aspartate aminotransferase [ Enzymatic activity/volume] in Serum or PlasmaOrdered By: Delmi Burnett on 07-12-2023 AST [Catalytic activity/Vol] 17 U/L 13-39 [facility] Basophils Auto (Bld) [#/Vol] Ordered By: Delmi Burnett on 07-12-2023 Basophils (Bld) [#/Vol] 0.1 10*3/uL 0.0-0.2 [facility] Basophils/100 WBC Auto (Bld) Ordered By: Delmi Burnett on 07-12-2023 Basophils/100 WBC (Bld) 1.0 % . [facility] Bilirubin.total [Mass/volume ] in Serum or PlasmaOrdered By: Delmi Burnett on 07-12-2023 Bilirubin [Mass/Vol] 0.5 mg/dL 0.3-1.0 [facility] Calcium [Mass/volume] in Ser um or PlasmaOrdered By: Delmi Burnett on 07-12-2023 Calcium [Mass/Vol] 9.1 mg/dL 8.6-10.3 [facility] Carbon dioxide, total [Moles /volume] in Serum or PlasmaOrdered By: Delmi Burnett on 07-12-2023 CO2 [Moles/Vol] 29.0 mmol/L 21.0-31.[address] [facility] Chloride [Moles/volume] in S fermin or PlasmaOrdered By: Delmi Burnett on 07-12-2023 Chloride [Moles/Vol] 106 mmol/L 98-107 [facility] Cholesterol [Mass/volume] in Serum or PlasmaOrdered By: Delmi Burnett on 07-12-2023 Cholesterol [Mass/Vol] 190 mg/dL 140-200 [facility] Comment on above: Chol less than 200 m g/dl low riskChol 201-239 mg/dl borderline riskChol 240 mg/dl and greater high risk Cholesterol in LDL Calc [Mas s/Vol]Ordered By: Delmi Burnett on 07-12-2023 Cholesterol in LDL [Mass/Vol] 111 mg/dL 0-100 [facility] Comment on above: LDL ATP III CLASSIFI CATIONLDL less than 100 mg/dL OptimalLDL 100-129 mg/dL Near or above optimalLDL 130-159 mg/dL Borderline highLDL 160-189 mg/dL HighLDL greater than 189 mg/dL Very high Cholesterol in VLDL Calc [Ma ss/Vol]Ordered By: Delmi Burnett on 07-12-2023 Cholesterol in VLDL [Mass/Vol] 20 mg/dL [facility] Complete Blood Count Auto Di ffon 07-12-2023 Basophils (Bld) [#/Vol] 0.1 10*3/uL Normal 0.0-0.2 [facility] Comment on above: Result Comment: PERF ORMED BY: [facility] [address] [place] [address] PATHOLOGIST RECRUITING INTERN MIKALA ENGLAND M.D. Performed By: #### C MP, TSH3, LIPID, T4F, CBC #### [address] Basophils/100 WBC (Bld) 1.0 % Normal . [facility] Comment on above: Performed By: #### C MP, TSH3, LIPID, T4F, CBC #### [address] Eosinophils (Bld) [#/Vol] 0.1 10*3/uL Normal 0.0-0.45 [facility] Comment on above: Performed By: #### C MP, TSH3, LIPID, T4F, CBC #### [address] Eosinophils/100 WBC (Bld) 2.0 % Normal . [facility] Comment on above: Performed By: #### C MP, TSH3, LIPID, T4F, CBC #### [address] Erythrocyte distribution width (RBC) [Ratio] 14.5 % Normal 11.9-15.3 [facility] Comment on above: Performed By: #### C MP, TSH3, LIPID, T4F, CBC #### [address] Hematocrit (Bld) [Volume fraction] 38.8 % Normal 34.0-46.4 [facility] Comment on above: Performed By: #### C MP, TSH3, LIPID, T4F, CBC #### [address] Hemoglobin (Bld) [Mass/Vol] 12.9 g/dL Normal 11.8-15.4 [facility] Comment on above: Performed By: #### C MP, TSH3, LIPID, T4F, CBC #### [address] Lymphocytes (Bld) [#/Vol] 1.7 10*3/uL Normal 1.00-4.8 [facility] Comment on above: Performed By: #### C MP, TSH3, LIPID, T4F, CBC #### [address] Lymphocytes/100 WBC (Bld) 27.9 % Normal . [facility] Comment on above: Performed By: #### C MP, TSH3, LIPID, T4F, CBC #### [address] MCH (RBC) [Entitic mass] 30.4 pg Normal 24.7-34.3 [facility] Comment on above: Performed By: #### C MP, TSH3, LIPID, T4F, CBC #### [address] MCV (RBC) [Entitic vol] 91.3 fL Normal 80-[address] [facility] Comment on above: Performed By: #### C MP, TSH3, LIPID, T4F, CBC #### [address] Mean Corpuscular HGB Conc 33.3 g/dL Normal 32.0-35.0 [facility] Comment on above: Performed By: #### C MP, TSH3, LIPID, T4F, CBC #### [address] Monocytes (Bld) [#/Vol] 0.4 10*3/uL Normal 0.0-0.8 [facility] Comment on above: Performed By: #### C MP, TSH3, LIPID, T4F, CBC #### [address] Monocytes/100 WBC (Bld) 6.5 % Normal . [facility] Comment on above: Performed By: #### C MP, TSH3, LIPID, T4F, CBC #### [address] Neutrophils (Bld) [#/Vol] 3.8 10*3/uL Normal 1.8-7.7 [facility] Comment on above: Performed By: #### C MP, TSH3, LIPID, T4F, CBC #### [address] Neutrophils/100 WBC (Bld) 62.6 % Normal . [facility] Comment on above: Performed By: #### C MP, TSH3, LIPID, T4F, CBC #### [address] NRBC% 0.1 /100{WBC} Normal 0-0.5 [facility] Comment on above: Performed By: #### C MP, TSH3, LIPID, T4F, CBC #### [address] Platelet mean volume (Bld) [Entitic vol] 8.7 fL Normal 6.3-10.7 [facility] Comment on above: Performed By: #### C MP, TSH3, LIPID, T4F, CBC #### [address] Platelets (Bld) [#/Vol] 285 10*3/uL Normal 150-450 [facility] Comment on above: Performed By: #### C MP, TSH3, LIPID, T4F, CBC #### [address] RBC (Bld) [#/Vol] 4.25 10*6/uL Normal 3.60-5.00 [facility] Comment on above: Performed By: #### C MP, TSH3, LIPID, T4F, CBC #### [address] WBC (Bld) [#/Vol] 6.1 10*3/uL Normal 3.8-11.6 [facility] Comment on above: Performed By: #### C MP, TSH3, LIPID, T4F, CBC #### [address] Comprehensive Metabolic Pane lenora 07-12-2023 Albumin [Mass/Vol] 4.2 g/dL Normal 3.5-5.7 [facility] Comment on above: Performed By: #### C MP, TSH3, LIPID, T4F, CBC #### [facility] [address] [place] [address] Albumin/Globulin [Mass ratio] 1.6 {ratio} Normal [facility] Comment on above: Performed By: #### C MP, TSH3, LIPID, T4F, CBC #### [facility] [address] [place] [address] ALP [Catalytic activity/Vol] 68 U/L Normal 34-104 [facility] Comment on above: Performed By: #### C MP, TSH3, LIPID, T4F, CBC #### [address] ALT [Catalytic activity/Vol] 14 U/L Normal 7-52 [facility] Comment on above: Performed By: #### C MP, TSH3, LIPID, T4F, CBC #### [address] Anion gap [Moles/Vol] 7.5 mmol/L Normal 6.0-15.0 [facility] Comment on above: Performed By: #### C MP, TSH3, LIPID, T4F, CBC #### [address] AST [Catalytic activity/Vol] 17 U/L Normal 13-39 [facility] Comment on above: Performed By: #### C MP, TSH3, LIPID, T4F, CBC #### [address] Bilirubin [Mass/Vol] 0.5 mg/dL Normal 0.3-1.0 [facility] Comment on above: Performed By: #### C MP, TSH3, LIPID, T4F, CBC #### [address] Calcium [Mass/Vol] 9.1 mg/dL Normal 8.6-10.3 [facility] Comment on above: Performed By: #### C MP, TSH3, LIPID, T4F, CBC #### [facility] [address] Chloride [Moles/Vol] 106 mmol/L Normal 98-107 [facility] Comment on above: Performed By: #### C MP, TSH3, LIPID, T4F, CBC #### [address] CO2 [Moles/Vol] 29.0 mmol/L Normal 21.0-31.[address] [facility] Comment on above: Performed By: #### C MP, TSH3, LIPID, T4F, CBC #### [address] Creatinine [Mass/Vol] 0.69 mg/dL Normal 0.60-1.20 [facility] Comment on above: Performed By: #### C MP, TSH3, LIPID, T4F, CBC #### [address] GFR/1.73 sq M.predicted MDRD (S/P/Bld) [Vol rate/Area] mL/min/{1.73_m2} Normal [facility] Comment on above: Performed By: #### C MP, TSH3, LIPID, T4F, CBC #### [address] Globulin (S) [Mass/Vol] 2.6 g/dL Normal [facility] Comment on above: Performed By: #### C MP, TSH3, LIPID, T4F, CBC #### [address] Glucose [Mass/Vol] 88 mg/dL Normal 70-100 [facility] Comment on above: Result Comment: [place] Glucose Reference Range is dependent on time and content of last meal. Glucose of more than 200 mg/dL in a nonstressed, ambulatory subject supports the diagnosis of Diabetes Mellitus. ADA recommended reference range Performed By: #### C MP, TSH3, LIPID, T4F, CBC #### [address] Potassium [Moles/Vol] 4.5 mmol/L Normal 3.5-5.1 [facility] Comment on above: Performed By: #### C MP, TSH3, LIPID, T4F, CBC #### [facility] [address] Protein [Mass/Vol] 6.8 g/dL Normal 6.4-8.9 [facility] Comment on above: Performed By: #### C MP, TSH3, LIPID, T4F, CBC #### [facility] [address] Sodium [Moles/Vol] 138 mmol/L Normal 136-145 [facility] Comment on above: Performed By: #### C MP, TSH3, LIPID, T4F, CBC #### [facility] [address] Urea nitrogen [Mass/Vol] 16 mg/dL Normal 7-25 [facility] Comment on above: Performed By: #### C MP, TSH3, LIPID, T4F, CBC #### [address] Creatinine [Mass/volume] in Serum or PlasmaOrdered By: Delmi Burnett on 07-12-2023 Creatinine [Mass/Vol] 0.69 mg/dL 0.60-1.20 [facility] Eosinophils Auto (Bld) [#/Vo l]Ordered By: Delmi Burnett on 07-12-2023 Eosinophils (Bld) [#/Vol] 0.1 10*3/uL 0.0-0.45 [facility] Eosinophils/100 WBC Auto (Bl d)Ordered By: Delmi Burnett on 07-12-2023 Eosinophils/100 WBC (Bld) 2.0 % . [facility] Erythrocyte distribution wid th Auto (RBC) [Ratio]Ordered By: Delmi Burnett on 07-12-2023 Erythrocyte distribution width (RBC) [Ratio] 14.5 % 11.9-15.3 [facility] Free T4 (Free Thyroxine)on 0 07-12-2023 Free T4 [Mass/Vol] 0.61 ng/dL Normal 0.61-1.12 [facility] Comment on above: Performed By: #### C MP, TSH3, LIPID, T4F, CBC #### [facility] [address] Globulin Calc (S) [Mass/Vol] Ordered By: Delmi Burnett on 07-12-2023 Globulin (S) [Mass/Vol] 2.6 g/dL [facility] Glucose [Mass/volume] in Ser um or PlasmaOrdered By: Delmi Burnett on 07-12-2023 Glucose [Mass/Vol] 88 mg/dL 70-100 [facility] Comment on above: ADA recommended refe rence rangeRandom Glucose Reference Range is dependent on time and content of last meal. Glucose of more than 200 mg/dL in a nonstressed, ambulatory subject supports the diagnosis of Diabetes Mellitus. Hematocrit Auto (Bld) [Volum e fraction]Ordered By: Delmi Burnett on 07-12-2023 Hematocrit (Bld) [Volume fraction] 38.8 % 34.0-46.4 [facility] Hemoglobin [Mass/volume] in BloodOrdered By: Delmi Burnett on 07-12-2023 Hemoglobin (Bld) [Mass/Vol] 12.9 g/dL 11.8-15.4 [facility] Leukocytes [#/volume] correc evelio for nucleated erythrocytes in Blood by Automated counOrdered By: Delmi Burnett on 07-12-2023 WBC corrected for nucl RBC Auto (Bld) [#/Vol] 6.1 10*3/uL 3.8-11.6 [facility] Lipid Panelon 07-12-2023 Cholesterol [Mass/Vol] 190 mg/dL Normal 140-200 [facility] Comment on above: Result Comment: Chol less than 200 mg/dl low risk Chol 201-239 mg/dl borderline risk Chol 240 mg/dl and greater high risk Performed By: #### C MP, TSH3, LIPID, T4F, CBC #### [facility] [address] [place] [id number] [facility] Cholesterol in HDL [Mass/Vol] 59 mg/dL Normal 23-92 [facility] Comment on above: Result Comment: HDL CHOL ATP-III CLASSIFICATION Cardiovascular Risk HDL > or equal to 60 mg/dL LOW HDL < 40 mg/dL HIGH Performed By: #### C MP, TSH3, LIPID, T4F, CBC #### [facility] [address] Cholesterol.total/Choles terol in HDL [Mass ratio] 3.2 {ratio} Normal <5.0 [facility] Comment on above: Performed By: #### C MP, TSH3, LIPID, T4F, CBC #### [facility] [address] LDL Cholesterol,Calculated 111 mg/dL High 0-100 [facility] Comment on above: Result Comment: LDL ATP III CLASSIFICATION LDL less than 100 mg/dL Optimal LDL 100-129 mg/dL Near or above optimal LDL 130-159 mg/dL Borderline high LDL 160-189 mg/dL High LDL greater than 189 mg/dL Very high Performed By: #### C MP, TSH3, LIPID, T4F, CBC #### [facility] [address] Triglyceride w/Reflex 102 mg/dL Normal 0-149 [facility] Comment on above: Result Comment: TRIG ATP III CLASSIFICATION TRIG less than 150 mg/dL Normal TRIG 150-199 mg/dL Borderline high TRIG 200-500 mg/dL High TRIG greater than 500 mg/dL Very high Standard traceable to the Center for Disease Conrtrol and Prevention (CDC) test method. Performed By: #### C MP, TSH3, LIPID, T4F, CBC #### [facility] [address] VLDL CHOLESTEROL 20 mg/dL Normal [facility] Comment on above: Performed By: #### C MP, TSH3, LIPID, T4F, CBC #### [facility] [address] Lymphocytes Auto (Bld) [#/Vo l]Ordered By: Delmi Burnett on 07-12-2023 Lymphocytes (Bld) [#/Vol] 1.7 10*3/uL 1.00-4.8 [facility] Lymphocytes/100 WBC Auto (Bl d)Ordered By: Delmi Burnett on 07-12-2023 Lymphocytes/100 WBC (Bld) 27.9 % . [facility] MCH Auto (RBC) [Entitic mass ]Ordered By: Delmi Burnett on 07-12-2023 MCH (RBC) [Entitic mass] 30.4 pg 24.7-34.3 [facility] MCHC Auto (RBC) [Mass/Vol]Or dered By: Delmi Burnett on 07-12-2023 MCHC (RBC) [Mass/Vol] 33.3 g/dL 32.0-35.0 [facility] MCV Auto (RBC) [Entitic vol] Ordered By: Delmi Burnett on 07-12-2023 MCV (RBC) [Entitic vol] 91.3 fL 80-[address] [facility] Monocytes Auto (Bld) [#/Vol] Ordered By: Delmi Burnett on 07-12-2023 Monocytes (Bld) [#/Vol] 0.4 10*3/uL 0.0-0.8 [facility] Monocytes/100 WBC Auto (Bld) Ordered By: Delmi Burnett on 07-12-2023 Monocytes/100 WBC (Bld) 6.5 % . [facility] Neutrophils Auto (Bld) [#/Vo l]Ordered By: Delmi Burnett on 07-12-2023 Neutrophils (Bld) [#/Vol] 3.8 10*3/uL 1.8-7.7 [facility] Neutrophils/100 WBC Auto (Bl d)Ordered By: Delmi Burnett on 07-12-2023 Neutrophils/100 WBC (Bld) 62.6 % . [facility] No Panel InformationOrdered By: Delmi Burnett on 07-12-2023 Estimated GFR (CKD-EPI) > 60.0 mL/Min [facility] Creatinine Clearance (Chem N/A [facility] Nucleated erythrocytes [Pres ence] in Blood by Automated countOrdered By: Delmi Burnett on 07-12-2023 Nucleated RBC Auto Ql (Bld) 0.1 /100{WBC} 0-0.5 [facility] Platelet mean volume Auto (B ld) [Entitic vol]Ordered By: Delmi Burnett on 07-12-2023 Platelet mean volume (Bld) [Entitic vol] 8.7 fL 6.3-10.7 [facility] Platelets Auto (Bld) [#/Vol] Ordered By: Delmi Burnett on 07-12-2023 Platelets (Bld) [#/Vol] 285 10*3/uL 150-450 [facility] Potassium [Moles/volume] in Serum or PlasmaOrdered By: Delmi Burnett on 07-12-2023 Potassium [Moles/Vol] 4.5 mmol/L 3.5-5.1 [facility] Protein [Mass/volume] in Ser um or PlasmaOrdered By: Delmi Burnett on 07-12-2023 Protein [Mass/Vol] 6.8 g/dL 6.4-8.9 [facility] RBC Auto (Bld) [#/Vol]Ordere d By: Delmi Burnett on 07-12-2023 RBC (Bld) [#/Vol] 4.25 10*6/uL 3.60-5.00 [facility] Serum or plasma albumin/glob ulin mass ratioOrdered By: Delmi Burnett on 07-12-2023 Albumin/Globulin [Mass ratio] 1.6 {ratio} [facility] Serum or plasma anion gap de terminationOrdered By: Delmi Burnett on 07-12-2023 Anion gap [Moles/Vol] 7.5 mmol/L 6.0-15.0 [facility] Serum or plasma high density lipoprotein (HDL) cholesterol measurementOrdered By: Delmi Burnett on 07-12-2023 Cholesterol in HDL [Mass/Vol] 59 mg/dL 23-92 [facility] Comment on above: HDL CHOL ATP-III CLA SSIFICATION Cardiovascular RiskHDL > or equal to 60 mg/dL LOWHDL < 40 mg/dL HIGH Serum or plasma total choles terol/high density lipoprotein (HDL) cholesterol mass ratOrdered By: Delmi Burnett on 07-12-2023 Cholesterol.total/Choles terol in HDL [Mass ratio] 3.2 {ratio} <5.0 [facility] Sodium [Moles/volume] in Ser um or PlasmaOrdered By: Delmi Burnett on 07-12-2023 Sodium [Moles/Vol] 138 mmol/L 136-145 [facility] Thyroid Stimulating Hormoneo n 07-12-2023 TSH Qn 1.70 m[IU]/L Normal 0.45-5.33 [facility] Comment on above: Result Comment: PERF ORMED BY: [facility] [address] [place] [address] PATHOLOGIST RECRUITING INTERN MIKALA ENGLAND M.D. Performed By: #### C MP, TSH3, LIPID, T4F, CBC #### [facility] [address] Thyrotropin [Units/volume] i n Serum or PlasmaOrdered By: Delmi Burnett on 07-12-2023 TSH Qn 1.70 m[IU]/L 0.45-5.33 [facility] Thyroxine (T4) free [Mass/vo lume] in Serum or PlasmaOrdered By: Delmi Burnett on 07-12-2023 Free T4 [Mass/Vol] 0.61 ng/dL 0.61-1.12 [facility] Triglyceride [Mass/volume] i n Serum or PlasmaOrdered By: Delmi Burnett on 07-12-2023 Triglyceride [Mass/Vol] 102 mg/dL 0-[address] [facility] Comment on above: TRIG ATP III CLASSIF ICATIONTRIG less than 150 mg/dL NormalTRIG 150-199 mg/dL Borderline highTRIG 200-500 mg/dL High TRIG greater than 500 mg/dL Very highStandard traceable to the Center for Disease Conrtrol and Prevention (CDC) test method. Urea nitrogen [Mass/volume] in Serum or PlasmaOrdered By: Delmi Burnett on 07-12-2023 Urea nitrogen [Mass/Vol] 16 mg/dL 7-25 [facility] WBC Auto (Bld) [#/Vol]Ordere d By: Delmi Burnett on 07-12-2023 WBC (Bld) [#/Vol] 6.1 10*3/uL 3.8-11.6 [facility] HPV DNA High Riskon 06-26-19 24 HPV Interp Normal [facility] Comment on above: Result Comment: This [...] purposes. Performed By: #### H PVH #### [address] [address] Horse Riding Coach Or Instructor: Kane Lawson MD HPV Type 16 Not detected Normal [facility] Comment on above: Performed By: #### H PVH #### [address] [address] Horse Riding Coach Or Instructor: Kane Lawson MD HPV Type 18 Not detected [facility] Comment on above: Performed By: #### H PVH #### [address] [address] Horse Riding Coach Or Instructor: Kane Lawson MD Other High Risk HPV Not detected [facility] Comment on above: Performed By: #### H PVH #### [address] [address] Horse Riding Coach Or Instructor: Kane Lawson MD HPV DNA High Riskon 06-25-19 24 HPV Sample .THIN PREP [facility] Comment on above: Performed By: #### H PVH #### [address] [address] Horse Riding Coach Or Instructor: Kane Lawson MD Source CERVICAL MATERIAL Normal [facility] Comment on above: Performed By: #### H PVH #### [address] [address] Horse Riding Coach Or Instructor: Kane Lawson MD Cytology Reporton 06-08-2023 Cytology report Cyto stain.thin prep Doc (Cvx/Vag) (NOTE) Path Number: [id number] DIAGNOSIS Imaged ThinPrep Pap - Cervical (1 [...] or for other forensic purposes. Performed at [address] [address] ([phone] Source of Specimen: A: Imaged ThinPrep Pap - Cervical (1 monolayer slide) HPV Reflex?............... .......HPV if Abnormal Clinical History R87.610 Cytology smear of cervix with ASC-US Processing Lab: [address] [phone] Interpretation performed at [address] [phone] This Pap Test has been evaluated with [...] GYNECOLOGIC CYTOLOGY REPORT Patient Name: KOURTNEY RED [facility] Rec: [id number] [facility] ANATOMIC PATHOLOGY [address] [place] [phone] [facility] HPV DNA High Riskon 08-25-19 23 HPV Interp [facility] Comment on above: Result Comment: This test [...] purposes. Performed By: #### H PVH #### [address] [id number] Horse Riding Coach Or Instructor: Kane Lawson MD HPV Type 16 Not detected [facility] Comment on above: Performed By: #### H PVH #### [address] [address] Horse Riding Coach Or Instructor: Kane Lawson MD HPV Type 18 Not detected [facility] Comment on above: Performed By: #### H PVH #### [address] [address] Horse Riding Coach Or Instructor: Kane Lawson MD Other High Risk HPV Not detected [facility] Comment on above: Performed By: #### H PVH #### [address] [address] Horse Riding Coach Or Instructor: Kane Lawson MD HPV DNA High Riskon 08-22-19 23 HPV Sample .THIN PREP Normal [facility] Comment on above: Performed By: #### H PVH #### [employer] [address], [place] [id number] Horse Riding Coach Or Instructor: Kane Lawson MD Source CERVICAL MATERIAL Normal [facility] Comment on above: Performed By: #### H PVH #### [facility] [address], [place] [id number] Horse Riding Coach Or Instructor: Kane Lawson MD MM screening mammo BI w/CADo n 08-14-2022 MM screening mammo BI w/CAD [facility] [place] [address] Mammography Report Signed Patient: Kourtney Red MR#: [id number] 9 : 1980 Acct:[id number] Age/Sex: 41 / F ADM Date: 08/14/22 Loc: IN Room: Type: [facility] Attending Dr: Referral Self Copies to: SELF,REFERRAL Glenys Murillo APRN,NIB FINISHER Ordering Provider: SELF,REFERRAL Date of Service: 08/14/22 [...] Alphonso Dye M.D.08/14/2022 1:17 PM Dictation Location: [facility] Transcribed By: CITLALLI 08/14/22 1317 Dictated By: Alphonso Dye II, MD 08/14/22 1309 Signed By: 08/14/22 1317 [facility] Cytologyon 08-11-2022 Cytology (NOTE) INTERPRETATION Cervical material, (ThinPrep vial, Imaging-assisted review): Specimen Adequacy: Satisfactory for evaluation. - Endocervical/transform ation zone component present. Descriptive Diagnosis: Atypical squamous cells of undetermined significance (ASC-US). Stock Or Delivery Clerk: SYLVIA Garcia Electronically Signed Out ag/08/21/2022 Procedure/Addendum [...] GYNECOLOGIC CYTOLOGY REPORT Patient Name: KOURTNEY RED [facility] Rec: [id number] Path Number: [id number] [employer] [facility] ANATOMIC PATHOLOGY [address] [place] [phone] Normal [facility] Comment on above: Performed By: #### P PPVP #### [employer] [facility] [address] [place] [phone] Horse Riding Coach Or Instructor: Kane Lawson MD Albumin [Mass/volume] in Ser um or PlasmaOrdered By: Glenys Murillo on 07-05-2022 Albumin [Mass/Vol] 3.8 g/dL 3.2-5.5 [facility] Basophils Auto (Bld) [#/Vol] Ordered By: Glenys Murillo on 07-05-2022 Basophils (Bld) [#/Vol] 0.0 10*3/uL 0.0-0.2 [facility] Basophils/100 WBC Auto (Bld) Ordered By: Glenys Murillo on 07-05-2022 Basophils/100 WBC (Bld) 0.7 % . [facility] Cholesterol [Mass/volume] in Serum or PlasmaOrdered By: Glenys Murillo on 07-05-2022 Cholesterol [Mass/Vol] 169 mg/dL 140-200 [facility] Comment on above: Chol less than 200 m g/dl low riskChol 201-239 mg/dl borderline riskChol 240 mg/dl and greater high risk Cholesterol in LDL Calc [Mas s/Vol]Ordered By: Glenys Murillo on 07-05-2022 Cholesterol in LDL [Mass/Vol] 94 mg/dL 0-100 [facility] Comment on above: LDL ATP III CLASSIFI CATIONLDL less than 100 mg/dL OptimalLDL 100-129 mg/dL Near or above optimalLDL 130-159 mg/dL Borderline highLDL 160-189 mg/dL HighLDL greater than 189 mg/dL Very high Cholesterol in VLDL Calc [Ma ss/Vol]Ordered By: Glenys Murillo on 07-05-2022 Cholesterol in VLDL [Mass/Vol] 30 mg/dL [facility] Creatinine and Glomerular fi ltration rate.predicted panel (S/P/Bld)Ordered By: Glenys Murillo on 07-05-2022 Creatinine [Mass/Vol] 0.73 mg/dL 0.44-1.03 [facility] Eosinophils Auto (Bld) [#/Vo l]Ordered By: Glenys Murillo on 07-05-2022 Eosinophils (Bld) [#/Vol] 0.2 10*3/uL 0.0-0.45 [facility] Eosinophils/100 WBC Auto (Bl d)Ordered By: Glenys Murillo on 07-05-2022 Eosinophils/100 WBC (Bld) 3.1 % . [facility] Erythrocyte distribution wid th Auto (RBC) [Ratio]Ordered By: Glenys Murillo on 07-05-2022 Erythrocyte distribution width (RBC) [Ratio] 14.8 % 11.9-15.3 [facility] Estimated glomerular filtrat ion rate (GFR) non- AmericanOrdered By: Glenys Murillo on 07-05-2022 GFR/1.73 sq M.predicted among non-blacks MDRD (S/P/Bld) [Vol rate/Area] > 60 mL/Min [facility] Globulin Calc (S) [Mass/Vol] Ordered By: Glenys Murillo on 07-05-2022 Globulin (S) [Mass/Vol] 2.6 g/dL [facility] Hematocrit Auto (Bld) [Volum e fraction]Ordered By: Glenys Murillo on 07-05-2022 Hematocrit (Bld) [Volume fraction] 38.2 % 34.0-46.4 [facility] Hemoglobin [Mass/volume] in BloodOrdered By: Glenys Murillo on 07-05-2022 Hemoglobin (Bld) [Mass/Vol] 12.7 g/dL 11.8-15.4 [facility] Leukocytes [#/volume] correc evelio for nucleated erythrocytes in Blood by Automated counOrdered By: Glenys Murillo on 07-05-2022 WBC corrected for nucl RBC Auto (Bld) [#/Vol] 5.5 10*3/uL 3.8-11.6 [facility] Lymphocytes Auto (Bld) [#/Vo l]Ordered By: Glenys Murillo on 07-05-2022 Lymphocytes (Bld) [#/Vol] 1.5 10*3/uL 1.00-4.8 [facility] Lymphocytes/100 WBC Auto (Bl d)Ordered By: Glenys Murillo on 07-05-2022 Lymphocytes/100 WBC (Bld) 27.6 % . [facility] MCH Auto (RBC) [Entitic mass ]Ordered By: Glenys Murillo on 07-05-2022 MCH (RBC) [Entitic mass] 29.1 pg 24.7-34.3 [facility] MCHC Auto (RBC) [Mass/Vol]Or dered By: Glenys Murillo on 07-05-2022 MCHC (RBC) [Mass/Vol] 33.3 g/dL 32.0-35.0 [facility] MCV Auto (RBC) [Entitic vol] Ordered By: Glenys Murillo on 07-05-2022 MCV (RBC) [Entitic vol] 87.5 fL 80-[address] [facility] Monocytes Auto (Bld) [#/Vol] Ordered By: Glenys Murillo on 07-05-2022 Monocytes (Bld) [#/Vol] 0.4 10*3/uL 0.0-0.8 [facility] Monocytes/100 WBC Auto (Bld) Ordered By: Glenys Murillo on 07-05-2022 Monocytes/100 WBC (Bld) 7.0 % . [facility] Neutrophils Auto (Bld) [#/Vo l]Ordered By: Glenys Murillo on 07-05-2022 Neutrophils (Bld) [#/Vol] 3.4 10*3/uL 1.8-7.7 [facility] Neutrophils/100 WBC Auto (Bl d)Ordered By: Glenys Murillo on 07-05-2022 Neutrophils/100 WBC (Bld) 61.6 % . [facility] No Panel InformationOrdered By: Glenys Murillo on 07-05-2022 Estimated GFR () > 60 mL/Min [facility] Comment on above: GFR estimated refere nce range: According to KDOQI guidelines, <60 ml/min/1.73m2 is sufficient to diagnose a patient with chronic kidney disease. Pharmacy Creatinine Clearance (Chem N/A [facility] Nucleated erythrocytes [Pres ence] in Blood by Automated countOrdered By: Glenys Murillo on 07-05-2022 Nucleated RBC Auto Ql (Bld) 0.2 /100{WBC} 0-0.5 [facility] Platelet mean volume Auto (B ld) [Entitic vol]Ordered By: Glenys Murillo on 07-05-2022 Platelet mean volume (Bld) [Entitic vol] 8.5 fL 6.3-10.7 [facility] Platelets Auto (Bld) [#/Vol] Ordered By: Glenys Murillo on 07-05-2022 Platelets (Bld) [#/Vol] 270 10*3/uL 150-450 [facility] Protein [Mass/volume] in Ser um or PlasmaOrdered By: Glenys Murillo on 07-05-2022 Protein [Mass/Vol] 6.4 g/dL 6.1-7.9 [facility] RBC Auto (Bld) [#/Vol]Ordere d By: Glenys Murillo on 07-05-2022 RBC (Bld) [#/Vol] 4.36 10*6/uL 3.60-5.00 [facility] Serum or plasma alanine stockton otransferase measurement without P-5'-P (enzymatic activiOrdered By: Glenys Murillo on 07-05-2022 ALT No additional P-5'-P [Catalytic activity/Vol] 14 U/L 10-60 [facility] Serum or plasma albumin/glob ulin mass ratioOrdered By: Glenys Murillo on 07-05-2022 Albumin/Globulin [Mass ratio] 1.5 {ratio} [facility] Serum or plasma alkaline daniel sphatase measurement (enzymatic activity/volume)Ordered By: Glenys Murillo on 07-05-2022 ALP [Catalytic activity/Vol] 77 U/L 32-92 [facility] Serum or plasma anion gap de terminationOrdered By: Glenys Murillo on 07-05-2022 Anion gap [Moles/Vol] 10.7 mmol/L 6.0-15.0 [facility] Serum or plasma aspartate am inotransferase measurement (enzymatic activity/volume)Ordered By: Glenys Murillo on 07-05-2022 AST [Catalytic activity/Vol] 18 U/L 10-42 [facility] Serum or plasma calcium narciso urement (mass/volume)Ordered By: Glenys Murillo on 07-05-2022 Calcium [Mass/Vol] 9.1 mg/dL 8.2-10.2 [facility] Serum or plasma chloride joao surement (moles/volume)Ordered By: Glenys Murillo on 07-05-2022 Chloride [Moles/Vol] 105 mmol/L 95-114 [facility] Serum or plasma glucose narciso urement (mass/volume)Ordered By: Glenys Murillo on 07-05-2022 Glucose [Mass/Vol] 88 mg/dL 70-100 [facility] Comment on above: ADA recommended refe rence rangeRandom Glucose Reference Range is dependent on time and content of last meal. Glucose of more than 200 mg/dL in a nonstressed, ambulatory subject supports the diagnosis of Diabetes Mellitus. Serum or plasma high density lipoprotein (HDL) cholesterol measurementOrdered By: Glenys Murillo on 07-05-2022 Cholesterol in HDL [Mass/Vol] 44 mg/dL 35-85 [facility] Comment on above: HDL CHOL ATP-III CLA SSIFICATION Cardiovascular RiskHDL > or equal to 60 mg/dL LOWHDL < 40 mg/dL HIGH Serum or plasma potassium me asurement (moles/volume)Ordered By: Glenys Murillo on 07-05-2022 Potassium [Moles/Vol] 4.5 mmol/L 3.5-5.1 [facility] Serum or plasma sodium measu rement (moles/volume)Ordered By: Glenys Murillo on 07-05-2022 Sodium [Moles/Vol] 137 mmol/L 136-146 [facility] Serum or plasma total biliru bin measurement (mass/volume)Ordered By: Glenys Murillo on 07-05-2022 Bilirubin [Mass/Vol] 0.5 mg/dL 0.3-1.2 [facility] Serum or plasma total carbon dioxide measurement (moles/volume)Ordered By: Glenys Murillo on 07-05-2022 CO2 [Moles/Vol] 25.8 mmol/L 22.0-30.[address] [facility] Serum or plasma total choles terol/high density lipoprotein (HDL) cholesterol mass ratOrdered By: Glenys Murillo on 07-05-2022 Cholesterol.total/Choles terol in HDL [Mass ratio] 3.8 {ratio} <5.0 [facility] Serum or plasma urea nitroge n measurement (mass/volume)Ordered By: Glenys Murillo on 07-05-2022 Urea nitrogen [Mass/Vol] 12 mg/dL 9- [facility] TSH DL <= 0.005 mIU/L QnOrde red By: Glenys Murillo on 07-05-2022 TSH Qn 2.02 m[IU]/L 0.45-5.33 [facility] Thyroxine (T4) free [Mass/vo lume] in Serum or PlasmaOrdered By: Glenys Murillo on 07-05-2022 Free T4 [Mass/Vol] 0.68 ng/dL 0.61-1.12 [facility] Triglyceride [Mass/volume] i n Serum or PlasmaOrdered By: Glenys Murillo on 07-05-2022 Triglyceride [Mass/Vol] 153 mg/dL 35-[address] [facility] Comment on above: TRIG ATP III CLASSIF ICATIONTRIG less than 150 mg/dL NormalTRIG 150-199 mg/dL Borderline highTRIG 200-500 mg/dL High TRIG greater than 500 mg/dL Very highStandard traceable to the Center for Disease Conrtrol and Prevention (CDC) test method. WBC Auto (Bld) [#/Vol]Ordere d By: Glenys Murillo on 07-05-2022 WBC (Bld) [#/Vol] 5.5 10*3/uL 3.8-11.6 [facility] OPERATIVE REPORTon 0 OPERATIVE REPORT [address] [id number] OPERATIVE REPORT PATIENT NAME: KOURTNEY RED : 1980 MED REC NO: [id number] ROOM: ACCOUNT NO: [id number] ADMIT DATE: 02/17/2020 PROVIDER: Rayray Hart DATE [...] in satisfactory condition. RAYRAY HART JEAN/Shirley_OPSAJ_T Doc#: [id number] CC: Normal [facility] POCT HCG, Prenancy, Uron Beta HCG ( test) Ql (U) Negative NEGATIVE [place], [place] Comment on above: HCG screen is sensitive to 25 mIU/mL. However this test may black pickler lower levels of HCG. If further evaluation is needed please request quantitative HCG. - NOT REPORTED [place], [place] Surgical Pathologyon 020 Surgical Pathology (NOTE) [id number] [place], [place] [address] SURGICAL PATHOLOGY REPORT Patient Name: KOURTNEY RED MR#: [id number] Specimen #[id number] Final Diagnosis RIGHT EAR: CHOLESTEATOMA Aries Ferguson D.O. Electronically Signed [facility]/02/19/2020 Clinical Information Removal cholesteatoma right ear; patient to do COVID test at [facility], pt to bring results with her; [...] one YURIDIA slide confirms the diagnosis. Normal [facility] Comment on above: Performed By: #### P PPES #### [facility] [address] [facility] [place] [address] Horse Riding Coach Or Instructor: Aries Ferguson DO CBC Auto Differentialon 01-26 Basophils (Bld) [#/Vol] 0.00 10*3/uL [place] Basophils/100 WBC (Bld) 1 % 0 - 2 % [place] Differential Type NOT REPORTED [place] Eosinophils (Bld) [#/Vol] 0.20 10*3/uL [place] Eosinophils/100 WBC (Bld) 3 % 0 - 4 % [place] Erythrocyte distribution width (RBC) [Ratio] 13.7 % 11.5 - 14.9 % [place] Hematocrit (Bld) [Volume fraction] 39.0 % 36 - 46 % [place] Hemoglobin (Bld) [Mass/Vol] 13.2 g/dL 12 - 16 g/dL [place] Lymphocytes (Bld) [#/Vol] 1.50 10*3/uL [place] Lymphocytes/100 WBC (Bld) 25 % 24 - 44 % [place] MCH (RBC) [Entitic mass] 31.0 pg 26 - 34 pg [place] MCHC (RBC) [Mass/Vol] 33.9 g/dL 31 - 37 g/dL [place] MCV (RBC) [Entitic vol] 91.3 fL 80 - 100 fL [place] Monocytes (Bld) [#/Vol] 0.40 10*3/uL [place] Monocytes/100 WBC (Bld) 7 % 1 - 7 % [place] Platelet mean volume (Bld) [Entitic vol] 8.9 fL 6 - 12 fL [place] Platelets (Bld) [#/Vol] NOT REPORTED [place] Platelets (Bld) [#/Vol] 256 10*3/uL [place] RBC (Bld) [#/Vol] 4.27 10*6/uL 4 - 5.2 m/uL [place], [place] RBC morphology finding Nom (Bld) NOT REPORTED [place] Segmented neutrophils/100 WBC (Bld) 64 % 36 - 66 % [place] Segs Absolute 4.00 [place] WBC (Bld) [#/Vol] NOT REPORTED per 100 WBC [place] WBC (Bld) [#/Vol] 6.2 10*3/uL [place] WBC Morphology NOT REPORTED [place] CBC with Diffon 02-10-2020 Abs. Basophil 0.00 k/uL Normal 0.0-0.2 [facility] Comment on above: Performed By: #### C DP #### [facility] [address] [facility] [place] [address] Horse Riding Coach Or Instructor: Aries Ferguson DO Abs.Neutrophil (Seg) 4.00 k/uL Normal 1.3-9.1 [facility] [place] Comment on above: Performed By: #### C DP #### [facility] [address] [facility] [place] [address] Horse Riding Coach Or Instructor: Aries Ferguson DO Basophils/100 WBC (Bld) 1 % Normal 0-2 [facility] Comment on above: Performed By: #### C DP #### [facility] [address] [facility] [place] [address] Horse Riding Coach Or Instructor: Aries Ferguson DO Eosinophils (Bld) [#/Vol] 0.20 10*3/uL Normal 0.0-0.4 [facility] Comment on above: Performed By: #### C DP #### [facility] [address] [facility] [place] [address] Horse Riding Coach Or Instructor: Aries Ferguson DO Eosinophils/100 WBC (Bld) 3 % Normal 0-4 [facility] Comment on above: Performed By: #### C DP #### [facility] [address] [facility] [place] [address] Horse Riding Coach Or Instructor: Aries Ferguson DO Erythrocyte distribution width (RBC) [Ratio] 13.7 % Normal 11.5-14.9 [facility] Comment on above: Performed By: #### C DP #### [facility] [address] [facility] [place] [address] Horse Riding Coach Or Instructor: Aries Ferguson DO Hematocrit (Bld) [Volume fraction] 39.0 % Normal 36-46 [facility] Comment on above: Performed By: #### C DP #### [facility] [place] [address] Horse Riding Coach Or Instructor: Aries Ferguson DO Hemoglobin (Bld) [Mass/Vol] 13.2 g/dL Normal 12.0-16.0 [facility] Comment on above: Performed By: #### C DP #### [facility] [place] [address] Horse Riding Coach Or Instructor: Aries Ferguson DO Lymphocytes (Bld) [#/Vol] 1.50 10*3/uL Normal 1.0-4.8 [facility] Comment on above: Performed By: #### C DP #### [facility] [address] [place] [address] Horse Riding Coach Or Instructor: Aries Ferguson DO Lymphocytes/100 WBC (Bld) 25 % Normal 24-44 [facility] Comment on above: Performed By: #### C DP #### [facility] [address] [place] [address] Horse Riding Coach Or Instructor: Aries Ferguson DO MCH (RBC) [Entitic mass] 31.0 pg Normal 26-34 [facility] Comment on above: Performed By: #### C DP #### [facility] [address] [place] [address] Horse Riding Coach Or Instructor: Aries Ferguson DO MCHC (RBC) [Mass/Vol] 33.9 g/dL Normal 31-37 [facility] Comment on above: Performed By: #### C DP #### [facility] [address] [place] [address] Horse Riding Coach Or Instructor: Aries Ferguson DO MCV (RBC) [Entitic vol] 91.3 fL Normal 80-100 [facility] Comment on above: Performed By: #### C DP #### [facility] [address] [place] [address] Horse Riding Coach Or Instructor: Aries Ferguson DO Monocytes (Bld) [#/Vol] 0.40 10*3/uL Normal 0.1-1.3 [facility] Comment on above: Performed By: #### C DP #### [facility] [address] [place] [address] Horse Riding Coach Or Instructor: Aries Ferguson DO Monocytes/100 WBC (Bld) 7 % Normal 1-7 [facility] Comment on above: Performed By: #### C DP #### [facility] [place] [address] Horse Riding Coach Or Instructor: Aries Ferguson DO Neutrophil (Seg) 64 % Normal 36-66 [facility] Comment on above: Performed By: #### C DP #### [facility] [place] [address] Horse Riding Coach Or Instructor: Aries Ferguson DO Platelet mean volume (Bld) [Entitic vol] 8.9 fL Normal 6.0-12.0 [facility] Comment on above: Performed By: #### C DP #### [facility] [address] [place] [phone] Horse Riding Coach Or Instructor: Aries Ferguson DO Platelets (Bld) [#/Vol] 256 10*3/uL Normal 150-450 [facility] Comment on above: Performed By: #### C DP #### [facility] [place] [address] Horse Riding Coach Or Instructor: Aries Ferguson DO RBC (Bld) [#/Vol] 4.27 10*6/uL Normal 4.0-5.2 [facility] Comment on above: Performed By: #### C DP #### [facility] [address] [place] [address] Horse Riding Coach Or Instructor: Aries Ferguson DO WBC (Bld) [#/Vol] 6.2 10*3/uL Normal 3.5-11.0 [facility] Comment on above: Performed By: #### C DP #### [facility] [place] [address] Horse Riding Coach Or Instructor: Aries Ferguson DO Abs.Imm.Granulocyte NOT REPORTED Normal 0.00-0.30 [facility] Comment on above: Performed By: #### C DP #### [facility] [address] [place] [address] Horse Riding Coach Or Instructor: Aries Ferguson DO Auto Diff Performed NOT REPORTED Normal [facility] Comment on above: Performed By: #### C DP #### [facility] [address] [place] [address] Horse Riding Coach Or Instructor: Aries Ferguson DO Immature granulocytes (Bld) [#/Vol] NOT REPORTED Normal 0 [facility] Comment on above: Performed By: #### C DP #### [facility] [address] [place] [address] Horse Riding Coach Or Instructor: Aries Ferguson DO NRBC Automated NOT REPORTED Normal [facility] Comment on above: Performed By: #### C DP #### [facility] [place] [address] Horse Riding Coach Or Instructor: Aries Ferguson DO Platelets (Bld) [#/Vol] NOT REPORTED Normal [facility] Comment on above: Performed By: #### C DP #### [facility] [address] [place] [address] Horse Riding Coach Or Instructor: Aries Ferguson DO RBC morphology finding Nom (Bld) NOT REPORTED Normal [facility] Comment on above: Performed By: #### C DP #### [facility] [address] [place] [address] Horse Riding Coach Or Instructor: Aries Ferguson DO WBC Morphology NOT REPORTED Normal [facility] Comment on above: Performed By: #### C DP #### [facility] [address] [place] [address] Horse Riding Coach Or Instructor: Aries Ferguson DO Otheron 02-10-2020 Immature granulocytes (Bld) [#/Vol] NOT REPORTED [facility]- ID, [place] CT IAC POSTERIOR FOSSA WO CO NTRASTon [...] Interpreted by: Arnold Valiente MD Signed by: Arnodl Valiente MD 01/21/20 Final result Normal [facility] HPV DNA High Riskon 11-17-19 20 HPV Interp Normal [facility] Comment on above: Result Comment: This test [...] purposes. Performed By: #### H PV #### [facility] [address] [place] [address] [phone] Horse Riding Coach Or Instructor: Kane Lawson MD HPV Type 16 Not Detected Normal [facility] Comment on above: Performed By: #### H PVH #### [facility] [address] [place] [address] [phone] Horse Riding Coach Or Instructor: Kane Lawson MD HPV Type 18 Not Detected Normal [facility] Comment on above: Performed By: #### H PVH #### [facility] [address] [place] [address] [phone] Horse Riding Coach Or Instructor: Kane Lawson MD Other High Risk HPV Not Detected Normal [facility] Comment on above: Performed By: #### H PVH #### [facility] [address] [place] [address] Horse Riding Coach Or Instructor: Kane Lawson MD HPV DNA High Riskon 11-14-19 20 HPV Sample .THIN PREP Normal [facility] Comment on above: Performed By: #### H PVH #### [facility] [address] [place] [address] Horse Riding Coach Or Instructor: Kane Lawson MD Source .CERVIX Normal [facility] Comment on above: Performed By: #### H PVH #### [facility] [address] [place] [address] Horse Riding Coach Or Instructor: Kane Lawson MD Cytologyon 11-04-2019 Cytology (NOTE) INTERPRETATION Cervical material, (ThinPrep vial, Imaging-assisted review): Specimen Adequacy: Satisfactory for evaluation. - Endocervical/transform ation zone component present. Descriptive Diagnosis: Atypical squamous cells of undetermined significance (ASC-US). Comments: High Risk HPV testing was ordered. Stock Or Delivery Clerk: MARTIN Vora M.D. 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 Comment on above: Result Comment: REFE [...] B infection. Performed By: #### A HBS ####[facility] [place] [id number] Vital Signs Date Time Vital Sign Value Performing Clinician Facility 09-14-2021 09:45-0400 Body height 172.09 cm Maldonado Ulloa Other [facility] Other 09-14-2021 09:45-0400 Body mass index (BMI) [Ratio] 32.97 kg/m2 Maldonado Ulloa Other [facility] Other 09-14-2021 09:45-0400 Body weight 97.66 kg Maldonado Ulloa Other [facility] Other 09-14-2021 09:45-0400 Diastolic blood pressure 75 mm[Hg] Maldonado Ulloa Other [facility] Other 09-14-2021 09:45-0400 Respiratory rate 18 /min Maldonado Ulloa Other [facility] Other 09-14-2021 09:45-0400 SaO2% (BldA) [Mass fraction] 100 % Maldonado Morochodiff Other [facility] Other 09-14-2021 09:45-0400 Systolic blood pressure 97 mm[Hg] Maldonado Morochodiff Other [facility] Other 08-12-2021 09:30-0400 Body height 172.09 cm Jenna Pinaly Other [facility] Other 08-12-2021 09:30-0400 Body mass index (BMI) [Ratio] 33.4 kg/m2 Jenna Scally Other [facility] Other 08-12-2021 09:30-0400 Body weight 98.93 kg Jenna Scally Other [facility] Other 08-12-2021 09:30-0400 Diastolic blood pressure 85 mm[Hg] Jenna Scally Other [facility] Other 08-12-2021 09:30-0400 Respiratory rate 18 /min Jenna Scally Other [facility] Other 08-12-2021 09:30-0400 SaO2% (BldA) [Mass fraction] 100 % Jenna Olson Other [facility] Other 08-12-2021 09:30-0400 Systolic blood pressure 106 mm[Hg] Jenna Olson Other [facility] Other 06-01-2021 09:45-0500 Body height 172.09 cm Maldonado Morochodiff Other [facility] Other 06-01-2021 09:45-0500 Body mass index (BMI) [Ratio] 33.59 kg/m2 Maldonado Morochodiff Other [facility] Other 06-01-2021 09:45-0500 Body weight 99.47 kg Maldonado Laila Other [facility] Other 06-01-2021 09:45-0500 Diastolic blood pressure 77 mm[Hg] Maldonado Ulloa Other [facility] Other 06-01-2021 09:45-0500 Respiratory rate 18 /min Maldonado Ulloa Other [facility] Other 06-01-2021 09:45-0500 SaO2% (BldA) [Mass fraction] 100 % Maldonado Ulloa Other [facility] Other 06-01-2021 09:45-0500 Systolic blood pressure 111 mm[Hg] Maldonado Ulloa Other [facility] Other 04-20-2021 09:45-0500 Body height 172.09 cm Maldonado Ulloa . Other [facility] Other 04-20-2021 09:45-0500 Body mass index (BMI) [Ratio] 33.48 kg/m2 Maldonado Ulloa . Other [employer] Other 04-20-2021 09:45-0500 Body weight 99.16 kg Maldonado Ulloa . Other [employer] Other 04-20-2021 09:45-0500 Diastolic blood pressure 77 mm[Hg] Maldonado Ulloa . Other [employer] Other 04-20-2021 09:45-0500 Respiratory rate 18 /min Maldonado Galvanedie Mccoy. Other [facility] Other 04-20-2021 09:45-0500 SaO2% (BldA) [Mass fraction] 100 % Maldonado Galvanedie Mccoy. Other [employer] Other 04-20-2021 09:45-0500 Systolic blood pressure 105 mm[Hg] Maldonado Ulloa . Other [employer] Other 02-23-2021 09:15-0400 Body height 172.09 cm Maldonado Ulloa . Other [employer] Other 02-23-2021 09:15-0400 Body mass index (BMI) [Ratio] 35.46 kg/m2 Maldonado Ulloa . Other [employer] Other 02-23-2021 09:15-0400 Body weight 105.01 kg Maldonado Ulloa . Other [employer] Other 02-23-2021 09:15-0400 Diastolic blood pressure 74 mm[Hg] Maldonado Ulloa Jr. Other [employer] Other 02-23-2021 09:15-0400 Respiratory rate 18 /min Maldonado Ulloa Jr. Other [employer] Other 02-23-2021 09:15-0400 SaO2% (BldA) [Mass fraction] 99 % Maldonado Ulloa Jr. Other [facility] Other 02-23-2021 09:15-0400 Systolic blood pressure 108 mm[Hg] Maldonado Ulloa Jr. Other [employer] Other 02-17-2020 16:30-0400 BP Diastolic 67 mm[Hg] [facility] [place] 02-17-2020 16:30-0400 BP Systolic 126 mm[Hg] [facility] [place] 02-17-2020 16:20-0400 Body Temperature 97.11 [degF] RayrayNewton [facility] , [place] 02-17-2020 16:20-0400 Pulse (Heart Rate) 68 /min [facility] [place] 02-17-2020 16:20-0400 Pulse Oximetry 100 % [facility] [place] 02-17-2020 16:20-0400 Respiratory Rate 16 /min [facility] [place] 02-17-2020 12:10-0400 BMI (Body Mass Index) 35.55 kg/m2 [facility] [place] 02-17-2020 12:10-0400 Body weight 102.97 kg Rayray Nancy Konrad HoldingsVA [facility] , [place] 02-17-2020 12:10-0400 Height 170.2 cm Rayray Hart [facility] , [place] 02-10-2020 08:06-0400 BMI (Body Mass Index) 35.62 kg/m2 St 1 [facility], [place] 02-10-2020 08:06-0400 Body Temperature 97.81 [degF] [facility] , [place] 02-10-2020 08:06-0400 Body weight 103.[address] [facility] , [place] 02-10-2020 08:06-0400 BP Diastolic 77 mm[Hg] [facility] 1 [facility] , [place] 02-10-2020 08:06-0400 BP Systolic 109 mm[Hg] St 1 [facility] , [place] 02-10-2020 08:06-0400 Height 170.[address] [facility] 1 [facility] , [place] 02-10-2020 08:06-0400 Pulse (Heart Rate) 79 /min St 1 [facility], [place] 02-10-2020 08:06-0400 Pulse Oximetry 100 % St 1 [facility] , [place] 02-10-2020 08:06-0400 Respiratory Rate 12 /min [facility] 1 [facility], [place] Encounters Encounter Date Encounter Type Care Provider Facility Start: 07-12-2023 End: 07-12-2023 ambulatory Delmi Burnett Facility:[facility] Start: 07-12-2023 End: 07-12-2023 ambulatory MD Delmi Burnett Work Phone: [facility] Work Phone: Start: 07-12-2023 End: 07-12-2023 Patient encounter procedure MD Delmi Burnett Work Phone: [facility] Start: 06-08-2023 End: 06-09-2023 ambulatory ISMAEL [facility] Start: 08-23-2022 End: 08-24-2022 ambulatory YVONNE LARA MD Facility:[id number] Start: 08-14-2022 End: 08-14-2022 ambulatory Glenys Murillo Facility:[facility] Start: 08-11-2022 End: 08-12-2022 ambulatory GLENYS MURILLO [facility] Start: 08-11-2022 End: 08-11-2022 Subsequent hospital visit by physician Glenys Murillo STERILE TECH - NIB FINISHER Work Phone: [facility] Comment on above: 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 Start: 07-05-2022 End: 07-05-2022 ambulatory STERILE TECH Glenys Murillo Work Phone: [facility] Work Phone: Start: 07-05-2022 End: 07-05-2022 Patient encounter procedure STERILE TECH Glenys Murillo Work Phone: [facility] Work Phone: Start: 12-14-2021 End: 12-14-2021 Patient encounter procedure Glenys Murillo STERILE TECH - NIB FINISHER Work Phone: [facility] Start: 12-14-2021 End: 12-14-2021 Subsequent hospital visit by physician Glenys Murillo STERILE TECH - NIB FINISHER Work Phone: [employer] [facility] Comment on above: Women's annual routi ne gynecological examination Start: 09-14-2021 End: 09-14-2021 ambulatory Maldonado Ulloa Other [employer] Other Start: 09-14-2021 Follow-up encounter Maldonado guerrero [facility] Start: 08-12-[address] [facility] f/u Jenna Olson [facility] Start: 08-12-2021 End: 08-12-2021 ambulatory Jenna Olson Other [facility] Other Start: 08-09-2021 End: 08-09-2021 ambulatory Maldonado Ulloa Other [facility] Other Start: 08-09-2021 Telephone encounter Maldonado guerrero [facility] Start: 07-04-2021 End: 07-04-2021 ambulatory Maldonado Ulloa Other [employer] Other Start: 07-04-2021 Telephone encounter Maldonado Morochodiff [facility] Start: 06-20-2021 End: 06-20-2021 ambulatory Elva Martins Other [employer] Other Start: 06-20-2021 Telephone encounter Elva Baldwin [facility] Start: 06-01-2021 End: 06-01-2021 ambulatory Maldonadoleonardo Morochodiff Other [employer] Other Start: 06-01-2021 Follow-up encounter Maldonado Morochosheryl [facility] Start: 04-20-2021 End: 04-20-2021 ambulatory Maldonado Ulloa Jr. Other [employer] Other Start: 04-20-2021 Follow-up encounter Maldonado jiménez [facility] Start: 03-29-2021 End: 03-29-2021 ambulatory Elva Martins Other [facility] Other Start: 03-29-2021 Telephone encounter Elva Baldwin [facility] Start: 03-07-2021 Telephone encounter Maldonado jiménez [facility] Start: 02-23-2021 Follow-up encounter Maldonado jiménez [facility] Start: 12-02-2020 End: 12-02-2020 Subsequent hospital visit by physician Glenys Murillo APRN - NIB FINISHER Work Phone: [facility] Laboratory Comment on above: 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 Start: 06-07-2020 End: 06-07-2020 Subsequent hospital visit by physician Delmi Burnett [facility] Laboratory Comment on above: Vulval lesion; LGSIL on Pap smear of cervix Start: 05-03-2020 End: 05-03-2020 Subsequent hospital visit by physician Delmi Burnett [facility] Comment on above: ASCUS of cervix with negative high risk HPV Start: 02-17-2020 End: 02-17-2020 [facility] Start: 02-17-2020 End: 02-17-2020 Subsequent hospital visit by physician Rayray Hart Work Phone: [facility] Start: 02-13-2020 End: 02-13-2020 Subsequent hospital visit by physician Ronni Covid Screening Schedule [facility] Covid Screening Comment on above: Preop testing Start: 02-10-2020 End: 02-15-2020 Patient encounter procedure [facility] Start: 02-10-2020 End: 02-14-2020 Subsequent hospital visit by physician Jermaine Pat 1 [facility] Pre-Admit Testing Start: 01-21-2020 End: 01-24-2020 Patient encounter procedure [facility] Start: 11-04-2019 End: 11-05-2019 Patient encounter procedure ISMAEL Owen [facility] Start: 11-04-2019 End: 11-04-2019 Subsequent hospital visit by physician Delmi Burnett [facility] Comment on above: Women's annual routi ne gynecological examination Start: 03-25-2018 End: 03-26-2018 Patient encounter procedure MARU LAGUERREWINEISHA [facility] Procedures Date Procedure Procedure Detail Performing Clinician Start: 12-14-2021 Microscopic observat ion [Identifier] in Cervix by Cyto stain Glenys Murillo STERILE TECH - NIB FINISHER Work Phone: Start: 12-02-2020 Microscopic observat ion [Identifier] in Cervix by Cyto stain Glenys Murillo STERILE TECH - NIB FINISHER Work Phone: Start: 02-17-2020 DISCHARGE PATIENT RAYRAY [...] 02-10-2020 Blood count complete auto&auto difrntl wbc [place] [employer] Work Phone: Start: 01-21-2020 Ct orbit sella/post fossa/ear w/o contrast matrl RAYRAY ADAPPA Start: 11-04-2019 Screen pap by renard LI Start: 03-25-2018 HEPATITIS B SURFACE ANTIBODY MARU EDWARD Plan of Treatment Date Care Activity Detail Author Start: 03-21-2028 DTaP/Tdap/Td vaccine (2 - Td or Tdap) DTaP/Tdap/Td vaccine (2 - Td or Tdap) [facility] Start: 03-21-2028 DTaP/Tdap/Td vaccine (2 - Td) DTaP/Tdap/Td vaccine (2 - Td) [place] Start: 12-14-2026 Screening for malign ant neoplasm of cervix [facility] Start: 12-03-2025 Screening for malign ant neoplasm of cervix [facility] Start: 05-03-2025 Screening for malign ant neoplasm of cervix Cervical cancer screen [place], [place] Start: 12-14-2024 Screening for malign ant neoplasm of cervix Pap smear [facility] Start: 11-03-2024 Screening for malign ant neoplasm of cervix Cervical cancer screen [place], [place] Start: 12-03-2023 Screening for malign ant neoplasm of cervix Pap smear [facility] Start: 04-30-2023 Screening for malign ant neoplasm of cervix Cervical cancer screen [place], [place] Start: 08-22-2022 Lipid panel [facility] Start: 01-26-2022 Influenza vaccination Flu vaccine (# 1) [facility] Start: 12-26-2021 Influenza vaccination Flu vaccine (# 1) [facility] Start: 07-09-2021 COVID-19 Vaccine (4 - Booster for Moderna series) COVID-19 Vaccine (4 - Booster for Moderna series) [facility] Start: 06-07-2021 Depression Screen Depression Screen [facility] Start: 01-26-2021 Influenza vaccination Flu vaccine (# 1) [facility] Work Phone: Start: 07-26-2020 End: 07-26-2020 Office Visit 07/26/2020 Office Visit Obstetrics and Gynecology Ismael Li MD [address] [place] [address] [phone] [facility] OBSTETRICS GYNECOLOGY Start: 05-03-2020 End: 05-03-2020 Office Visit 05/03/2020 Office Visit Obstetrics and Gynecology Ismael Li MD [address] [place] [address] [phone] [facility] OBSTETRICS & GYNECOLOGY Start: 02-17-2020 End: 02-17-2020 Hospital Encounter [facility] Comment on above: REMOVAL CHOLESTEATOM A Start: 01-27-2020 Influenza vaccination [place], [place] Start: 12-02-2019 End: 12-02-2019 Office Visit 12/02/2019 Office Visit Obstetrics and Gynecology Ismael Li MD [address] [place] [address] [phone] [facility] [employer]LOOR [employer] Start: 2016 Diabetes screen Diabetes screen [facility] Start: 2000 DTaP/Tdap/Td vaccine (1 - Tdap) DTaP/Tdap/Td vaccine (1 - Tdap) [place], [place] Start: 11-14-1999 Hepatitis C screening Hepatitis C sc reen [facility] Start: 1993 Depression Screen Depression Screen [facility] Start: 1982 Varicella vaccine (1 of 2 - 2-dose childhood series) Varicella vaccine (1 of 2 - 2-dose childhood series) [facility] Start: 05-15-1982 COVID-19 Vaccine (#1) COVID-19 Vacci ne (#1) [facility] Start: 1981 Hepatitis C screening Hepatitis C sc reen [place], [place] End: 02-13-2020 COVID-19 Ambulatory COVID-19 Ambulatory Lab Routine Preop testing 1 Occurrences starting 02/13/2020 until 02/13/2020 [place] Comment on above: 1 Occurrences starti ng 02/13/2020 until 02/13/2020 COVID-19 Ambulatory COVID-19 Amb ulatory Lab Routine Preop testing 02/13/2020 7:21 AM EDT [place] End: 11-04-2019 Cytopathology procedure, preparation of smear, genital source PAP SMEAR Lab Routine Women's annual routine gynecological examination 1 Occurrences starting 11/04/2019 until 11/04/2019 [place] Comment on above: 1 Occurrences starti ng 11/04/2019 until 11/04/2019 End: 05-03-2020 Cytopathology procedure, preparation of smear, genital source PAP SMEAR Lab Routine ASCUS of cervix with negative high risk HPV 1 Occurrences starting 05/03/2020 until 05/03/2020 [place] Comment on above: 1 Occurrences starti ng 05/03/2020 until 05/03/2020 End: 12-02-2020 Cytopathology procedure, preparation of smear, genital source PAP SMEAR Lab Routine LGSIL on Pap smear of cervix 1 Occurrences starting 12/02/2020 until 12/02/2020 [facility] [employer] Phone: Comment on above: 1 Occurrences starti ng 12/02/2020 until 12/02/2020 End: 12-14-2021 Cytopathology procedure, preparation of smear, genital source PAP SMEAR Lab Routine Women's annual routine gynecological examination 1 Occurrences starting 12/14/2021 until 12/14/2021 [facility] [employer] Phone: Comment on above: 1 Occurrences starti ng 12/14/2021 until 12/14/2021 End: 08-11-2022 Cytopathology procedure, preparation of smear, genital source PAP SMEAR Lab Routine LGSIL on Pap smear of cervix 1 Occurrences starting 08/11/2022 until 08/11/[address] [facility] Work Phone: Comment on above: 1 Occurrences starti ng 08/11/2022 until 08/11/2022 [place]xygen therapy [place] [facility] [place] Initiate Oxygen Therapy Protocol Respiratory Care Routine Daily until discontinued starting 02/17/2020 [place] Comment on above: Daily until disconti nued starting 02/17/2020 Phase I & II - meter ed glucose Phase I & II - metered glucose Point of Care Testing Routine As Needed until discontinued starting 02/17/2020 [place] Comment on above: As Needed until disc ontinued starting 02/17/2020 Surgical Pathology Surgical Path ology Lab Routine Release Upon Ordering for 1 Occurrences starting 02/17/2020 [place] Comment on above: Release Upon Orderin g for 1 Occurrences starting 02/17/2020 End: 06-07-2020 Surgical Pathology [place], [place] Comment on above: 1 Occurrences starti ng 06/07/2020 until 06/07/2020 Immunizations Immunization Date Immunization Notes Care Provider Rai bonilla 03-06-2017 Influenza Vaccine, unspecified formulation [facility] , [place] 03-08-2016 Influenza Vaccine, unspecified formulation [place], [place] Payers Date Payer Category Payer Self-pay [id number] 2019 [employer] ( and others) [facility] xxxxxxxxxxx 2019-Present [id number] 2019 [employer] ( and others) [id number] 2019 [employer] ( and others) [facility] [id number] 2019-Present [phone] [address] [place] [address] [id number] 2019 [employer] ( and others) [id number] 1980 Unknown [id number] 1981 Unknown [id number] 1980 Unknown [id number] 1981 Unknown [id number] 1981 Unknown [id number] 1980 Unknown [id number] 1980 Unknown [id number] .173 [employer] ( and others) [id number] Unknown Other1 (STD) [id number] Unknown Insurance No Card [id number] Unknown [id number] Unknown [id number] Social History Date Type Detail Facility Start: 01-22-2014 End: 11-04-2019 Tobacco smoking status [facility] Start: 11-04-2019 End: 08-11-2022 Alcohol intake Current drinker of alcohol (finding) [facility] Start: 01-22-2014 Alcohol Comment social [facility] Start: 1980 Sex Assigned At Not on file [facility] Exposure to SARS-CoV-2 (event) Unable to assess Anita [employer] DOMINICK JEAN Start: 01-22-2014 End: 02-10-2020 Tobacco use and exposure Never used Anita [facility] Exposure to SARS-CoV-2 (event) Not sure Anita [facility] Sex Assigned At Sex Assigned At Bir th [facility] Other Start: 1980 Sex Assigned At Female F [facility] Clinical Notes 02-23-2021 to 09-14-2021 Note Date & Type Note Facility 09-14-2021 Evaluation note Encounter Date Diagnosis Assessment Notes Aug, Mixed hyperlipidemia (ICD-10 - E78.2) Aug, Obesity (BMI 30.0-34.9) (ICD-10 - E66.9) Aug, Vitamin D deficiency (ICD-10 - E55.9) Aug, Anxiety (ICD-10 - F41.9) Aug, Encounter for medication management (ICD-10 - Z79.899) [facility] Other 03-18-2022 Evaluation note* Encounter Date Diagnosis [...] was counseling done by myself, Danielle TROTTER. [facility] Other 11-24-2021 Evaluation note* Encounter Date Diagnosis Assessment Notes Treatment Notes Treatment Clinical Notes Mar, Mixed hyperlipidemia (ICD-10 - E78.2) Mar, Obesity (BMI 30.0-34.9) (ICD-10 - E66.9) Mar, Anxiety (ICD-10 - F41.9) [facility] Other 09-29-2021 Evaluation note* Encounter Date Diagnosis Assessment Notes Treatment Notes Treatment Clinical Notes Jan, Mixed hyperlipidemia (ICD-10 - E78.2) Jan, Obesity (BMI 35.0-39.9 without comorbidity) (ICD-10 - E66.9) Jan, Anxiety (ICD-10 - F41.9) [facility] Other Evaluation note* Diagnosis LGSIL on Pap smear of cervix documented in this encounter [employer] Phone: evaluation noteNo InformationNort [facility] Other Evaluation noteNort [facility] Other Evaluation note* Diagnosis Women's annual routine gynecological examination documented in this encounter [employer] Work Phone: evaluation noteNo assessment information available [facility] Work Phone: Evaluation note* Diagnosis LGSIL on Pap smear of cervix documented in this encounter [employer] Work Phone: History general Narrative - Reported* Type Description Date Medical History anxiety Surgical History Right Ear Surgery [facility] [employer] Other History general Narrative - [facility] Other Summary Purpose Family History No Family History Records Found Relationship Condition Age at Onset Recorded Date/T haylie father Malignant neoplasm Unknown Malignant neoplasm of urinary bladder Unk nown Unknown Not Specified Malignant neoplasm Unknown Advance Directives No Advanced Directives Records FoundDocuments on File Type Date Recorded Patient Clarity Developer Expl anation Advance Directives and Living Will 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 Wear loose comfortable clothing. 3. Leave your valuables at home. Bring a storage case for any glasses/contacts. 4. An adult who is responsible for you MUST drive you home and should be with you for the first 24 hours after surgery. The Day of Surgery: Arrive at [facility] Entr[facility] at the time directed by your surgeon and check in at the desk. If you have a living will or healthcare power of workers compensation attorney, please bring a copy. You will be taken to the pre-op holding area where you will be prepared for surgery. A physical assessment will be performed by a nurse practitioner or warehouse shipping receiving clerk. Your IV will be started and you [...] section and content) DATE CREATED AUTHOR 05/24/2018 [facility] DATE CREATED AUTHOR AUTHOR'S ORGANIZ ATION 12/13/2019 [facility] DATE CREATED AUTHOR AUTHOR'S ORGANIZ ATION 02/20/2020 [facility] DATE CREATED AUTHOR AUTHOR'S ORGANIZ ATION 08/26/2022 [facility] DATE CREATED AUTHOR AUTHOR'S ORGANIZ ATION 06/27/2023 [facility] Helio Mayte glez DATE CREATED AUTHOR AUTHOR'S ORGANIZ ATION 07/27/2023 [facility] Reason for Visit (unrecogniz ed section and content) Status Reason Specialty Diagnoses / Procedures Referre d By Contact Referred To Contact Diagnoses 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 Procedures SC EXC SKIN BENIG <5MM FACE,FACIAL REMOVAL CHOLESTEATOMA Adappa, Rayray, MD [address] [place] [address] [facility] Care Teams (unrecognized sec tion and content) Diaper Machine Tender Relationship Specialty Start Date End Date Glenys Murillo, STERILE TECH - NIB FINISHER [address] [place] [address] PCP - General Nurse Practitioner 12/02/20 Team Status: Inactive Member Role Status Dates Glenys Murillo APRN WIRE MESH GATE ASSEMBLER-C Primary Care Provider, Attending Provider Active Team Status: Active Member Role Status Dates Glenys Murillo APRN WIRE MESH GATE ASSEMBLER-C Primary Care Provider Active Diaper Machine Tender Relationship Specialty Start Date End Date Glenys Murillo STERILE TECH - NIB FINISHER [address] [place] [address] PCP - General Nurse Practitioner 12/02/20 Team [...] BE BASED ON THE PRIMARY CLINICAL RECORDS. [employer] provides no warranty or guarantee of the accuracy or completeness of information in this document.
== END 2023-08-10 10:36 | disposition home or self-care (01) ==
LOC: VC 10:35
PROVIDERS: Family Provider Family Medicine; PCP Radiology Diagnostic Radiology; Visit Provider Radiology Diagnostic Radiology
DX: I83.813 Varicose veins of bilateral lower extremities with pain (principal)
CPT/HCPCS: 36466

== ENCOUNTER 2023-08-16 07:27 | Outpatient (OUT) | payer OTHER, SELFPAY ==
--- NOTE | 2023-08-16 07:28 | VEIN_ITS ---
Patient Name: MARILOU COLÓN MR#: [id number] : 1980 Exam Date: 08/16/2023 Ordering Doctor: DR YVONNE RIDDLE M.D. RADIOLOGY REPORT PROCEDURE: VC EXT VENOUS LT LIMITED COMPARISON: VC EXT VENOUS LT LIMITED, 08/06/2023. INDICATIONS: I80.02 Phlebitis of superficial veins of lt lower extremity TECHNIQUE: Lower extremity ramirez scale and Duplex Doppler evaluation of the deep venous system from the inguinal ligament through the calf veins. FINDINGS: REGION: Left lower extremity. THROMBI: Stable heat induced thrombus within the small saphenous vein with proximal margin 3 mm from saphenopopliteal junction. Varithena induced thrombus visualized at mid/med calf and mid/ant thigh. COMPRESSIBILITY: Non-compressible segments corresponding to thrombus FLOW: Normal waveform and antegrade flow between 5 and 20 cm/s..Areas of no flow corresponding to thrombus OTHER: No patent varicose veins remain. CONCLUSION: 1. 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 2. Stable left small saphenous vein heat induced thrombus 3 mm some saphenopopliteal junction. Dictated by: Dennis Nobles M.D. on 08/16/2023 at 10:23 Approved by: Dennis Nobles M.D. on 08/16/2023 at 10:26
--- NOTE | 2023-08-16 07:28 | VEIN_ITS ---
Patient Name: MARILOU COLÓN MR#: [id number] : 1980 Exam Date: 08/16/2023 Ordering Doctor: DR YVONNE RIDDLE M.D. RADIOLOGY REPORT PROCEDURE: FACILITY EST [facility] - OFFICE VISIT FOLLOW UP COMPARISON: [facility] EST TD, 08/06/2023. PROGRESS NOTES: The patient reports improvement in leg symptoms. There has been interval reduction in varicosities. The patient has followed our recommendations to walk 20-30 minutes once or twice per day since the procedure. Physical exam demonstrates decrease in varicosities of the leg. No remaining varicosities identified along the left. Review of the ultrasound performed the same day demonstrates occlusive thrombus extending throughout the treated vein(s), see separate report, consistent with a successful ablation. No thrombus extending into or beyond the saphenofemoral junction. VEIN/ Facility EST [facility]MTD IMPRESSION: 1. Successful ablation of the left leg treated branch saphenous varicosities. 2. No remaining varicosities in need of treatment at this time. PLAN: Follow-up in future as needed. Nurse notes, history and physical were reviewed and confirmed, see attached forms. The nurse was present throughout the physical exam and consultation Dictated by: Dennis Nobles M.D. on 08/16/2023 at 10:26 Approved by: Dennis Nobles M.D. on 08/16/2023 at 10:32
--- OUTSIDE RECORDS SUMMARY | 2023-08-16 07:29 | XMS_ITS | CCD ---
Author Organization [facility] Care Team Providers Care Workers' Compensation Claims Supervisor Name Role Phone MARU EDWARD Unavailable Unavailable MATEUSZ BURNETT Unavailable Unavailable Mateusz Burnett Primary Care Provider SALVATORE LI Referring Unavailable MATEUSZ BURNETT Primary Care Unavailable Mateusz Burnett Primary Care Provider [phone] ADAPPA, RAYRAY Referring Unavailable MATEUSZ BURNETT Primary Care Unavailable ADAPPA, RAYRAY Referring Unavailable MATEUSZ BURNETT Primary Care Unavailable ADAPPA, RAYRAY Admitting Unavailable ADAPPA, RAYRAY Attending Unavailable MATEUSZ BURNETT Primary Care Unavailable Chidi PASTORAL ASSISTANT - [facility], Anahi Juan A Primary Care Pr ovider Maldonado Ulloa Jr. Unavailable Elva Martins Unavailable Maldonado Ulloa Unavailable Jenna Olson Unavailable Chidi PASTORAL ASSISTANT - [facility], Anahi Juan A Primary Care Pr ovider INDIA Murillo Primary Care Provider [place] Murillo Attending Provider Chidi PASTORAL ASSISTANT - [facility], Anahi Juan A Primary Care Pr ovider YVONNE LARA MD Attending Unavailable HILARY MURILLOA JUAN A Primary Care UnavailSALVATORE Moraes Referring Unavailable SALVATORE LI Referring Unavailable HILARY MURILLOA JUAN A Primary Care UnavailMD Mateusz Abad Primary Care Provider MD Mateusz Burnett Attending Provider Mateusz Burnett Primary Care Unavailable Mateusz Burnett Attending Unavailable Mateusz Burnett Admitting Unavailable Anahi Murillo Primary Care Unavailabl e Self, Referral Admitting [...] days Active take 1 capsule by mo uth every twenty-four hours take 1 tablet by [...] te Episodic/Chronic Other aftercare (3 sources) Other mcfp (current) drug therapy Onset: 06-01-2021 Resolved: 09-14-2021 Episodic Other nervous system disorders (2 sources) Paresthesia of skin Onset: 06-01-2021 Resolved: 08-12-2021 Episodic Results Test Name Value Interpretation Reference Range Facility Alanine aminotransferase [En zymatic activity/volume] in Serum or PlasmaOrdered By: Mateusz Burnett on 07-12-2023 ALT [Catalytic activity/Vol] 14 U/L 7-52 [place] Albumin [Mass/volume] in Ser um or Plasma by Bromocresol green (BCG) dye binding methoOrdered By: Mateusz Burnett on 07-12-2023 Albumin BCG dye [Mass/Vol] 4.2 g/dL 3.5-5.7 [place] Alkaline phosphatase [Enzyma tic activity/volume] in Serum or PlasmaOrdered By: Mateusz Burnett on 07-12-2023 ALP [Catalytic activity/Vol] 68 U/L 34-104 [facility] Aspartate aminotransferase [ Enzymatic activity/volume] in Serum or PlasmaOrdered By: Mateusz Burnett on 07-12-2023 AST [Catalytic activity/Vol] 17 U/L 13-39 [place] Basophils Auto (Bld) [#/Vol] Ordered By: Mateusz Burnett on 07-12-2023 Basophils (Bld) [#/Vol] 0.1 10*3/uL 0.0-0.2 [place] Basophils/100 WBC Auto (Bld) Ordered By: Mateusz Burnett on 07-12-2023 Basophils/100 WBC (Bld) 1.0 % . F [facility] Bilirubin.total [Mass/volume ] in Serum or PlasmaOrdered By: Mateusz Burnett on 07-12-2023 Bilirubin [Mass/Vol] 0.5 mg/dL 0.3-1.0 [facility] Calcium [Mass/volume] in Ser um or PlasmaOrdered By: Mateusz Burnett on 07-12-2023 Calcium [Mass/Vol] 9.1 mg/dL 8.6-10.3 [facility] Carbon dioxide, total [Moles /volume] in Serum or PlasmaOrdered By: Mateusz Burnett on 07-12-2023 CO2 [Moles/Vol] 29.0 mmol/L 21.0-31.0 [facility] Chloride [Moles/volume] in S fermin or PlasmaOrdered By: Mateusz Burnett on 07-12-2023 Chloride [Moles/Vol] 106 mmol/L 98-107 [facility] Cholesterol [Mass/volume] in Serum or PlasmaOrdered By: Mateusz Burnett on 07-12-2023 Cholesterol [Mass/Vol] 190 mg/dL 140-200 [facility] Comment on above: Chol less than 200 m g/dl low riskChol 201-239 mg/dl borderline riskChol 240 mg/dl and greater high risk Cholesterol in LDL Calc [Mas s/Vol]Ordered By: Mateusz Burnett on 07-12-2023 Cholesterol in LDL [Mass/Vol] 111 mg/dL 0-100 [place] Comment on above: LDL ATP III CLASSIFI CATIONLDL less than 100 mg/dL OptimalLDL 100-129 mg/dL Near or above optimalLDL 130-159 mg/dL Borderline highLDL 160-189 mg/dL HighLDL greater than 189 mg/dL Very high Cholesterol in VLDL Calc [Ma ss/Vol]Ordered By: Mateusz Burnett on 07-12-2023 Cholesterol in VLDL [Mass/Vol] 20 mg/dL [place] Complete Blood Count Auto Di ffon 07-12-2023 Basophils (Bld) [#/Vol] 0.1 10*3/uL Normal 0.0-0.2 [place] Comment on above: Result Comment: PERF ORMED BY: [facility] [address] [address] PATHOLOGIST RENTAL BOATS CARETAKER JIANLAN SUN M.D. Performed By: #### C MP, TSH3, LIPID, T4F, CBC #### [address] Basophils/100 WBC (Bld) 1.0 % Normal . F [facility] Comment on above: Performed By: #### C MP, TSH3, LIPID, T4F, CBC #### [address] Eosinophils (Bld) [#/Vol] 0.1 10*3/uL Normal 0.0-0.45 [place] Comment on above: Performed By: #### C MP, TSH3, LIPID, T4F, CBC #### [address] Eosinophils/100 WBC (Bld) 2.0 % Normal . [facility] Comment on above: Performed By: #### C MP, TSH3, LIPID, T4F, CBC #### [address] Erythrocyte distribution width (RBC) [Ratio] 14.5 % Normal 11.9-15.3 [place] Comment on above: Performed By: #### C MP, TSH3, LIPID, T4F, CBC #### [address] Hematocrit (Bld) [Volume fraction] 38.8 % Normal 34.0-46.4 [place] Comment on above: Performed By: #### C MP, TSH3, LIPID, T4F, CBC #### [address] Hemoglobin (Bld) [Mass/Vol] 12.9 g/dL Normal 11.8-15.4 [place] Comment on above: Performed By: #### C MP, TSH3, LIPID, T4F, CBC #### [address] Lymphocytes (Bld) [#/Vol] 1.7 10*3/uL Normal 1.00-4.8 [place] Comment on above: Performed By: #### C MP, TSH3, LIPID, T4F, CBC #### [address] Lymphocytes/100 WBC (Bld) 27.9 % Normal . [place] Comment on above: Performed By: #### C MP, TSH3, LIPID, T4F, CBC #### [address] MCH (RBC) [Entitic mass] 30.4 pg Normal 24.7-34.3 [place] Comment on above: Performed By: #### C MP, TSH3, LIPID, T4F, CBC #### [address] MCV (RBC) [Entitic vol] 91.3 fL Normal 80-100 F [facility] Comment on above: Performed By: #### C MP, TSH3, LIPID, T4F, CBC #### [address] Mean Corpuscular HGB Conc 33.3 g/dL Normal 32.0-35.0 [place] Comment on above: Performed By: #### C MP, TSH3, LIPID, T4F, CBC #### [address] Monocytes (Bld) [#/Vol] 0.4 10*3/uL Normal 0.0-0.8 [place] Comment on above: Performed By: #### C MP, TSH3, LIPID, T4F, CBC #### [address] Monocytes/100 WBC (Bld) 6.5 % Normal . F [facility] Comment on above: Performed By: #### C MP, TSH3, LIPID, T4F, CBC #### [address] Neutrophils (Bld) [#/Vol] 3.8 10*3/uL Normal 1.8-7.7 [place] Comment on above: Performed By: #### C MP, TSH3, LIPID, T4F, CBC #### [address] Neutrophils/100 WBC (Bld) 62.6 % Normal . [place] Comment on above: Performed By: #### C MP, TSH3, LIPID, T4F, CBC #### [address] NRBC% 0.1 /100{WBC} Normal 0-0.5 [place] Comment on above: Performed By: #### C MP, TSH3, LIPID, T4F, CBC #### [address] Platelet mean volume (Bld) [Entitic vol] 8.7 fL Normal 6.3-10.7 [place] Comment on above: Performed By: #### C MP, TSH3, LIPID, T4F, CBC #### [address] Platelets (Bld) [#/Vol] 285 10*3/uL Normal 150-450 [place] Comment on above: Performed By: #### C MP, TSH3, LIPID, T4F, CBC #### [address] RBC (Bld) [#/Vol] 4.25 10*6/uL Normal 3.60-5.00 [facility] Comment on above: Performed By: #### C MP, TSH3, LIPID, T4F, CBC #### [address] WBC (Bld) [#/Vol] 6.1 10*3/uL Normal 3.8-11.6 [facility] Comment on above: Performed By: #### C MP, TSH3, LIPID, T4F, CBC #### [address] Comprehensive Metabolic Pane lenora 07-12-2023 Albumin [Mass/Vol] 4.2 g/dL Normal 3.5-5.7 [facility] Comment on above: Performed By: #### C MP, TSH3, LIPID, T4F, CBC #### [facility] [address] Albumin/Globulin [Mass ratio] 1.6 {ratio} Normal [place] Comment on above: Performed By: #### C MP, TSH3, LIPID, T4F, CBC #### [facility] [address] ALP [Catalytic activity/Vol] 68 U/L Normal 34-104 [place] Comment on above: Performed By: #### C MP, TSH3, LIPID, T4F, CBC #### [facility] [address] ALT [Catalytic activity/Vol] 14 U/L Normal 7-52 [place] Comment on above: Performed By: #### C MP, TSH3, LIPID, T4F, CBC #### [facility] [address] Anion gap [Moles/Vol] 7.5 mmol/L Normal 6.0-15.0 [facility] Comment on above: Performed By: #### C MP, TSH3, LIPID, T4F, CBC #### [facility] [address] AST [Catalytic activity/Vol] 17 U/L Normal 13-39 [place] Comment on above: Performed By: #### C MP, TSH3, LIPID, T4F, CBC #### [facility] [address] [place] [address] [place] Bilirubin [Mass/Vol] 0.5 mg/dL Normal 0.3-1.0 [facility] Comment on above: Performed By: #### C MP, TSH3, LIPID, T4F, CBC #### [facility] [address] [place] [address] [place] Calcium [Mass/Vol] 9.1 mg/dL Normal 8.6-10.3 [facility] Comment on above: Performed By: #### C MP, TSH3, LIPID, T4F, CBC #### [facility] [address] [place] [address] [place] Chloride [Moles/Vol] 106 mmol/L Normal 98-107 [facility] Comment on above: Performed By: #### C MP, TSH3, LIPID, T4F, CBC #### [address] CO2 [Moles/Vol] 29.0 mmol/L Normal 21.0-31.0 [facility] Comment on above: Performed By: #### C MP, TSH3, LIPID, T4F, CBC #### [address] Creatinine [Mass/Vol] 0.69 mg/dL Normal 0.60-1.20 [facility] Comment on above: Performed By: #### C MP, TSH3, LIPID, T4F, CBC #### [address] GFR/1.73 sq M.predicted MDRD (S/P/Bld) [Vol rate/Area] mL/min/{1.73_m2} Normal [place] Comment on above: Performed By: #### C MP, TSH3, LIPID, T4F, CBC #### [address] Globulin (S) [Mass/Vol] 2.6 g/dL Normal [facility] Comment on above: Performed By: #### C MP, TSH3, LIPID, T4F, CBC #### [address] Glucose [Mass/Vol] 88 mg/dL Normal 70-100 [facility] Comment on above: Result Comment: [facility] Glucose Reference Range is dependent on time and content of last meal. Glucose of more than 200 mg/dL in a nonstressed, ambulatory subject supports the diagnosis of Diabetes Mellitus. ADA recommended reference range Performed By: #### C MP, TSH3, LIPID, T4F, CBC #### [address] Potassium [Moles/Vol] 4.5 mmol/L Normal 3.5-5.1 [facility] Comment on above: Performed By: #### C MP, TSH3, LIPID, T4F, CBC #### [facility] [address] Protein [Mass/Vol] 6.8 g/dL Normal 6.4-8.9 [facility] Comment on above: Performed By: #### C MP, TSH3, LIPID, T4F, CBC #### [facility] [address] Sodium [Moles/Vol] 138 mmol/L Normal 136-145 [facility] Comment on above: Performed By: #### C MP, TSH3, LIPID, T4F, CBC #### [facility] [address] Urea nitrogen [Mass/Vol] 16 mg/dL Normal 7-25 [place] Comment on above: Performed By: #### C MP, TSH3, LIPID, T4F, CBC #### [facility] [address] Creatinine [Mass/volume] in Serum or PlasmaOrdered By: Mateusz Burnett on 07-12-2023 Creatinine [Mass/Vol] 0.69 mg/dL 0.60-1.20 [facility] Eosinophils Auto (Bld) [#/Vo l]Ordered By: Mateusz Burnett on 07-12-2023 Eosinophils (Bld) [#/Vol] 0.1 10*3/uL 0.0-0.45 [place] Eosinophils/100 WBC Auto (Bl d)Ordered By: Mateusz Burnett on 07-12-2023 Eosinophils/100 WBC (Bld) 2.0 % . [facility] Erythrocyte distribution wid th Auto (RBC) [Ratio]Ordered By: Mateusz Burnett on 07-12-2023 Erythrocyte distribution width (RBC) [Ratio] 14.5 % 11.9-15.3 [place] Free T4 (Free Thyroxine)on 0 07-12-2023 Free T4 [Mass/Vol] 0.61 ng/dL Normal 0.61-1.12 [facility] Comment on above: Performed By: #### C MP, TSH3, LIPID, T4F, CBC #### [facility] [address] Globulin Calc (S) [Mass/Vol] Ordered By: Mateusz Burnett on 07-12-2023 Globulin (S) [Mass/Vol] 2.6 g/dL [facility] Glucose [Mass/volume] in Ser um or PlasmaOrdered By: Mateusz Burnett on 07-12-2023 Glucose [Mass/Vol] 88 mg/dL 70-100 [facility] Comment on above: ADA recommended refe rence rangeRandom Glucose Reference Range is dependent on time and content of last meal. Glucose of more than 200 mg/dL in a nonstressed, ambulatory subject supports the diagnosis of Diabetes Mellitus. Hematocrit Auto (Bld) [Volum e fraction]Ordered By: Mateusz Burnett on 07-12-2023 Hematocrit (Bld) [Volume fraction] 38.8 % 34.0-46.4 [facility] Hemoglobin [Mass/volume] in BloodOrdered By: Mateusz Burnett on 07-12-2023 Hemoglobin (Bld) [Mass/Vol] 12.9 g/dL 11.8-15.4 [facility] Leukocytes [#/volume] correc evelio for nucleated erythrocytes in Blood by Automated counOrdered By: Mateusz Burnett on 07-12-2023 WBC corrected for nucl RBC Auto (Bld) [#/Vol] 6.1 10*3/uL 3.8-11.6 [place] Lipid Panelon 07-12-2023 Cholesterol [Mass/Vol] 190 mg/dL Normal 140-200 [facility] Comment on above: Result Comment: Chol less than 200 mg/dl low risk Chol 201-239 mg/dl borderline risk Chol 240 mg/dl and greater high risk Performed By: #### C MP, TSH3, LIPID, T4F, CBC #### [facility] [address] Cholesterol in HDL [Mass/Vol] 59 mg/dL Normal 23-92 [place] Comment on above: Result Comment: HDL CHOL ATP-III CLASSIFICATION Cardiovascular Risk HDL > or equal to 60 mg/dL LOW HDL < 40 mg/dL HIGH Performed By: #### C MP, TSH3, LIPID, T4F, CBC #### [facility] [address] Cholesterol.total/Choles terol in HDL [Mass ratio] 3.2 {ratio} Normal <5.0 [place] Comment on above: Performed By: #### C MP, TSH3, LIPID, T4F, CBC #### [facility] [address] LDL Cholesterol,Calculated 111 mg/dL High 0-100 [place] Comment on above: Result Comment: LDL ATP III CLASSIFICATION LDL less than 100 mg/dL Optimal LDL 100-129 mg/dL Near or above optimal LDL 130-159 mg/dL Borderline high LDL 160-189 mg/dL High LDL greater than 189 mg/dL Very high Performed By: #### C MP, TSH3, LIPID, T4F, CBC #### [facility] [address] Triglyceride w/Reflex 102 mg/dL Normal 0-149 [facility] Comment on above: Result Comment: TRIG ATP III CLASSIFICATION TRIG less than 150 mg/dL Normal TRIG 150-199 mg/dL Borderline high TRIG 200-500 mg/dL High TRIG greater than 500 mg/dL Very high Standard traceable to the Center for Disease Conrtrol and Prevention (CDC) test method. Performed By: #### C MP, TSH3, LIPID, T4F, CBC #### [facility] [address] VLDL CHOLESTEROL 20 mg/dL Normal [facility] Comment on above: Performed By: #### C MP, TSH3, LIPID, T4F, CBC #### [facility] [address] Lymphocytes Auto (Bld) [#/Vo l]Ordered By: Mateusz Burnett on 07-12-2023 Lymphocytes (Bld) [#/Vol] 1.7 10*3/uL 1.00-4.8 [place] Lymphocytes/100 WBC Auto (Bl d)Ordered By: Mateusz Burnett on 07-12-2023 Lymphocytes/100 WBC (Bld) 27.9 % . [place] MCH Auto (RBC) [Entitic mass ]Ordered By: Mateusz Burnett on 07-12-2023 MCH (RBC) [Entitic mass] 30.4 pg 24.7-34.3 [place] MCHC Auto (RBC) [Mass/Vol]Or dered By: Mateusz Burnett on 07-12-2023 MCHC (RBC) [Mass/Vol] 33.3 g/dL 32.0-35.0 [facility] MCV Auto (RBC) [Entitic vol] Ordered By: Mateusz Burnett on 07-12-2023 MCV (RBC) [Entitic vol] 91.3 fL 80-100 F [facility] Monocytes Auto (Bld) [#/Vol] Ordered By: Mateusz Burnett on 07-12-2023 Monocytes (Bld) [#/Vol] 0.4 10*3/uL 0.0-0.8 [place] Monocytes/100 WBC Auto (Bld) Ordered By: Mateusz Burnett on 07-12-2023 Monocytes/100 WBC (Bld) 6.5 % . F [facility] Neutrophils Auto (Bld) [#/Vo l]Ordered By: Mateusz Burnett on 07-12-2023 Neutrophils (Bld) [#/Vol] 3.8 10*3/uL 1.8-7.7 [place] Neutrophils/100 WBC Auto (Bl d)Ordered By: Mateusz Burnett on 07-12-2023 Neutrophils/100 WBC (Bld) 62.6 % . [place] No Panel InformationOrdered By: Mateusz Burnett on 07-12-2023 Estimated GFR (CKD-EPI) > 60.0 mL/Min [facility] Creatinine Clearance (Chem N/A [place] Nucleated erythrocytes [Pres ence] in Blood by Automated countOrdered By: Mateusz Burnett on 07-12-2023 Nucleated RBC Auto Ql (Bld) 0.1 /100{WBC} 0-0.5 [place] Platelet mean volume Auto (B ld) [Entitic vol]Ordered By: Mateusz Burnett on 07-12-2023 Platelet mean volume (Bld) [Entitic vol] 8.7 fL 6.3-10.7 [place] Platelets Auto (Bld) [#/Vol] Ordered By: Mateusz Burnett on 07-12-2023 Platelets (Bld) [#/Vol] 285 10*3/uL 150-450 [place] Potassium [Moles/volume] in Serum or PlasmaOrdered By: Mateusz Burnett on 07-12-2023 Potassium [Moles/Vol] 4.5 mmol/L 3.5-5.1 [facility] Protein [Mass/volume] in Ser um or PlasmaOrdered By: Mateusz Burnett on 07-12-2023 Protein [Mass/Vol] 6.8 g/dL 6.4-8.9 [facility] RBC Auto (Bld) [#/Vol]Ordere d By: Mateusz Burnett on 07-12-2023 RBC (Bld) [#/Vol] 4.25 10*6/uL 3.60-5.00 [facility] Serum or plasma albumin/glob ulin mass ratioOrdered By: Mateusz Burnett on 07-12-2023 Albumin/Globulin [Mass ratio] 1.6 {ratio} [place] Serum or plasma anion gap de terminationOrdered By: Mateusz Burnett on 07-12-2023 Anion gap [Moles/Vol] 7.5 mmol/L 6.0-15.0 [facility] Serum or plasma high density lipoprotein (HDL) cholesterol measurementOrdered By: Mateusz Burnett on 07-12-2023 Cholesterol in HDL [Mass/Vol] 59 mg/dL 23-92 [place] Comment on above: HDL CHOL ATP-III CLA SSIFICATION Cardiovascular RiskHDL > or equal to 60 mg/dL LOWHDL < 40 mg/dL HIGH Serum or plasma total choles terol/high density lipoprotein (HDL) cholesterol mass ratOrdered By: Mateusz Burnett on 07-12-2023 Cholesterol.total/Choles terol in HDL [Mass ratio] 3.2 {ratio} <5.0 [place] Sodium [Moles/volume] in Ser um or PlasmaOrdered By: Mateusz Burnett on 07-12-2023 Sodium [Moles/Vol] 138 mmol/L 136-145 [facility] Thyroid Stimulating Hormoneo n 07-12-2023 TSH Qn 1.70 m[IU]/L Normal 0.45-5.33 [place] Comment on above: Result Comment: PERF ORMED BY: [facility] [address] [place] [address] PATHOLOGIST [employer]ENTAL [employer]ATS CARETAKER MIKALA ENGLAND M.D. Performed By: #### C MP, TSH3, LIPID, T4F, CBC #### [address] Thyrotropin [Units/volume] i n Serum or PlasmaOrdered By: Mateusz Burnett on 07-12-2023 TSH Qn 1.70 m[IU]/L 0.45-5.33 [place] Thyroxine (T4) free [Mass/vo lume] in Serum or PlasmaOrdered By: Mateusz Burnett on 07-12-2023 Free T4 [Mass/Vol] 0.61 ng/dL 0.61-1.12 [facility] Triglyceride [Mass/volume] i n Serum or PlasmaOrdered By: Mateusz Burnett on 07-12-2023 Triglyceride [Mass/Vol] 102 mg/dL 0-149 F [facility] Comment on above: TRIG ATP III CLASSIF ICATIONTRIG less than 150 mg/dL NormalTRIG 150-199 mg/dL Borderline highTRIG 200-500 mg/dL High TRIG greater than 500 mg/dL Very highStandard traceable to the Center for Disease Conrtrol and Prevention (CDC) test method. Urea nitrogen [Mass/volume] in Serum or PlasmaOrdered By: Mateusz Burnett on 07-12-2023 Urea nitrogen [Mass/Vol] 16 mg/dL 7-25 [place] WBC Auto (Bld) [#/Vol]Ordere d By: Mateusz Burnett on 07-12-2023 WBC (Bld) [#/Vol] 6.1 10*3/uL 3.8-11.6 [facility] HPV DNA High Riskon 06-26-19 24 HPV Interp Normal [facility] Comment on above: Result Comment: This [...] purposes. Performed By: #### H PVH #### [address] [address] Blue Leather Setter: Kane Lawson MD HPV Type 16 Not detected [facility] Comment on above: Performed By: #### H PVH #### [address] [address] Blue Leather Setter: Kane Lawson MD HPV Type 18 Not detected [facility] Comment on above: Performed By: #### H PVH #### [address] [address] Blue Leather Setter: Kane Lawson MD Other High Risk HPV Not detected [facility] Comment on above: Performed By: #### H PVH #### [address] [address] Blue Leather Setter: Kane Lawson MD HPV DNA High Riskon 06-25-19 24 HPV Sample .THIN PREP [facility] Comment on above: Performed By: #### H PVH #### [address] [address] Blue Leather Setter: Kane Lawson MD Source CERVICAL MATERIAL Normal [facility] Comment on above: Performed By: #### H PVH #### [address] [address] Blue Leather Setter: Kane Lawson MD Cytology Reporton 06-08-2023 Cytology report Cyto stain.thin prep Doc (Cvx/Vag) (NOTE) Path Number: [id number] DIAGNOSIS Imaged ThinPrep Pap - Cervical (1 monolayer slide): Specimen Adequacy: Satisfactory for evaluation. - Endocervical/transform ation zone component present. Descriptive Diagnosis: Atypical squamous cells of undetermined significance (ASC-US). Cytotech Screener: EY Electronically Signed Out Viviana Conde. /06/25/2023 Procedure/Addendum [...] or for other forensic purposes. Performed at [address] [address] ([phone] Source of Specimen: A: Imaged ThinPrep Pap - Cervical (1 monolayer slide) HPV Reflex?............... .......HPV if Abnormal Clinical History R87.610 Cytology smear of cervix with ASC-US Processing Lab: [address] [address] Interpretation performed at [address] [id number] This Pap Test has been evaluated with [...] smear result. GYNECOLOGIC CYTOLOGY REPORT Patient Name: MARILOU RED Rec: [id number] [facility] ANATOMIC PATHOLOGY [address] [place] [id number] [facility] HPV DNA High Riskon 08-25-19 23 HPV Interp [facility] Comment on above: Result Comment: This [...] purposes. Performed By: #### H PVH #### [facility] [employer] [address] [place] [address] [phone] Blue Leather Setter: Kane Lawson MD HPV Type 16 Not detected [facility] Comment on above: Performed By: #### H PVH #### [address] [id number] Blue Leather Setter: Kane Lawson MD HPV Type 18 Not detected [facility] Comment on above: Performed By: #### H PVH #### [facility] [address] [place] [address] [phone] Blue Leather Setter: Kane Lawson MD Other High Risk HPV Not detected [facility] Comment on above: Performed By: #### H PVH #### [address] [address] Blue Leather Setter: Kane Lawson MD HPV DNA High Riskon 08-22-19 23 HPV Sample .THIN PREP [facility] Comment on above: Performed By: #### H PVH #### [facility] [address] [place], [place] [id number] Blue Leather Setter: Kane Lawson MD Source CERVICAL MATERIAL Normal [facility] Comment on above: Performed By: #### H PVH #### [facility] [address] [place], [place] [id number] Blue Leather Setter: Kane Lawson MD MM screening mammo BI w/CADo n 08-14-2022 MM screening mammo BI w/CAD [facility] [place] [address] [place] [address] Mammography Report Signed Patient: Marilou Red MR#: [id number] 9 : 1980 Acct:[id number] Age/Sex: 41 / F ADM Date: 08/14/22 Loc: [place] Room: Type: [facility] Attending Dr: Referral Self Copies to: SVETLANA,Anahi Schuster APRNBOAT PATCHER PLASTIC Ordering Provider: SVETLANAREFERRAL Date of Service: 08/14/22 MM/MM screening mammo [...] Alphonso Dye M.D.08/14/2022 1:17 PM Dictation Location: [facility] Transcribed By: CITLALLI 08/14/22 1317 Dictated By: Alphonso Dye II, MD 08/14/22 1309 Signed By: 08/14/22 1317 [facility] Cytologyon 08-11-2022 Cytology (NOTE) INTERPRETATION Cervical material, (ThinPrep vial, Imaging-assisted review): Specimen Adequacy: Satisfactory for evaluation. - Endocervical/transform ation zone component present. Descriptive Diagnosis: Atypical squamous cells of undetermined significance (ASC-US). Pediatric Licensed Practical Nurse: SYLVIA Garcia Electronically Signed Out ag/08/21/2022 Procedure/Addendum [...] REPORT Patient Name: MARILOU RED Med Rec: [id number] Path Number: [id number] [facility] ANATOMIC PATHOLOGY [address] [place] [phone] Normal [facility] Comment on above: Performed By: #### P PPVP #### [facility] [address] [place], [place] [id number] Blue Leather Setter: Kane Lawson MD Albumin [Mass/volume] in Ser um or PlasmaOrdered By: Anahi Murillo on 07-05-2022 Albumin [Mass/Vol] 3.8 g/dL 3.2-5.5 [facility] Basophils Auto (Bld) [#/Vol] Ordered By: Anahi Murillo on 07-05-2022 Basophils (Bld) [#/Vol] 0.0 10*3/uL 0.0-0.2 [place] Basophils/100 WBC Auto (Bld) Ordered By: Anahi Murillo on 07-05-2022 Basophils/100 WBC (Bld) 0.7 % . F [facility] Cholesterol [Mass/volume] in Serum or PlasmaOrdered By: Anahi Murillo on 07-05-2022 Cholesterol [Mass/Vol] 169 mg/dL 140-200 Fi [facility] Comment on above: Chol less than 200 m g/dl low riskChol 201-239 mg/dl borderline riskChol 240 mg/dl and greater high risk Cholesterol in LDL Calc [Mas s/Vol]Ordered By: Anahi Murillo on 07-05-2022 Cholesterol in LDL [Mass/Vol] 94 mg/dL 0-100 [place] Comment on above: LDL ATP III CLASSIFI CATIONLDL less than 100 mg/dL OptimalLDL 100-129 mg/dL Near or above optimalLDL 130-159 mg/dL Borderline highLDL 160-189 mg/dL HighLDL greater than 189 mg/dL Very high Cholesterol in VLDL Calc [Ma ss/Vol]Ordered By: Anahi Murillo on 07-05-2022 Cholesterol in VLDL [Mass/Vol] 30 mg/dL [place] Creatinine and Glomerular fi ltration rate.predicted panel (S/P/Bld)Ordered By: Anahi Murillo on 07-05-2022 Creatinine [Mass/Vol] 0.73 mg/dL 0.44-1.03 [facility] Eosinophils Auto (Bld) [#/Vo l]Ordered By: Anahi Murillo on 07-05-2022 Eosinophils (Bld) [#/Vol] 0.2 10*3/uL 0.0-0.45 [place] Eosinophils/100 WBC Auto (Bl d)Ordered By: Anahi Murillo on 07-05-2022 Eosinophils/100 WBC (Bld) 3.1 % . [place] Erythrocyte distribution wid th Auto (RBC) [Ratio]Ordered By: Anahi Murillo on 07-05-2022 Erythrocyte distribution width (RBC) [Ratio] 14.8 % 11.9-15.3 [place] Estimated glomerular filtrat ion rate (GFR) non- AmericanOrdered By: Anahi Murillo on 07-05-2022 GFR/1.73 sq M.predicted among non-blacks MDRD (S/P/Bld) [Vol rate/Area] > 60 mL/Min [place] Globulin Calc (S) [Mass/Vol] Ordered By: Anahi Murillo on 07-05-2022 Globulin (S) [Mass/Vol] 2.6 g/dL [facility] Hematocrit Auto (Bld) [Volum e fraction]Ordered By: Anahi Murillo on 07-05-2022 Hematocrit (Bld) [Volume fraction] 38.2 % 34.0-46.4 [place] Hemoglobin [Mass/volume] in BloodOrdered By: Anahi Murillo on 07-05-2022 Hemoglobin (Bld) [Mass/Vol] 12.7 g/dL 11.8-15.4 [place] Leukocytes [#/volume] correc evelio for nucleated erythrocytes in Blood by Automated counOrdered By: Anahi Murillo on 07-05-2022 WBC corrected for nucl RBC Auto (Bld) [#/Vol] 5.5 10*3/uL 3.8-11.6 [place] Lymphocytes Auto (Bld) [#/Vo l]Ordered By: Anahi Murillo on 07-05-2022 Lymphocytes (Bld) [#/Vol] 1.5 10*3/uL 1.00-4.8 [place] Lymphocytes/100 WBC Auto (Bl d)Ordered By: Anahi Murillo on 07-05-2022 Lymphocytes/100 WBC (Bld) 27.6 % . [place] MCH Auto (RBC) [Entitic mass ]Ordered By: Anahi Murillo on 07-05-2022 MCH (RBC) [Entitic mass] 29.1 pg 24.7-34.3 [place] MCHC Auto (RBC) [Mass/Vol]Or dered By: Anahi Murillo on 07-05-2022 MCHC (RBC) [Mass/Vol] 33.3 g/dL 32.0-35.0 Fir [facility] MCV Auto (RBC) [Entitic vol] Ordered By: Anahi Murillo on 07-05-2022 MCV (RBC) [Entitic vol] 87.5 fL 80-100 F [facility] Monocytes Auto (Bld) [#/Vol] Ordered By: Anahi Murillo on 07-05-2022 Monocytes (Bld) [#/Vol] 0.4 10*3/uL 0.0-0.8 [place] Monocytes/100 WBC Auto (Bld) Ordered By: Anahi Murillo on 07-05-2022 Monocytes/100 WBC (Bld) 7.0 % . F [facility] Neutrophils Auto (Bld) [#/Vo l]Ordered By: Anahi Murillo on 07-05-2022 Neutrophils (Bld) [#/Vol] 3.4 10*3/uL 1.8-7.7 [place] Neutrophils/100 WBC Auto (Bl d)Ordered By: Anahi Murillo on 07-05-2022 Neutrophils/100 WBC (Bld) 61.6 % . [place] No Panel InformationOrdered By: Anahi Murillo on 07-05-2022 Estimated GFR () > 60 mL/Min [place] Comment on above: GFR estimated refere nce range: According to KDOQI guidelines, <60 ml/min/1.73m2 is sufficient to diagnose a patient with chronic kidney disease. Pharmacy Creatinine Clearance (Chem N/A [place] Nucleated erythrocytes [Pres ence] in Blood by Automated countOrdered By: Anahi Murillo on 07-05-2022 Nucleated RBC Auto Ql (Bld) 0.2 /100{WBC} 0-0.5 [place] Platelet mean volume Auto (B ld) [Entitic vol]Ordered By: Anahi Murillo on 07-05-2022 Platelet mean volume (Bld) [Entitic vol] 8.5 fL 6.3-10.7 [place] Platelets Auto (Bld) [#/Vol] Ordered By: Anahi Murillo on 07-05-2022 Platelets (Bld) [#/Vol] 270 10*3/uL 150-450 [place] Protein [Mass/volume] in Ser um or PlasmaOrdered By: Anahi Murillo on 07-05-2022 Protein [Mass/Vol] 6.4 g/dL 6.1-7.9 [facility] RBC Auto (Bld) [#/Vol]Ordere d By: Anahi Murillo on 07-05-2022 RBC (Bld) [#/Vol] 4.36 10*6/uL 3.60-5.00 [facility] Serum or plasma alanine stockton otransferase measurement without P-5'-P (enzymatic activiOrdered By: Anahi Murillo on 07-05-2022 ALT No additional P-5'-P [Catalytic activity/Vol] 14 U/L 10-60 [facility] Serum or plasma albumin/glob ulin mass ratioOrdered By: Anahi Murillo on 07-05-2022 Albumin/Globulin [Mass ratio] 1.5 {ratio} [place] Serum or plasma alkaline daniel sphatase measurement (enzymatic activity/volume)Ordered By: Anahi Murillo on 07-05-2022 ALP [Catalytic activity/Vol] 77 U/L 32-92 [place] Serum or plasma anion gap de terminationOrdered By: Anahi Murillo on 07-05-2022 Anion gap [Moles/Vol] 10.7 mmol/L 6.0-15.0 [facility] Serum or plasma aspartate am inotransferase measurement (enzymatic activity/volume)Ordered By: Anahi Murillo on 07-05-2022 AST [Catalytic activity/Vol] 18 U/L 10-42 [place] Serum or plasma calcium narciso urement (mass/volume)Ordered By: Anahi Murillo on 07-05-2022 Calcium [Mass/Vol] 9.1 mg/dL 8.2-10.2 [facility] Serum or plasma chloride joao surement (moles/volume)Ordered By: Anahi Murillo on 07-05-2022 Chloride [Moles/Vol] 105 mmol/L 95-114 [facility] Serum or plasma glucose narciso urement (mass/volume)Ordered By: Anahi Murillo on 07-05-2022 Glucose [Mass/Vol] 88 mg/dL 70-100 [facility] Comment on above: ADA recommended refe rence rangeRandom Glucose Reference Range is dependent on time and content of last meal. Glucose of more than 200 mg/dL in a nonstressed, ambulatory subject supports the diagnosis of Diabetes Mellitus. Serum or plasma high density lipoprotein (HDL) cholesterol measurementOrdered By: Anahi Murillo on 07-05-2022 Cholesterol in HDL [Mass/Vol] 44 mg/dL 35-85 [place] Comment on above: HDL CHOL ATP-III CLA SSIFICATION Cardiovascular RiskHDL > or equal to 60 mg/dL LOWHDL < 40 mg/dL HIGH Serum or plasma potassium me asurement (moles/volume)Ordered By: Anahi Murillo on 07-05-2022 Potassium [Moles/Vol] 4.5 mmol/L 3.5-5.1 [facility] Serum or plasma sodium measu rement (moles/volume)Ordered By: Anahi Murillo on 07-05-2022 Sodium [Moles/Vol] 137 mmol/L 136-146 [facility] Serum or plasma total biliru bin measurement (mass/volume)Ordered By: Anahi Murillo on 07-05-2022 Bilirubin [Mass/Vol] 0.5 mg/dL 0.3-1.2 [facility] Serum or plasma total carbon dioxide measurement (moles/volume)Ordered By: Anahi Murillo on 07-05-2022 CO2 [Moles/Vol] 25.8 mmol/L 22.0-30.0 [facility] Serum or plasma total choles terol/high density lipoprotein (HDL) cholesterol mass ratOrdered By: Anahi Murillo on 07-05-2022 Cholesterol.total/Choles terol in HDL [Mass ratio] 3.8 {ratio} <5.0 [place] Serum or plasma urea nitroge n measurement (mass/volume)Ordered By: Anahi Murillo on 07-05-2022 Urea nitrogen [Mass/Vol] 12 mg/dL 9-23 [place] TSH DL <= 0.005 mIU/L QnOrde red By: Anahi Murillo on 07-05-2022 TSH Qn 2.02 m[IU]/L 0.45-5.33 [place] Thyroxine (T4) free [Mass/vo lume] in Serum or PlasmaOrdered By: Anahi Murillo on 07-05-2022 Free T4 [Mass/Vol] 0.68 ng/dL 0.61-1.12 [facility] Triglyceride [Mass/volume] i n Serum or PlasmaOrdered By: Anahi Murillo on 07-05-2022 Triglyceride [Mass/Vol] 153 mg/dL 35-149 F [facility] Comment on above: TRIG ATP III CLASSIF ICATIONTRIG less than 150 mg/dL NormalTRIG 150-199 mg/dL Borderline highTRIG 200-500 mg/dL High TRIG greater than 500 mg/dL Very highStandard traceable to the Center for Disease Conrtrol and Prevention (CDC) test method. WBC Auto (Bld) [#/Vol]Ordere d By: Anahi Murillo on 07-05-2022 WBC (Bld) [#/Vol] 5.5 10*3/uL 3.8-11.6 [facility] OPERATIVE REPORTon 0 OPERATIVE REPORT [address] [id number] OPERATIVE REPORT PATIENT NAME: MARILOU RED : 1980 MED REC NO: [id number] ROOM: ACCOUNT NO: [id number] ADMIT DATE: 02/17/2020 PROVIDER: Rayray Hart DATE [...] recovery room in satisfactory condition. RAYRAY HART VA/V_OPSAJ_T Doc#: [id number] CC: Normal [facility] POCT HCG, Prenancy, Uron Beta HCG ( test) Ql (U) Negative NEGATIVE [place], [place] Comment on above: HCG screen is sensitive to 25 mIU/mL. However this test may sweet pickle maker lower levels of HCG. If further evaluation is needed please request quantitative HCG. - NOT REPORTED [place], [place] Surgical Pathologyon 020 Surgical Pathology (NOTE) [id number] [place], [place] [id number] SURGICAL PATHOLOGY REPORT Patient Name: MARILOU RED MR#: [id number] Specimen #[id number] Final Diagnosis RIGHT EAR: CHOLESTEATOMA Aries Ferguson D.O. Electronically Signed Out [facility]/02/19/2020 Clinical Information Removal cholesteatoma right ear; patient to do COVID test at [facility], to bring results with her; formalin time: 15:16 Source: A: Cholesteatoma in right ear Gross Description Received in formalin labeled cholesteatoma right ear are portions of pink to pfeiffer-thomas soft tissue aggregating to approximately 0.4 x 0.2 x 0.1 cm . The specimen is entirely submitted in a single cassette. LJF/anayeli Microscopic Description Microscopic examination of one YURIDIA slide confirms the diagnosis. Normal [facility] Comment on above: Performed By: #### P PPES #### [facility] [address] [place] [address]. [place], [place] [id number] Blue Leather Setter: Aries Ferguson DO CBC Auto Differentialon 01-26 Basophils (Bld) [#/Vol] 0.00 10*3/uL [place], [place] Basophils/100 WBC (Bld) 1 % 0 - 2 % [place], [place] Differential Type NOT REPORTED [place] Eosinophils (Bld) [#/Vol] 0.20 10*3/uL [place] Eosinophils/100 WBC (Bld) 3 % 0 - 4 % [place] Erythrocyte distribution width (RBC) [Ratio] 13.7 % 11.5 - 14.9 % [place] Hematocrit (Bld) [Volume fraction] 39.0 % 36 - 46 % [place] Hemoglobin (Bld) [Mass/Vol] 13.2 g/dL 12 - 16 g/dL [place] Lymphocytes (Bld) [#/Vol] 1.50 10*3/uL [place] Lymphocytes/100 WBC (Bld) 25 % 24 - 44 % [place] MCH (RBC) [Entitic mass] 31.0 pg 26 - 34 pg [place] MCHC (RBC) [Mass/Vol] 33.9 g/dL 31 - 37 g/dL [place] MCV (RBC) [Entitic vol] 91.3 fL 80 - 100 fL [place] Monocytes (Bld) [#/Vol] 0.40 10*3/uL [place] Monocytes/100 WBC (Bld) 7 % 1 - 7 % [place] Platelet mean volume (Bld) [Entitic vol] 8.9 fL 6 - 12 fL [place] Platelets (Bld) [#/Vol] NOT REPORTED [place] Platelets (Bld) [#/Vol] 256 10*3/uL [place] RBC (Bld) [#/Vol] 4.27 10*6/uL 4 - 5.2 m/uL [place], [place] RBC morphology finding Nom (Bld) NOT REPORTED [place] Segmented neutrophils/100 WBC (Bld) 64 % 36 - 66 % [place] Segs Absolute 4.00 [place] WBC (Bld) [#/Vol] NOT REPORTED per 100 WBC [place] WBC (Bld) [#/Vol] 6.2 10*3/uL [place] WBC Morphology NOT REPORTED [place] CBC with Diffon 02-10-2020 Abs. Basophil 0.00 k/uL Normal 0.0-0.2 [facility] Comment on above: Performed By: #### C DP #### [facility] [address] [facility] [place] [address] Blue Leather Setter: Aries Ferguson DO Abs.Neutrophil (Seg) 4.00 k/uL Normal 1.3-9.1 [facility] Comment on above: Performed By: #### C DP #### [facility] [address] [place] [address] Blue Leather Setter: Aries Ferguson DO Basophils/100 WBC (Bld) 1 % Normal 0-2 [facility] Comment on above: Performed By: #### C DP #### [facility] [place] [address] Blue Leather Setter: Aries Ferguson DO Eosinophils (Bld) [#/Vol] 0.20 10*3/uL Normal 0.0-0.4 [facility] Comment on above: Performed By: #### C DP #### [facility] [place] [address] Blue Leather Setter: Aries Ferguson DO Eosinophils/100 WBC (Bld) 3 % Normal 0-4 [facility] Comment on above: Performed By: #### C DP #### [facility] [place] [address] Blue Leather Setter: Aries Ferguson DO Erythrocyte distribution width (RBC) [Ratio] 13.7 % Normal 11.5-14.9 [facility] Comment on above: Performed By: #### C DP #### [facility] [place] [address] Blue Leather Setter: Aries Ferguson DO Hematocrit (Bld) [Volume fraction] 39.0 % Normal 36-46 [facility] Comment on above: Performed By: #### C DP #### [facility] [address] [place] [address] Blue Leather Setter: Aries Ferguson DO Hemoglobin (Bld) [Mass/Vol] 13.2 g/dL Normal 12.0-16.0 [facility] Comment on above: Performed By: #### C DP #### [facility] [place] [address] Blue Leather Setter: Aries Ferguson DO Lymphocytes (Bld) [#/Vol] 1.50 10*3/uL Normal 1.0-4.8 [facility] Comment on above: Performed By: #### C DP #### [facility] [place] [address] Blue Leather Setter: Aries Ferguson DO Lymphocytes/100 WBC (Bld) 25 % Normal 24-44 [facility] Comment on above: Performed By: #### C DP #### [facility] [address] [place] [address] Blue Leather Setter: Aries Ferguson DO MCH (RBC) [Entitic mass] 31.0 pg Normal 26-34 [facility] Comment on above: Performed By: #### C DP #### [facility] [address] [place] [address] Blue Leather Setter: Aries Ferguson DO MCHC (RBC) [Mass/Vol] 33.9 g/dL Normal 31-37 [facility] Comment on above: Performed By: #### C DP #### [facility] [place] [address] Blue Leather Setter: Aries Ferguson DO MCV (RBC) [Entitic vol] 91.3 fL Normal 80-[address] [facility] Comment on above: Performed By: #### C DP #### [facility] [address] [place] [address] Blue Leather Setter: Aries Ferguson DO Monocytes (Bld) [#/Vol] 0.40 10*3/uL Normal 0.1-1.3 [facility] Comment on above: Performed By: #### C DP #### [facility] [address] [place] [address] Blue Leather Setter: Aries Ferguson DO Monocytes/100 WBC (Bld) 7 % Normal 1-[address] [facility] Comment on above: Performed By: #### C DP #### [facility] [place] [address] Blue Leather Setter: Aries Ferguson DO Neutrophil (Seg) 64 % Normal 36-66 [facility] Comment on above: Performed By: #### C DP #### [facility] [address] [place] [address] Blue Leather Setter: Aries Ferguson DO Platelet mean volume (Bld) [Entitic vol] 8.9 fL Normal 6.0-12.0 [facility] Comment on above: Performed By: #### C DP #### [facility] [place] [address] Blue Leather Setter: Aries Ferguson DO Platelets (Bld) [#/Vol] 256 10*3/uL Normal 150-450 [facility] Comment on above: Performed By: #### C DP #### [facility] [place] [address] Blue Leather Setter: Aries Ferguson DO RBC (Bld) [#/Vol] 4.27 10*6/uL Normal 4.0-5.2 [facility] Comment on above: Performed By: #### C DP #### [facility] [place] [address] Blue Leather Setter: Aries Ferguson DO WBC (Bld) [#/Vol] 6.2 10*3/uL Normal 3.5-11.0 [facility] Comment on above: Performed By: #### C DP #### [facility] [address] [place] [address] Blue Leather Setter: Aries Ferguson DO Abs.Imm.Granulocyte NOT REPORTED Normal 0.00-0.30 [facility] Comment on above: Performed By: #### C DP #### [facility] [address] [place] [address] Blue Leather Setter: Aries Ferguson DO Auto Diff Performed NOT REPORTED Normal [facility] Comment on above: Performed By: #### C DP #### [facility] [address] [place] [address] Blue Leather Setter: Aries Ferguson DO Immature granulocytes (Bld) [#/Vol] NOT REPORTED Normal 0 [facility] Comment on above: Performed By: #### C DP #### [facility] [address] [place] [address] Blue Leather Setter: Aries Ferguson DO NRBC Automated NOT REPORTED Normal [facility] Comment on above: Performed By: #### C DP #### [facility] [address] [place] [address] Blue Leather Setter: Aries Ferguson DO Platelets (Bld) [#/Vol] NOT REPORTED Normal [facility] Comment on above: Performed By: #### C DP #### [facility] [address] [place] [address] Blue Leather Setter: Aries Ferguson DO RBC morphology finding Nom (Bld) NOT REPORTED Normal [facility] Comment on above: Performed By: #### C DP #### [facility] [address] [place] [address] Blue Leather Setter: Aries Ferguson DO WBC Morphology NOT REPORTED Normal [facility] Comment on above: Performed By: #### C DP #### [facility] [address] [place] [address] Blue Leather Setter: Aries Ferguson DO Otheron 02-10-2020 Immature granulocytes (Bld) [#/Vol] NOT REPORTED [facility] [place] IAC POSTERIOR FOSSA WO CO NTRASTon [...] Arnold Valiente MD 01/21/20 Final result Normal [facility] HPV DNA High Riskon 11-17-19 20 HPV Interp [facility] Comment on above: Result Comment: This [...] purposes. Performed By: #### H PVH #### [address] [address] Blue Leather Setter: Kane Lawson MD HPV Type 16 Not Detected Normal [facility] Comment on above: Performed By: #### H PVH #### [facility] [address] [place] [address] Blue Leather Setter: Kane Lawson MD HPV Type 18 Not Detected [facility] Comment on above: Performed By: #### H PVH #### [address] [id number] Blue Leather Setter: Kane Lawson MD Other High Risk HPV Not Detected [facility] Comment on above: Performed By: #### H PVH #### [facility] [employer] [address] [place] [address] Blue Leather Setter: Kane Lawson MD HPV DNA High Riskon 11-14-19 20 HPV Sample .THIN PREP Normal [facility] Comment on above: Performed By: #### H PVH #### [facility] [address] [place], [place] [id number] Blue Leather Setter: Kane Lawson MD Source .CERVIX Normal [facility] Comment on above: Performed By: #### H PVH #### [facility] [address] [place], [place] [phone] Blue Leather Setter: Kane Lawson MD Cytologyon 11-04-2019 Cytology (NOTE) INTERPRETATION Cervical material, (ThinPrep vial, Imaging-assisted review): Specimen Adequacy: Satisfactory for evaluation. - Endocervical/transform ation zone component present. Descriptive Diagnosis: Atypical squamous cells of undetermined significance (ASC-US). Comments: High Risk HPV testing was ordered. Pediatric Licensed Practical Nurse: MARTIN Vora M.D. 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 High Risk HPV DNA testing is requested if the diagnosis is ASC-US LMP: 10/20/2019 GYNECOLOGIC CYTOLOGY REPORT Patient Name: MARILOU RED [facility] Rec: [id number] Path Number: [id number] [facility] [facility] ANATOMIC PATHOLOGY [address] [place] [phone] Normal [facility] Comment on above: Performed By: #### P PPVP #### [facility] [address] [place] [address] Blue Leather Setter: Kane Lawson MD Hep B Surf Abon 03-25-2018 Hep B Surf Ab 134.10 mIU/mL High <10 [facility] Comment on above: Result Comment: REFE [...] B infection. Performed By: #### A HBS ####[address] [place] [address] Vital Signs Date Time Vital Sign Value Performing Clinician Facility 09-14-2021 09:45-0400 Body height 172.09 cm Maldonado Ulloa Other [email or web address] Other 09-14-2021 09:45-0400 Body mass index (BMI) [Ratio] 32.97 kg/m2 Maldonado Ulloa Other [email or web address] Other 09-14-2021 09:45-0400 Body weight 97.66 kg Maldonado Ulloa Other [email or web address] Other 09-14-2021 09:45-0400 Diastolic blood pressure 75 mm[Hg] Maldonado Ulloa Other [email or web address] Other 09-14-2021 09:45-0400 Respiratory rate 18 /min Maldonado Morochodiff Other [email or web address] Other 09-14-2021 09:45-0400 SaO2% (BldA) [Mass fraction] 100 % Maldonado Morochodiff Other [email or web address] Other 09-14-2021 09:45-0400 Systolic blood pressure 97 mm[Hg] Maldonado Ulloa Other [email or web address] Other 08-12-2021 09:30-0400 Body height 172.09 cm Jenna Scally Other [email or web address] Other 08-12-2021 09:30-0400 Body mass index (BMI) [Ratio] 33.4 kg/m2 Jenna Scally Other [email or web address] Other 08-12-2021 09:30-0400 Body weight 98.93 kg Jenna Scally Other [email or web address] Other 08-12-2021 09:30-0400 Diastolic blood pressure 85 mm[Hg] Jenna Scally Other [email or web address] Other 08-12-2021 09:30-0400 Respiratory rate 18 /min Jenna Scally Other [email or web address] Other 08-12-2021 09:30-0400 SaO2% (BldA) [Mass fraction] 100 % Jenna Olson Other [email or web address] Other 08-12-2021 09:30-0400 Systolic blood pressure 106 mm[Hg] Jenna Olson Other [email or web address] Other 06-01-2021 09:45-0500 Body height 172.09 cm Maldonado Ulloa Other [email or web address] Other 06-01-2021 09:45-0500 Body mass index (BMI) [Ratio] 33.59 kg/m2 Maldonado Ulloa Other [email or web address] Other 06-01-2021 09:45-0500 Body weight 99.47 kg Maldonado Ulloa Other [email or web address] Other 06-01-2021 09:45-0500 Diastolic blood pressure 77 mm[Hg] Maldonado Ulloa Other [email or web address] Other 06-01-2021 09:45-0500 Respiratory rate 18 /min Maldonado Ulloa Other [email or web address] Other 06-01-2021 09:45-0500 SaO2% (BldA) [Mass fraction] 100 % Maldonado Ulloa Other [email or web address] Other 06-01-2021 09:45-0500 Systolic blood pressure 111 mm[Hg] Maldonado Ulloa Other [email or web address] Other 04-20-2021 09:45-0500 Body height 172.09 cm Maldonado Ulloa Jr. Other [email or web address] Other 04-20-2021 09:45-0500 Body mass index (BMI) [Ratio] 33.48 kg/m2 Maldonado Morochosheryl Mccoy. Other [email or web address] Other 04-20-2021 09:45-0500 Body weight 99.16 kg Maldonado Morochosheryl Mccoy. Other [email or web address] Other 04-20-2021 09:45-0500 Diastolic blood pressure 77 mm[Hg] Maldonado Morochosheryl Rai Other [email or web address] Other 04-20-2021 09:45-0500 Respiratory rate 18 /min Maldonado Laila Rai Other [email or web address] Other 04-20-2021 09:45-0500 SaO2% (BldA) [Mass fraction] 100 % Maldonadoleonardo Ulloa Jr. Other [email or web address] Other 04-20-2021 09:45-0500 Systolic blood pressure 105 mm[Hg] Maldonado Morochosheryl Rai Other [email or web address] Other 02-23-2021 09:15-0400 Body height 172.09 cm Maldonado Lailasheryl Rai Other [email or web address] Other 02-23-2021 09:15-0400 Body mass index (BMI) [Ratio] 35.46 kg/m2 Maldonado Morochosheryl Rai Other [email or web address] Other 02-23-2021 09:15-0400 Body weight 105.01 kg Maldonado Morochosheryl Mccoy. Other [email or web address] Other 02-23-2021 09:15-0400 Diastolic blood pressure 74 mm[Hg] Maldonado Ulloa . Other [email or web address] Other 02-23-2021 09:15-0400 Respiratory rate 18 /min Maldonado Ulloa . Other [email or web address] Other 02-23-2021 09:15-0400 SaO2% (BldA) [Mass fraction] 99 % Maldonado Galvanedie Rai Other [email or web address] Other 02-23-2021 09:15-0400 Systolic blood pressure 108 mm[Hg] Maldonado Ulloa . Other [email or web address] Other 02-17-2020 16:30-0400 BP Diastolic 67 mm[Hg] [employer] 02-17-2020 16:30-0400 BP Systolic 126 mm[Hg] [email or web address] [place] 02-17-2020 16:20-0400 Body Temperature 97.11 [degF] [facility] [place] 02-17-2020 16:20-0400 Pulse (Heart Rate) 68 /min [email or web address] [place] 02-17-2020 16:20-0400 Pulse Oximetry 100 % [email or web address] [place] 02-17-2020 16:20-0400 Respiratory Rate 16 /min [email or web address] [place] [facility] 02-17-2020 12:10-0400 BMI (Body Mass Index) 35.55 kg/m2 [facility] [place] 02-17-2020 12:10-0400 Body weight 102.97 kg [email or web address] , [place] 02-17-2020 12:10-0400 Height 170.2 cm [facility]ray [employer] [facility] , [place] 02-10-2020 08:06-0400 BMI (Body Mass Index) 35.62 kg/m2 [facility], [place] 02-10-2020 08:06-0400 Body Temperature 97.81 [degF] [facility] [place] , [place] 02-10-2020 08:06-0400 Body weight 103.15 kg [facility] 1 [facility] , [place] 02-10-2020 08:06-0400 BP Diastolic 77 mm[Hg] [facility] , [place] 02-10-2020 08:06-0400 BP Systolic 109 mm[Hg] [facility] , [place] 02-10-2020 08:06-0400 Height 170.2 cm [facility] 1 [facility] , [place] 02-10-2020 08:06-0400 Pulse (Heart Rate) 79 /min St 1 [facility], [place] 02-10-2020 08:06-0400 Pulse Oximetry 100 % St 1 [facility] , [place] 02-10-2020 08:06-0400 Respiratory Rate 12 /min [facility] [employer], [place] Encounters Encounter Date Encounter Type Care Provider Facility Start: 07-12-2023 End: 07-12-2023 ambulatory Mateusz Burnett Facility:[place] Start: 07-12-2023 End: 07-12-2023 ambulatory MD Mateusz Burnett Work Phone: [facility] Work Phone: Start: 07-12-2023 End: 07-12-2023 Patient encounter procedure MD Mateusz Burnett Work Phone: [facility] Start: 06-08-2023 End: 06-09-2023 ambulatory [facility] Start: 08-23-2022 End: 08-24-2022 ambulatory YVONNE LARA MD Facility:[id number] Start: 08-14-2022 End: 08-14-2022 ambulatory Anahi Murillo Facility:[place] Start: 08-11-2022 End: 08-12-2022 [facility] Start: 08-11-2022 End: 08-11-2022 Subsequent hospital visit by physician Anahi Murillo PASTORAL ASSISTANT - [employer]AT P[employer] Work Phone: [facility] Comment on above: 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 Start: 07-05-2022 End: 07-05-2022 ambulatory PASTORAL ASSISTANT Anahi Juan A Chidi Work Phone: [facility] Work Phone: Start: 07-05-2022 End: 07-05-2022 Patient encounter procedure PASTORAL ASSISTANTCynthia Murillo Work Phone: [facility] [place] Work Phone: Start: 12-14-2021 End: 12-14-2021 Patient encounter procedure Anahi Murillo PASTORAL ASSISTANT - [employer] P[employer] Work Phone: [facility] Start: 12-14-2021 End: 12-14-2021 Subsequent hospital visit by physician Anahi Murillo PASTORAL ASSISTANT - [employer] P[employer] Work Phone: [facility] Comment on above: Women's annual routi ne gynecological examination Start: 09-14-2021 End: 09-14-2021 ambulatory Maldonado Ulloa Other [email or web address] Other Start: 09-14-2021 Follow-up encounter Maldonado guerrero [facility] Start: 08-12-2021 (FCCCWMNF/U) Weight Management f/u Jenna Olson [facility] Start: 08-12-2021 End: 08-12-2021 ambulatory Jenna Olson Other [email or web address] Other Start: 08-09-2021 End: 08-09-2021 ambulatory Maldonado Ulloa Other [email or web address] Other Start: 08-09-2021 Telephone encounter Maldonado guerrero [facility] Start: 07-04-2021 End: 07-04-2021 ambulatory Maldonado Ulloa Other [email or web address] Other Start: 07-04-2021 Telephone encounter Maldonado Laila Simon cesar [facility] Start: 06-20-2021 End: 06-20-2021 ambulatory Elva Martins Other [email or web address] Other Start: 06-20-2021 [facility] Start: 06-01-2021 End: 06-01-2021 ambulatory Maldonado Ulloa Other [email or web address] Other Start: 06-01-2021 Follow-up encounter Maldonado Laila weinsteinchico [facility] Start: 04-20-2021 End: 04-20-2021 ambulatory Maldonado Ulloa Jr. 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[employer] Work Phone: [facility] Laboratory Comment on above: 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 Start: 06-07-2020 End: 06-07-2020 Subsequent hospital visit by physician Mateusz Burnett [facility] Comment on above: Vulval lesion; LGSIL on Pap smear of cervix Start: 05-03-2020 End: 05-03-2020 Subsequent hospital visit by physician Mateusz Burnett [facility] Laboratory Comment on above: ASCUS of cervix with negative high risk HPV Start: 02-17-2020 End: 02-17-2020 Patient encounter procedure RAY[facility] Start: 02-17-2020 End: 02-17-2020 Subsequent hospital visit by physician Rayray Hart Work Phone: [facility] Start: 02-13-2020 End: 02-13-2020 Subsequent hospital visit by physician Ronni Covid [facility] Comment on above: Preop testing Start: 02-10-2020 End: 02-15-2020 Patient encounter procedure RAYRAY [facility] Start: 02-10-2020 End: 02-14-2020 Subsequent hospital visit by physician Jermaine Pat Rm 1 [facility] Pre-Admit Testing Start: 01-21-2020 End: 01-24-2020 Patient encounter procedure [facility] Start: 11-04-2019 End: 11-05-2019 Patient encounter procedure [facility] Start: 11-04-2019 End: 11-04-2019 Subsequent hospital visit by physician Mateusz Burnett [facility] Comment on above: Women's annual routi ne gynecological examination Start: 03-25-2018 End: 03-26-2018 [facility] Procedures Date Procedure Procedure Detail Performing Clinician Start: 12-14-2021 Microscopic observat ion [Identifier] in Cervix by Cyto stain Anahi Murillo PASTORAL ASSISTANT - [employer]AT P[employer] Work Phone: Start: 12-02-2020 Microscopic observat ion [Identifier] in Cervix by Cyto stain Anahi Murillo APRN - [employer]AT P[employer] Work Phone: Start: 02-17-2020 DISCHARGE PATIENT RAYRAY [...] 02-10-2020 Blood count complete auto&auto difrntl wbc [facility] Eyal Work Phone: Start: 01-21-2020 Ct orbit sella/post fossa/ear w/o contrast matrl RAYRAY [facility] Start: 11-04-2019 Screen pap by renard LI Start: 03-25-2018 HEPATITIS B SURFACE ANTIBODY MARU EDWARD Plan of Treatment Date Care Activity Detail Author Start: 03-21-2028 DTaP/Tdap/Td vaccine (2 - Td or Tdap) DTaP/Tdap/Td vaccine (2 - Td or Tdap) [facility] Start: 03-21-2028 DTaP/Tdap/Td vaccine (2 - Td) DTaP/Tdap/Td vaccine (2 - Td) [place] Start: 12-14-2026 Screening for malign ant neoplasm of cervix [facility] Start: 12-03-2025 Screening for malign ant neoplasm of cervix [facility] Start: 05-03-2025 Screening for malign ant neoplasm of cervix Cervical cancer screen [place], [place] Start: 12-14-2024 Screening for malign ant neoplasm of cervix Pap smear [facility] Start: 11-03-2024 Screening for malign ant neoplasm of cervix Cervical cancer screen [place] Start: 12-03-2023 Screening for malign ant neoplasm of cervix Pap smear [facility] Start: 04-30-2023 Screening for malign ant neoplasm of cervix Cervical cancer screen [place] Start: 08-22-2022 Lipid panel Lipids [facility] Start: 01-26-2022 Influenza vaccination Flu vaccine (# 1) [facility] Start: 12-26-2021 Influenza vaccination Flu vaccine (# 1) [facility] Start: 07-09-2021 COVID-19 Vaccine (4 - Booster for Moderna series) COVID-19 Vaccine (4 - Booster for Moderna series) [facility] Start: 06-07-2021 Depression Screen Depression Screen [facility] Start: 01-26-2021 Influenza vaccination Flu vaccine (# 1) [facility] Work Phone: Start: 07-26-2020 End: 07-26-2020 Office Visit 07/26/2020 Office Visit Obstetrics and Gynecology Salvatore Li MD [address] [place], [place] [id number] [facility] Start: 05-03-2020 End: 05-03-2020 Office Visit 05/03/2020 Office Visit Obstetrics and Gynecology Salvatore Li MD [address] [place] [address] [phone] [facility] Start: 02-17-2020 End: 02-17-2020 Hospital Encounter [facility] Comment on above: REMOVAL CHOLESTEATOM A Start: 01-27-2020 [facility] Start: 12-02-2019 End: 12-02-2019 Office Visit 12/02/2019 Office Visit Obstetrics and Gynecology Salvatore Li MD [address] [place], [place] [id number] [facility] 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 Start: 2016 Diabetes screen Diabetes screen [facility] Start: 2000 DTaP/Tdap/Td vaccine (1 - Tdap) DTaP/Tdap/Td vaccine (1 - Tdap) [place], [place] Start: 11-14-1999 Hepatitis C screening Hepatitis C sc reen [facility] Start: 1993 Depression Screen Depression Screen [facility] Start: 1982 Varicella vaccine (1 of 2 - 2-dose childhood series) Varicella vaccine (1 of 2 - 2-dose childhood series) [facility] Start: 05-15-1982 COVID-19 Vaccine (#1) COVID-19 Vacci ne (#1) [facility] Start: 1981 Hepatitis C screening Hepatitis C sc reen [place], [place] End: 02-13-2020 COVID-19 Ambulatory COVID-19 Ambulatory Lab Routine Preop testing 1 Occurrences starting 02/13/2020 until 02/13/2020 [place] Comment on above: 1 Occurrences starti ng 02/13/2020 until 02/13/2020 COVID-19 Ambulatory COVID-19 Amb ulatory Lab Routine Preop testing 02/13/2020 7:21 AM EDT [place] End: 11-04-2019 Cytopathology procedure, preparation of smear, genital source PAP SMEAR Lab Routine Women's annual routine gynecological examination 1 Occurrences starting 11/04/2019 until 11/04/2019 [place] Comment on above: 1 Occurrences starti ng 11/04/2019 until 11/04/2019 End: 05-03-2020 Cytopathology procedure, preparation of smear, genital source PAP SMEAR Lab Routine ASCUS of cervix with negative high risk HPV 1 Occurrences starting 05/03/2020 until 05/03/2020 [place] Comment on above: 1 Occurrences starti ng 05/03/2020 until 05/03/2020 End: 12-02-2020 Cytopathology procedure, preparation of smear, genital source PAP SMEAR Lab Routine LGSIL on Pap smear of cervix 1 Occurrences starting 12/02/2020 until 12/02/2020 [facility] Phone: Comment on above: 1 Occurrences starti ng 12/02/2020 until 12/02/2020 End: 12-14-2021 Cytopathology procedure, preparation of smear, genital source PAP SMEAR Lab Routine Women's annual routine gynecological examination 1 Occurrences starting 12/14/2021 until 12/14/2021 [facility] [employer] Phone: Comment on above: 1 Occurrences starti ng 12/14/2021 until 12/14/2021 End: 08-11-2022 Cytopathology procedure, preparation of smear, genital source PAP SMEAR Lab Routine LGSIL on Pap smear of cervix 1 Occurrences starting 08/11/2022 until 08/11/2022 GISELLE PETTY [facility] Work Phone: Comment on above: 1 Occurrences starti ng 08/11/2022 until 08/11/2022 Oxygen therapy [[facility] Data Set] Initiate Oxygen Therapy Protocol Respiratory Care Routine Daily until discontinued starting 02/17/2020 [place], [place] Comment on above: Daily until disconti nued starting 02/17/2020 Phase I & II - meter ed glucose Phase I & II - metered glucose Point of Care Testing Routine As Needed until discontinued starting 02/17/2020 [place] Comment on above: As Needed until disc ontinued starting 02/17/2020 Surgical Pathology Surgical Path ology Lab Routine Release Upon Ordering for 1 Occurrences starting 02/17/2020 [place] Comment on above: Release Upon Orderin g for 1 Occurrences starting 02/17/2020 End: 06-07-2020 Surgical Pathology [place], [place] Comment on above: 1 Occurrences starti ng 06/07/2020 until 06/07/2020 Immunizations Immunization Date Immunization Notes Care Provider Fa chad 03-06-2017 Influenza Vaccine, unspecified formulation [place], [place] 03-08-2016 Influenza Vaccine, unspecified formulation [place] Payers Date Payer Category Payer Self-pay [id number] 2019 [employer] ( and others) [facility] xxxxxxxxxxx 2019-Present xxxxxxxxxxx [id number] 2019 [employer] ( and others) [id number] 2019 [employer] ( and others) [facility] [id number] 2019-Present [phone] [address] [place] [address] [id number] 2019 [employer] ( and others) [id number] 1981 Unknown [id number] 1981 Unknown [id number] 1981 Unknown [id number] 1981 Unknown [id number] 1981 Unknown [id number] 1981 Unknown [id number] 1981 Unknown [id number] [employer] ( and others) [id number] Unknown Other1 (STD) [id number] Unknown Insurance No Card [id number] Unknown [id number] Unknown [id number] Social History Date Type Detail Facility Start: 01-22-2014 End: 11-04-2019 Tobacco smoking status NHIS Never smoker GISELLE [facility] Start: 11-04-2019 End: 08-11-2022 Alcohol intake Current drinker of alcohol (finding) [place], [place] Start: 01-22-2014 Alcohol Comment [place] Start: 1980 Sex Assigned At Not on file [facility] [employer] DOMINICK JEAN Exposure to SARS-CoV-2 (event) Unable to assess [facility]ita [employer] DOMINICK JEAN Start: 01-22-2014 End: 02-10-2020 Tobacco use and exposure Never used Anita [employer] DOMINICK JEAN Exposure to SARS-CoV-2 (event) Not sure Anita Team-MatchDOMINICK Sex Assigned At Sex Assigned At Bir th [email or web address] Other Start: 1980 Sex Assigned At Female F [facility] Clinical Notes 02-23-2021 to 09-14-2021 Note Date & Type Note Facility 09-14-2021 Evaluation note Encounter Date Diagnosis Assessment Notes Aug, Mixed hyperlipidemia (ICD-10 - E78.2) Aug, Obesity (BMI 30.0-34.9) (ICD-10 - E66.9) Aug, Vitamin D deficiency (ICD-10 - E55.9) Aug, Anxiety (ICD-10 - F41.9) Aug, Encounter for medication management (ICD-10 - Z79.899) [facility] Other 03-18-2022 Evaluation note* Encounter Date Diagnosis [...] was counseling done by myself, Danielle TROTTER. [email or web address] Other 11-24-2021 Evaluation note* Encounter Date Diagnosis Assessment Notes Treatment Notes Treatment Clinical Notes Mar, Mixed hyperlipidemia (ICD-10 - E78.2) Mar, Obesity (BMI 30.0-34.9) (ICD-10 - E66.9) Mar, Anxiety (ICD-10 - F41.9) [email or web address] Other 09-29-2021 Evaluation note* Encounter Date Diagnosis Assessment Notes Treatment Notes Treatment Clinical Notes Jan, Mixed hyperlipidemia (ICD-10 - E78.2) Jan, Obesity (BMI 35.0-39.9 without comorbidity) (ICD-10 - E66.9) Jan, Anxiety (ICD-10 - F41.9) [email or web address] Other Evaluation note* Diagnosis LGSIL on Pap smear of cervix documented in this encounter [employer] Phone: evaluation noteNo InformationNort [employer] Other Evaluation [employer] Other Evaluation note* Diagnosis Women's annual routine gynecological examination documented in this encounter [facility] [email or web address] Work Phone: evaluation noteNo assessment information available [facility] Work Phone: Evaluation note* Diagnosis LGSIL on Pap smear of cervix documented in this encounter [facility]ISELLE [employer] Phone: History general Narrative - Reported* Type Description Date Medical History anxiety Surgical History Right Ear Surgery [facility] Other History general [facility] - [facility] Other Summary Purpose Family History No Family History Records Found Relationship Condition Age at Onset Recorded Date/T haylie father Malignant neoplasm Unknown Malignant neoplasm of urinary bladder Unk nown Unknown Not Specified Malignant neoplasm Unknown Advance Directives No Advanced Directives Records FoundDocuments on File Type Date Recorded 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 Wear loose comfortable clothing. 3. Leave your valuables at home. Bring a storage case for any glasses/contacts. 4. An adult who is responsible for you MUST drive you home and should be with you for the first 24 hours after surgery. The Day of Surgery: Arrive at [facility] Surgery Entrance at the time directed by your surgeon and check in at the desk. If you have a living will or healthcare power of oil refiner, please bring a copy. You will be taken to the pre-op holding area where you will be prepared for surgery. A physical assessment will be performed by a nurse practitioner or house wirer helper. Your IV will be started and you [...] section and content) DATE CREATED AUTHOR 05/24/2018 [facility] DATE CREATED AUTHOR AUTHOR'S ORGANIZ ATION 12/13/2019 [facility] DATE CREATED AUTHOR AUTHOR'S ORGANIZ ATION 02/20/2020 [facility] DATE CREATED AUTHOR AUTHOR'S ORGANIZ ATION 08/26/2022 [facility] DATE CREATED AUTHOR AUTHOR'S ORGANIZ ATION [facility]20[facility] DATE CREATED AUTHOR AUTHOR'S ORGANIZ ATION 07/27/2023 [facility] Reason for Visit (unrecogniz ed section and content) Status Reason Specialty Diagnoses / Procedures Referre d By Contact Referred To Contact Diagnoses 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 Procedures MD EXC SKIN BENIG <5MM FACE,FACIAL REMOVAL CHOLESTEATOMA Rayray Hart MD [facility] [address] [place] [address] [facility] Care Teams (unrecognized sec tion and content) Workers' Compensation Claims Supervisor Relationship Specialty Start Date End Date Anahi Murillo [place] [employer] [address] [place] [address] PCP - General Nurse Practitioner 12/02/20 Team Status: Inactive Member Role Status Dates Anahi Murillo APRN RETAIL PROJECT MERCHANDISER-C Primary Care Provider, Attending Provider Active Team Status: Active Member Role Status Dates Anahi Murillo APRN RETAIL PROJECT MERCHANDISER-C Primary Care Provider Active Workers' Compensation Claims Supervisor Relationship Specialty Start Date End Date Anahi MurilloINDIA - [employer] [address] [place] [address] PCP - General Nurse Practitioner 12/02/20 Team Status: Active Member Role Status Dates Mateusz Burnett MD Primary Care Provider Active Team Status: Inactive Member Role Status Dates Mateusz Burnett MD Primary Care Provide r, Attending [...] BE BASED ON THE PRIMARY CLINICAL RECORDS. [employer] provides no warranty or guarantee of the accuracy or completeness of information in this document.
== END 2023-08-16 07:28 | disposition home or self-care (01) ==
LOC: VC 07:27
PROVIDERS: Family Provider Family Medicine; PCP Radiology Diagnostic Radiology; Visit Provider Radiology Diagnostic Radiology
DX: I80.02 Phlebitis and thrombophlebitis of superficial vessels of left lower extremity (principal)
CPT/HCPCS: 93971; G0463